=== PATIENT | male | born 1955 | race Caucasian/White ===

== ENCOUNTER → 2016-10-23 | Outpatient (CLI) | payer SELFPAY | LOC: MW.CHGS 09:33 | PROVIDERS: ATTEND Surgery | DX: I48.91 Unspecified atrial fibrillation (principal) | CPT/HCPCS: 93005 ==

== ENCOUNTER 2016-11-02 10:20 | Day surgery (SDC) | payer BC ==
[~2016-11-02 10:20] MED LIST: Lactated Ringers 1,000 ML IV SCH
[2016-11-02] MEDS ORDERED: Propofol 200 MG/20 ML SDV ONE (10:39)
[2016-11-02] MEDS ORDERED: Lidocaine 2% 5 ML SDV ONE (10:39)
--- NOTE | 2016-11-02 11:08 | PCM.PREANE ---
Preanesthetic Assessment - Anesthesia/Transfusion/Family Hx Anesthesia History: Prior Anesthesia Without Reaction Other Type of Anesthesia Reaction Comment: Denies any known problems in past, no known family hx: problems Family History of Anesthesia Reaction: No Transfusion History: No Prior Transfusion(s) - Review of Systems General: No Symptoms Pulmonary: No Symptoms Cardiovascular: No Symptoms Neurological: No Symptoms Other: Reports: None - Physical Assessment NPO Status Date: 11/01/16 NPO Status Time: 19:00 O2 Sat by Pulse Oximetry: 94 Respiratory Rate: 18 Vital Signs: Last Vital Signs Temp 36.2 C 11/02/16 10:47 Pulse 90 11/02/16 10:47 Resp 18 11/02/16 10:47 BP 113/58 L 11/02/16 10:47 Pulse Ox 94 L 11/02/16 10:47 Height: 1.73 m Weight: 87.997 kg ASA Class: 3 Mental Status: Alert & Oriented x3 Airway Class: Mallampati = 2 Dentition: Reports: Edentulous Thyro-Mental Finger Breadths: 3 Mouth Opening Finger Breadths: 3 ROM/Head Extension: Limited/Partial Lungs: Clear to auscultation, Normal respiratory effort, Decreased breath sounds Cardiovascular: Irregular Rhythm - Allergies Allergies/Adverse Reactions: Allergies Allergy/AdvReac Type Severity Reaction Status Date / Time No Known Allergies Allergy Verified 10/31/16 11:06 - Blood Blood Available: No - Anesthesia Plan Pre-Op Medication Ordered: None - Acknowledgements Anesthesia Type Planned: MAC Pt an Appropriate Candidate for the Planned Anesthesia: Yes Alternatives and Risks of Anesthesia Discussed w Pt/Guardian: Yes Pt/Guardian Understands and Agrees with Anesthesia Plan: Yes PreAnesthesia Questionnaire Other HEENT History: wears glasses, has upper and lower dentures but doesn't wear them Cardiovascular History: Reports: Afib, Hypertension Respiratory History: Reports: Other (see below) (was on oxygen [place] 2 years ago when quit smoking) Gastrointestinal History: Reports: Colon polyp Genitourinary History: Reports: Other (see below) (h/o renal insufficiency, h/o pancreatitis 2 years ago) Musculoskeletal History: Reports: Fracture, Gout Other Musculoskeletal History: hx of fx toe Neurological History: Reports: None Psychiatric History: Reports: None Endocrine/Metabolic History: Reports: None Hematologic History: Reports: Anticoagulation therapy Immunologic History: Reports: None Oncologic (Cancer) History: Reports: None Dermatologic History: Reports: None - Past Surgical History Head Surgeries/Procedures: Reports: None HEENT Surgical History: Reports: Adenoidectomy, Tonsillectomy Cardiovascular Surgical History: Reports: None Respiratory Surgical History: Reports: None GI Surgical History: Reports: Cholecystectomy, Colonoscopy (2 years ago- follow up) Other GI Surgeries/Procedures: states gall bladder "ruptured" and caused renal failure and pancreatitis, have resolved now Male Surgical History: Reports: None Endocrine Surgical History: Reports: None Neurological Surgical History: Reports: None Musculoskeletal Surgical History: Reports: Shoulder surgery Other Musculoskeletal Surgeries/Procedures:: biceps tendon repair of right shoulder Oncologic Surgical History: Reports: None - SUBSTANCE USE Smoking Status *Q: Former Smoker (quit smokig 2 years ago) Tobacco Use Within Last Twelve Months: No Second Hand Smoke Exposure: No Days Per Week of Alcohol Use: 7 Number of Drinks Per Day: 4 Total Drinks Per Week: 28 Recreational Drug Use History: No - HOME MEDS Home Medications: Home Meds Diltiazem HCl [Dilt-Xr] 240 mg PO DAILY 10/31/16 [History] Rivaroxaban [Xarelto] 20 mg PO DAILY 10/31/16 [History] - CURRENT (IN HOUSE) MEDS Current Meds: Current Medications Lactated Ringer's (Ringers, Lactated) 1,000 mls @ 125 mls/hr IV ASDIRECTED [facility] Last Admin: 11/02/16 10:45 Dose: 125 mls/hr Discontinued Medications Lidocaine (Xylocaine-Mpf 2%) Confirm Administered Dose 5 ml .ROUTE .STK-MED ONE Stop: 11/02/16 10:40 Propofol (Diprivan 20 Ml) Confirm Administered Dose 400 mg .ROUTE .STK-MED ONE Stop: 11/02/16 10:40
--- NOTE | 2016-11-02 12:18 | PCM.OPNOTE ---
- General Post-Op/Procedure Note Date of Surgery/Procedure: 11/02/16 Operative Procedure(s): Colonoscopy with multiple cold rectal polypectomies( 46722) Pre Op Diagnosis: Personal history of colon polyps. Post-Op Diagnosis: Multiple rectal polyps. Sigmoid diverticulosis. Anesthesia Technique: MAC (ASA III) Primary Surgeon: Syed Hood Condition: Good Free Text/Narrative:: Dictation [id number]
[2016-11-02] MEDS ORDERED: Lactated Ringers 1,000 ML IV SCH (12:30)
--- NOTE | 2016-11-02 12:57 | PCM.POSTAN ---
POST ANESTHESIA ASSESSMENT - MENTAL STATUS Mental Status: alert, oriented - RESPIRATORY Respiratory Status: respiratory rate WNL - CARDIOVASCULAR CV Status: pulse rate WNL, blood pressure stable - GASTROINTESTINAL GI Status: no symptoms - POST OP HYDRATION Hydration Status: adequate & stable - OBSERVATIONS Free Text/Narrative:: no anesthesia problems
[2016-11-02 14:24] VITALS: BP 110/72
--- NOTE | 2016-11-02 20:33 | OR ---
SURGEON: Syed Hood M.D. DATE OF PROCEDURE: 11/02/2016 PROCEDURE PERFORMED: Colonoscopy with multiple cold rectal polypectomy. ANESTHESIA: MAC. ASA CLASSIFICATION: III. PREOPERATIVE DIAGNOSIS: Personal history of colon polyps. POSTOPERATIVE DIAGNOSES: 1. Multiple rectal polyps. 2. Sigmoid diverticulosis. DESCRIPTION OF PROCEDURE: The patient was taken to the endoscopy room, positioned on the endoscopy table in a left lateral decubitus position. Time-out was called for appropriate identification of the patient and procedure. Monitored anesthesia care was provided. The colonoscope was inserted into the rectum and advanced with moderate difficulty to the cecum where the colonoscope was retroflexed to visualize the ascending colon from below. The colonoscope was then straightened and slowly withdrawn. The cecum, ascending colon, hepatic flexure, transverse colon, splenic flexure, and descending colon showed no tumors, polyps, diverticula, angiodysplasia, or evidence of inflammatory bowel disease. Sigmoid colon demonstrates significant diverticular change with moderate spasm. No polyps were encountered in the sigmoid colon. The colonoscope was withdrawn to the rectum where multiple small polyps were encountered. These were removed with the cold biopsy forceps. No significant bleeding was noted. The colonoscope was retroflexed in the rectum to visualize the anal orifice from above. No tumors were seen. Multiple small polyps were seen and removed. No acute hemorrhoidal changes were noted. The colonoscope was then straightened, the rectum aspirated, and the colonoscope removed. The patient tolerated the procedure well and was taken to recovery room in stable condition. MIRI / JULIA /[id number]
== END 2016-11-02 13:10 | disposition home or self-care (01) ==
LOC: MW.SDS 10:20
PROVIDERS: ATTEND Surgery
PROC: 0DBP8ZX Excision of Rectum, Via Natural or Artificial Opening Endoscopic, Diagnostic (ICD-10-PCS; principal; 2016-11-02)
DX: Z12.11 Encounter for screening for malignant neoplasm of colon (principal); D12.8 Benign neoplasm of rectum; K57.30 Diverticulosis of large intestine without perforation or abscess without bleeding; M10.9 Gout, unspecified; I48.91 Unspecified atrial fibrillation; Z79.01 Long term (current) use of anticoagulants; Z79.899 Other long term (current) drug therapy; F17.210 Nicotine dependence, cigarettes, uncomplicated
CPT/HCPCS: 45380; J7120; 00810; 88305; J2704

== ENCOUNTER 2018-12-03 09:34 | Inpatient (IN) | payer MEDICARE ==
[2018-12-03] MEDS ORDERED: Furosemide 40 MG/4 ML VIAL IVPUSH ONE (09:56)
--- NOTE | 2018-12-03 10:04 | PCM.HP ---
<Nickolas Mccartney - Last Filed: 12/03/18 09:59> H&P History of Present Illness - General Date of Service: 12/03/18 Admit Problem/Dx: Admission Diagnosis/Problem Admission Diagnosis/Problem CHF, Congestive heart failure Source of Information: Patient History Limitations: Reports: No Limitations - History of Present Illness Initial Comments - Free Text/Narative: 63M hx of A. Fib, HTN, former tobacco user that presented to outpatient PCP earlier today with a chief complaint of shortness of breath and peripheral edema and was transferred here for further management. At the time of this note , workup obtained at outpatient clinic hasnt been sent over to me yet which includes a CXR. Patient tells me that he has been experiencing these symptoms for the past 1-2 months. He endorses orthopnea, sob on exertion. No active chest pain, cough, palpitations. - Related Data Allergies/Adverse Reactions: Allergies Allergy/AdvReac Type Severity Reaction Status Date / Time No Known Allergies Allergy Verified 10/31/16 11:06 Home Medications: Home Meds Diltiazem HCl [Dilt-Xr] 240 mg PO DAILY 10/31/16 [History] Rivaroxaban [Xarelto] 20 mg PO DAILY 10/31/16 [History] Past Medical History Other HEENT History: wears glasses, has upper and lower dentures but doesn't wear them Cardiovascular History: Reports: Afib, Hypertension Respiratory History: Reports: Other (See Below) Gastrointestinal History: Reports: Colon Polyp Genitourinary History: Reports: Other (See Below) Musculoskeletal History: Reports: Fracture, Gout Other Musculoskeletal History: hx of fx toe Neurological History: Reports: None Psychiatric History: Reports: None Endocrine/Metabolic History: Reports: None Hematologic History: Reports: Anticoagulation Therapy Immunologic History: Reports: None Oncologic (Cancer) History: Reports: None Dermatologic History: Reports: None - Past Surgical History Musculoskeletal Surgical History: Reports: Shoulder Surgery H&P Review of Systems - Review of Systems: Review Of Systems: ROS reveals no pertinent complaints other than HPI. Exam - Exam Exam: See Below - Exam Quality Assessment: Supplemental Oxygen General: Alert, Oriented, Cooperative HEENT: Conjunctiva Clear, EOMI Neck: Supple, Trachea Midline Lungs: Clear to Auscultation, Decreased Breath Sounds (decreased breath sounds on R lung base, otherwise moving air well in other lung humphries) Cardiovascular: Regular Rate, Regular Rhythm, Normal S1, Normal S2 Back Exam: Normal Inspection, Full Range of Motion, NT Extremities: Normal Range of Motion, Non-Tender, Other (2+ pitting edema bilaterally) Peripheral Pulses: 1+: Dorsalis Pedis (L), Dorsalis Pedis (R) Skin: Warm, Dry, Intact Neurological: Cranial Nerves Intact, Reflexes Equal Bilateral Neuro Extensive - Mental Status: Alert, Oriented x3, Normal Mood/Affect, Normal Cognition Psychiatric: Alert, Normal Affect, Normal Mood Problem List Initiated/Reviewed/Updated: Yes Orders Last 24hrs: Active Orders 24 hr Category Date Time Status Patient Status [ADT] Routine ADT 12/03/18 09:54 Ordered Cardiac Monitoring [RC] CONTINUOUS Care 12/03/18 09:54 Ordered Daily Weight [Height and Weight] [RC] DAILY Care 12/03/18 09:57 Ordered EKG Documentation Completion [RC] STAT Care 12/03/18 09:54 Ordered Intake and Output Strict [RC] ASDIRECTED Care 12/03/18 09:57 Ordered Oxygen Therapy [RC] PRN Care 12/03/18 09:54 Ordered Up ad Kassie [RC] ASDIRECTED Care 12/03/18 09:54 Ordered VTE/DVT Education [RC] PER UNIT ROUTINE Care 12/03/18 09:54 Ordered Vital Signs [RC] Q4H Care 12/03/18 09:54 Ordered Heart Healthy Diet [DIET] Diet 12/03/18 Lunch Ordered Echo Comp wo Cont [US] Urgent Exams 12/03/18 09:56 Ordered CBC W/O DIFF,HEMOGRAM [HEME] Stat Lab 12/03/18 09:54 Ordered COMPREHENSIVE METABOLIC PN,CMP [CHEM] Stat Lab 12/03/18 09:54 Ordered TROPONIN I [CHEM] Stat Lab 12/03/18 09:54 Ordered Furosemide [Lasix] Med 12/03/18 09:56 Once 40 mg IVPUSH NOW ONE Medication Orders Furosemide (Lasix) 40 mg IVPUSH NOW ONE Stop: 12/03/18 09:57 Assessment/Plan Comment:: Assessment: #1. Hypoxia #2. Congestive heart failure exacerbation #3. Peripheral edema #4. History of A. Fib, chronic anticoagulation, HTN, former tobacco abuse Plan: #1. CBC, CMP, Troponin, EKG, PT/INR, Echo #2. Daily weight, fluid restriction <2L. Strict I's and O's. Titrate O2 as needed #3. IV lasix 40mg x1 #4. Obtain outside facility CXR #5. Restart home meds #6. Admit as inpatient. Vitals per floor. Cardiac tele. <Yordan Musa - Last Filed: 12/03/18 10:37> H&P History of Present Illness - General Admit Problem/Dx: Admission Diagnosis/Problem Admission Diagnosis/Problem CHF, Congestive heart failure I have seen and examined to patient independently of medical chief technician, Nickolas Mccartney MD. I have discussed the case for care of this patient with him. I have reviewed and approve of the plan of care as outlined by medical chief technician. Please see orders. Orders Last 24hrs: Active Orders 24 hr Category Date Time Status Patient Status [ADT] Routine ADT 12/03/18 09:54 Active Cardiac Monitoring [RC] CONTINUOUS Care 12/03/18 09:54 Active Daily Weight [Height and Weight] [RC] DAILY Care 12/03/18 09:57 Active EKG Documentation Completion [RC] STAT Care 12/03/18 09:54 Active Intake and Output Strict [RC] ASDIRECTED Care 12/03/18 09:57 Active Oxygen Therapy [RC] PRN Care 12/03/18 09:54 Active Telemetry Monitoring [Cardiac Monitoring] [RC] . Care 12/03/18 09:54 Active DIRECTED Up ad Kassie [RC] ASDIRECTED Care 12/03/18 09:54 Active VTE/DVT Education [RC] PER UNIT ROUTINE Care 12/03/18 09:54 Active Vital Signs [RC] Q4H Care 12/03/18 09:54 Active Heart Healthy Diet [DIET] Diet 12/03/18 Lunch Active Echo Comp wo Cont [US] Urgent Exams 12/03/18 09:56 Ordered CBC W/O DIFF,HEMOGRAM [HEME] Stat Lab 12/03/18 10:09 Received COMPREHENSIVE METABOLIC PN,CMP [CHEM] Stat Lab 12/03/18 10:09 Received INR,PT,PROTHROMBIN TIME [COAG] Stat Lab 12/03/18 10:04 Ordered TROPONIN I [CHEM] Stat Lab 12/03/18 10:09 Received
[2018-12-03 10:53] LABS: CHLORIDE,CL 91 mmol/L (98-107); SODIUM,NA 126 mmol/L (136-148)
[2018-12-03] MEDS: Diltiazem 120 MG Cap.CD PO SCH (12:20)
[2018-12-03] MEDS: Lisinopril 5 MG Tab PO SCH (12:20)
[2018-12-03] MEDS: Insulin Aspart 100 Units/ML 3 ML Pen SUBCUT SCH ×2 (13:16→18:16)
[2018-12-03] MEDS: Furosemide 40 MG/4 ML VIAL IVPUSH SCH (18:17)
[2018-12-04] MEDS: Furosemide 40 MG/4 ML VIAL IVPUSH SCH ×2 (06:17→18:13)
[2018-12-04] MEDS: Insulin Aspart 100 Units/ML 3 ML Pen SUBCUT SCH ×3 (06:38→17:48)
[2018-12-04 06:53] LABS: CHLORIDE,CL 96 mmol/L (98-107); SODIUM,NA 131 mmol/L (136-148)
[2018-12-04] MEDS: Lisinopril 5 MG Tab PO SCH (08:42)
[2018-12-04] MEDS: Diltiazem 120 MG Cap.CD PO SCH (08:43)
--- NOTE | 2018-12-04 09:31 | PCM.PN ---
<Nickolas Mccartney - Last Filed: 12/04/18 09:27> - General Info Date of Service: 12/04/18 Subjective Update: Feels better, breathing comfortably. No nausea or vomiting, chest pain. - Review of Systems General: Reports: Other (see hpi) - Patient Data Vitals - Most Recent: Last Vital Signs Temp 36.4 C 12/04/18 07:40 Pulse 70 12/04/18 08:43 Resp 16 12/04/18 07:40 BP 130/90 12/04/18 08:43 Pulse Ox 95 12/04/18 07:40 Weight - Most Recent: 90.446 kg I&O - Last 24 Hours: Intake & Output 12/03/18 12/04/18 12/04/18 22:59 06:59 14:59 Intake Total 300 600 Output Total 3930 2110 Balance -3630 -1510 Lab Results Last 24 Hours: Laboratory Results - last 24 hr 12/03/18 12/03/18 12/03/18 Range/Units 10:09 10:09 10:09 WBC 7.79 (4.0-11.0) K/uL RBC 5.02 (4.50-5.90) M/uL Hgb 15.4 (13.0-17.0) g/dL Hct 44.2 (38.0-50.0) % MCV 88.0 (80.0-98.0) fL MCH 30.7 (27.0-32.0) pg MCHC 34.8 (31.0-37.0) g/dL RDW Std Deviation 46.9 (28.0-62.0) fl RDW Coeff of Ijeoma 15 (11.0-15.0) % Plt Count 141 L (150-400) K/uL MPV 11.00 (7.40-12.00) fL Neut % (Auto) (48.0-80.0) % Lymph % (Auto) (16.0-40.0) % [place] % (Auto) (0.0-15.0) % Eos % (Auto) (0.0-7.0) % Baso % (Auto) (0.0-1.5) % Neut # (Auto) (1.4-5.7) K/uL Lymph # (Auto) (0.6-2.4) K/uL [place] # (Auto) (0.0-0.8) K/uL Eos # (Auto) (0.0-0.7) K/uL Baso # (Auto) (0.0-0.1) K/uL Nucleated RBC % 0.0 /100WBC Nucleated RBCs # 0 K/uL INR Sodium 126 L (136-148) mmol/L Potassium 4.6 (3.5-5.1) mmol/L Chloride 91 L (98-107) mmol/L Carbon Dioxide 24.8 (21.0-32.0) mmol/L BUN 6 L (7.0-18.0) mg/dL Creatinine 0.8 (0.8-1.3) mg/dL Est Cr Clr Drug Dosing 131.32 mL/min Estimated GFR (MDRD) > 60.0 ml/min Glucose 130 H (74-106) mg/dL POC Glucose (60-110) mg/dL Calcium 9.1 (8.5-10.1) mg/dL Total Bilirubin 1.1 H (0.2-1.0) mg/dL AST 28 (15-37) IU/L ALT 20 (14-63) IU/L Alkaline Phosphatase 163 H (46-116) U/L Troponin I < 0.050 (0.000-0.056) ng/mL B-Natriuretic Peptide 685 H (<100) PG/ML Total Protein 7.5 (6.4-8.2) g/dL Albumin 3.8 (3.4-5.0) g/dL Globulin 3.7 (2.6-4.0) g/dL Albumin/Globulin Ratio 1.0 (0.9-1.6) 12/03/18 12/03/18 12/03/18 Range/Units 12:58 13:26 17:36 WBC (4.0-11.0) K/uL RBC (4.50-5.90) M/uL Hgb (13.0-17.0) g/dL Hct (38.0-50.0) % MCV (80.0-98.0) fL MCH (27.0-32.0) pg MCHC (31.0-37.0) g/dL RDW Std Deviation (28.0-62.0) fl RDW Coeff of Ijeoma (11.0-15.0) % Plt Count (150-400) K/uL MPV (7.40-12.00) fL Neut % (Auto) (48.0-80.0) % Lymph % (Auto) (16.0-40.0) % [place] % (Auto) (0.0-15.0) % Eos % (Auto) (0.0-7.0) % Baso % (Auto) (0.0-1.5) % Neut # (Auto) (1.4-5.7) K/uL Lymph # (Auto) (0.6-2.4) K/uL [place] # (Auto) (0.0-0.8) K/uL Eos # (Auto) (0.0-0.7) K/uL Baso # (Auto) (0.0-0.1) K/uL Nucleated RBC % /100WBC Nucleated RBCs # K/uL INR 2.12 Sodium (136-148) mmol/L Potassium (3.5-5.1) mmol/L Chloride (98-107) mmol/L Carbon Dioxide (21.0-32.0) mmol/L BUN (7.0-18.0) mg/dL Creatinine (0.8-1.3) mg/dL Est Cr Clr Drug Dosing mL/min Estimated GFR (MDRD) ml/min Glucose (74-106) mg/dL POC Glucose 128 H 132 H (60-110) mg/dL Calcium (8.5-10.1) mg/dL Total Bilirubin (0.2-1.0) mg/dL AST (15-37) IU/L ALT (14-63) IU/L Alkaline Phosphatase (46-116) U/L Troponin I (0.000-0.056) ng/mL B-Natriuretic Peptide (<100) PG/ML Total Protein (6.4-8.2) g/dL Albumin (3.4-5.0) g/dL Globulin (2.6-4.0) g/dL Albumin/Globulin Ratio (0.9-1.6) 12/03/18 12/04/18 12/04/18 Range/Units 21:32 06:07 06:07 WBC (4.0-11.0) K/uL RBC (4.50-5.90) M/uL Hgb (13.0-17.0) g/dL Hct (38.0-50.0) % MCV (80.0-98.0) fL MCH (27.0-32.0) pg MCHC (31.0-37.0) g/dL RDW Std Deviation (28.0-62.0) fl RDW Coeff of Ijeoma (11.0-15.0) % Plt Count (150-400) K/uL MPV (7.40-12.00) fL Neut % (Auto) (48.0-80.0) % Lymph % (Auto) (16.0-40.0) % [place] % (Auto) (0.0-15.0) % Eos % (Auto) (0.0-7.0) % Baso % (Auto) (0.0-1.5) % Neut # (Auto) (1.4-5.7) K/uL Lymph # (Auto) (0.6-2.4) K/uL [place] # (Auto) (0.0-0.8) K/uL Eos # (Auto) (0.0-0.7) K/uL Baso # (Auto) (0.0-0.1) K/uL Nucleated RBC % /100WBC Nucleated RBCs # K/uL INR 1.61 Sodium 131 L (136-148) mmol/L Potassium 3.6 (3.5-5.1) mmol/L Chloride 96 L (98-107) mmol/L Carbon Dioxide 27.3 (21.0-32.0) mmol/L BUN 8 (7.0-18.0) mg/dL Creatinine 0.8 (0.8-1.3) mg/dL Est Cr Clr Drug Dosing 120.91 mL/min Estimated GFR (MDRD) > 60.0 ml/min Glucose 138 H (74-106) mg/dL POC Glucose 121 H (60-110) mg/dL Calcium 8.9 (8.5-10.1) mg/dL Total Bilirubin 1.4 H (0.2-1.0) mg/dL AST 26 (15-37) IU/L ALT 20 (14-63) IU/L Alkaline Phosphatase 142 H (46-116) U/L Troponin I (0.000-0.056) ng/mL B-Natriuretic Peptide (<100) PG/ML Total Protein 6.9 (6.4-8.2) g/dL Albumin 3.3 L (3.4-5.0) g/dL Globulin 3.6 (2.6-4.0) g/dL Albumin/Globulin Ratio 0.9 (0.9-1.6) 12/04/18 12/04/18 Range/Units 06:07 06:28 WBC 6.55 (4.0-11.0) K/uL RBC 4.74 (4.50-5.90) M/uL Hgb 14.4 (13.0-17.0) g/dL Hct 42.2 (38.0-50.0) % MCV 89.0 (80.0-98.0) fL MCH 30.4 (27.0-32.0) pg MCHC 34.1 (31.0-37.0) g/dL RDW Std Deviation 48.0 (28.0-62.0) fl RDW Coeff of Ijeoma 15 (11.0-15.0) % Plt Count 141 L (150-400) K/uL MPV 10.50 (7.40-12.00) fL Neut % (Auto) 76.4 (48.0-80.0) % Lymph % (Auto) 10.5 L (16.0-40.0) % [place] % (Auto) 10.5 (0.0-15.0) % Eos % (Auto) 1.7 (0.0-7.0) % Baso % (Auto) 0.9 (0.0-1.5) % Neut # (Auto) 5.0 (1.4-5.7) K/uL Lymph # (Auto) 0.7 (0.6-2.4) K/uL [place] # (Auto) 0.7 (0.0-0.8) K/uL Eos # (Auto) 0.1 (0.0-0.7) K/uL Baso # (Auto) 0.1 (0.0-0.1) K/uL Nucleated RBC % 0.0 /100WBC Nucleated RBCs # 0 K/uL INR Sodium (136-148) mmol/L Potassium (3.5-5.1) mmol/L Chloride (98-107) mmol/L Carbon Dioxide (21.0-32.0) mmol/L BUN (7.0-18.0) mg/dL Creatinine (0.8-1.3) mg/dL Est Cr Clr Drug Dosing mL/min Estimated GFR (MDRD) ml/min Glucose (74-106) mg/dL POC Glucose 139 H (60-110) mg/dL Calcium (8.5-10.1) mg/dL Total Bilirubin (0.2-1.0) mg/dL AST (15-37) IU/L ALT (14-63) IU/L Alkaline Phosphatase (46-116) U/L Troponin I (0.000-0.056) ng/mL B-Natriuretic Peptide (<100) PG/ML Total Protein (6.4-8.2) g/dL Albumin (3.4-5.0) g/dL Globulin (2.6-4.0) g/dL Albumin/Globulin Ratio (0.9-1.6) Med Orders - Current: Current Medications Diltiazem HCl (Cardizem Cd) 240 mg PO DAILY [facility] Last Admin: 12/04/18 08:43 Dose: 240 mg Furosemide (Lasix) 40 mg IVPUSH Q12H [facility] Last Admin: 12/04/18 06:17 Dose: 40 mg Insulin Aspart (Novolog) 0 unit SUBCUT TIDAC [facility]; Protocol Last Admin: 12/04/18 06:38 Dose: Not Given Lisinopril (Prinivil) 5 mg PO DAILY [facility] Last Admin: 12/04/18 08:42 Dose: 5 mg Warfarin Sodium (Coumadin Ask) 0 each PO DAILY@1400 [facility] Warfarin Sodium (Coumadin) 2 mg PO 12/04/18@1400 [facility] Stop: 12/04/18 14:01 Discontinued Medications Furosemide (Lasix) 40 mg IVPUSH NOW ONE Stop: 12/03/18 09:57 Last Admin: 12/03/18 12:16 Dose: 40 mg Warfarin Sodium (Coumadin) 1 mg PO TUFR [facility] Warfarin Sodium (Coumadin) 1.5 mg PO SUMOWETHSA [facility] Warfarin Sodium (Coumadin) 1 mg PO 12/03/18@1500 [facility] Stop: 12/03/18 15:01 Last Admin: 12/03/18 16:10 Dose: 1 mg - Exam Quality Assessment: Supplemental Oxygen General: Alert, Oriented HEENT: Pupils Equal, Pupils Reactive, EOMI, Mucous Membr. Moist/Gu-[place] Neck: Supple Lungs: Clear to Auscultation, Decreased Breath Sounds (decreased sounds in L lung) Cardiovascular: Regular Rate, Regular Rhythm GI/Abdominal Exam: Normal Bowel Sounds, Soft, Non-Tender, No Organomegaly, No Distention, No Abnormal Bruit, No Mass, Pelvis Stable Back Exam: Normal Inspection Extremities: Normal Inspection, Normal Range of Motion, Non-Tender, Other (1+ edema bilaterally) Peripheral Pulses: 1+: Dorsalis Pedis (L), Dorsalis Pedis (R) Skin: Warm, Dry, Intact, Other (mild venous stasis bilaterally) Psy/Mental Status: Alert, Normal Affect, Normal Mood - Problem List Review Problem List Initiated/Reviewed/Updated: Yes - My Orders Last 24 Hours: My Active Orders 12/03/18 09:54 Patient Status [ADT] Routine EKG Documentation Completion [RC] STAT Oxygen Therapy [RC] PRN Telemetry Monitoring [Cardiac Monitoring] [RC] Q8H Up ad Kassie [RC] ASDIRECTED VTE/DVT Education [RC] PER UNIT ROUTINE Vital Signs [RC] Q4H 12/03/18 09:56 Echo Comp wo Cont [US] Urgent 12/03/18 09:57 Daily Weight [Height and Weight] [RC] DAILY Intake and Output Strict [RC] Q12H 12/03/18 11:00 Diltiazem [Cardizem CD] 240 mg PO DAILY Lisinopril [Prinivil] 5 mg PO DAILY 12/03/18 11:30 Insulin Aspart [NovoLOG] See Protocol SUBCUT TIDAC 12/03/18 18:30 Furosemide [Lasix] 40 mg IVPUSH Q12H 12/03/18 Lunch Heart Healthy Diet [DIET] - Plan Plan:: Assessment: #1. Hypoxia #2. Congestive heart failure exacerbation #3. Peripheral edema #4. History of A. Fib, chronic anticoagulation, HTN, former tobacco abuse Plan: #1. Continue IV Lasix q12h #2. Continue daily weights, I's and O's and fluid restriction #3. Titrate o2 off as tolerated #4. F/u on echo report #5. Anticipate dc 1-2 days <Yordan Musa - Last Filed: 12/04/18 11:46> - General Info Admission Dx/Problem (Free Text): I have seen and examined to patient independently of medical transcription radiology, Nickolas Mccartney MD. I have discussed the case for care of this patient with him. I have reviewed and approve of the plan of care as outlined by medical transcription radiology.. Please see orders. 2d echo reviewed by truck driving concern for pulmonary hypertension. - Patient Data Vitals - Most Recent: Last Vital Signs Temp 36.4 C 12/04/18 07:40 Pulse 70 12/04/18 08:43 Resp 16 12/04/18 07:40 BP 130/90 12/04/18 08:43 Pulse Ox 95 12/04/18 07:40 I&O - Last 24 Hours: Intake & Output 12/03/18 12/04/18 12/04/18 22:59 06:59 14:59 Intake Total 300 600 Output Total 3930 2110 Balance -3630 -1510 Lab Results Last 24 Hours: Laboratory Results - last 24 hr 12/03/18 12/03/18 12/03/18 Range/Units 10:09 12:58 13:26 WBC (4.0-11.0) K/uL RBC (4.50-5.90) M/uL Hgb (13.0-17.0) g/dL Hct (38.0-50.0) % MCV (80.0-98.0) fL MCH (27.0-32.0) pg MCHC (31.0-37.0) g/dL RDW Std Deviation (28.0-62.0) fl RDW Coeff of Ije[place] (11.0-15.0) % Plt Count (150-400) K/uL MPV (7.40-12.00) fL Neut % (Auto) (48.0-80.0) % Lymph % (Auto) (16.0-40.0) % [place] % (Auto) (0.0-15.0) % Eos % (Auto) (0.0-7.0) % Baso % (Auto) (0.0-1.5) % Neut # (Auto) (1.4-5.7) K/uL Lymph # (Auto) (0.6-2.4) K/uL [place] # (Auto) (0.0-0.8) K/uL Eos # (Auto) (0.0-0.7) K/uL Baso # (Auto) (0.0-0.1) K/uL Nucleated RBC % /100WBC Nucleated RBCs # K/uL INR 2.12 Sodium (136-148) mmol/L Potassium (3.5-5.1) mmol/L Chloride (98-107) mmol/L Carbon Dioxide (21.0-32.0) mmol/L BUN (7.0-18.0) mg/dL Creatinine (0.8-1.3) mg/dL Est Cr Clr Drug Dosing mL/min Estimated GFR (MDRD) ml/min Glucose (74-106) mg/dL POC Glucose 128 H (60-110) mg/dL Calcium (8.5-10.1) mg/dL Total Bilirubin (0.2-1.0) mg/dL AST (15-37) IU/L ALT (14-63) IU/L Alkaline Phosphatase (46-116) U/L B-Natriuretic Peptide 685 H (<100) PG/ML Total Protein (6.4-8.2) g/dL Albumin (3.4-5.0) g/dL Globulin (2.6-4.0) g/dL Albumin/Globulin Ratio (0.9-1.6) 12/03/18 12/03/18 12/04/18 Range/Units 17:36 21:32 06:07 WBC (4.0-11.0) K/uL RBC (4.50-5.90) M/uL Hgb (13.0-17.0) g/dL Hct (38.0-50.0) % MCV (80.0-98.0) fL MCH (27.0-32.0) pg MCHC (31.0-37.0) g/dL RDW Std Deviation (28.0-62.0) fl RDW Coeff of [place]je[place] (11.0-15.0) % Plt Count (150-400) K/uL MPV (7.40-12.00) fL Neut % (Auto) (48.0-80.0) % Lymph % (Auto) (16.0-40.0) % [place] % (Auto) (0.0-15.0) % Eos % (Auto) (0.0-7.0) % Baso % (Auto) (0.0-1.5) % Neut # (Auto) (1.4-5.7) K/uL Lymph # (Auto) (0.6-2.4) K/uL [place] # (Auto) (0.0-0.8) K/uL Eos # (Auto) (0.0-0.7) K/uL Baso # (Auto) (0.0-0.1) K/uL Nucleated RBC % /100WBC Nucleated RBCs # K/uL INR Sodium 131 L (136-148) mmol/L Potassium 3.6 (3.5-5.1) mmol/L Chloride 96 L (98-107) mmol/L Carbon Dioxide 27.3 (21.0-32.0) mmol/L BUN 8 (7.0-18.0) mg/dL Creatinine 0.8 (0.8-1.3) mg/dL Est Cr Clr Drug Dosing 120.91 mL/min Estimated GFR (MDRD) > 60.0 ml/min Glucose 138 H (74-106) mg/dL POC Glucose 132 H 121 H (60-110) mg/dL Calcium 8.9 (8.5-10.1) mg/dL Total Bilirubin 1.4 H (0.2-1.0) mg/dL AST 26 (15-37) IU/L ALT 20 (14-63) IU/L Alkaline Phosphatase 142 H (46-116) U/L B-Natriuretic Peptide (<100) PG/ML Total Protein 6.9 (6.4-8.2) g/dL Albumin 3.3 L (3.4-5.0) g/dL Globulin 3.6 (2.6-4.0) g/dL Albumin/Globulin Ratio 0.9 (0.9-1.6) 12/04/18 12/04/18 12/04/18 Range/Units 06:07 06:07 06:28 WBC 6.55 (4.0-11.0) K/uL RBC 4.74 (4.50-5.90) M/uL Hgb 14.4 (13.0-17.0) g/dL Hct 42.2 (38.0-50.0) % MCV 89.0 (80.0-98.0) fL MCH 30.4 (27.0-32.0) pg MCHC 34.1 (31.0-37.0) g/dL RDW Std Deviation 48.0 (28.0-62.0) fl RDW Coeff of [place]je[place] 15 (11.0-15.0) % Plt Count 141 L (150-400) K/uL MPV 10.50 (7.40-12.00) fL Neut % (Auto) 76.4 (48.0-80.0) % Lymph % (Auto) 10.5 L (16.0-40.0) % [place] % (Auto) 10.5 (0.0-15.0) % Eos % (Auto) 1.7 (0.0-7.0) % Baso % (Auto) 0.9 (0.0-1.5) % Neut # (Auto) 5.0 (1.4-5.7) K/uL Lymph # (Auto) 0.7 (0.6-2.4) K/uL [place] # (Auto) 0.7 (0.0-0.8) K/uL Eos # (Auto) 0.1 (0.0-0.7) K/uL Baso # (Auto) 0.1 (0.0-0.1) K/uL Nucleated RBC % 0.0 /100WBC Nucleated RBCs # 0 K/uL INR 1.61 Sodium (136-148) mmol/L Potassium (3.5-5.1) mmol/L Chloride (98-107) mmol/L Carbon Dioxide (21.0-32.0) mmol/L BUN (7.0-18.0) mg/dL Creatinine (0.8-1.3) mg/dL Est Cr Clr Drug Dosing mL/min Estimated GFR (MDRD) ml/min Glucose (74-106) mg/dL POC Glucose 139 H (60-110) mg/dL Calcium (8.5-10.1) mg/dL Total Bilirubin (0.2-1.0) mg/dL AST (15-37) IU/L ALT (14-63) IU/L Alkaline Phosphatase (46-116) U/L B-Natriuretic Peptide (<100) PG/ML Total Protein (6.4-8.2) g/dL Albumin (3.4-5.0) g/dL Globulin (2.6-4.0) g/dL Albumin/Globulin Ratio (0.9-1.6) // Range/Units 11:05 WBC (4.0-11.0) K/uL RBC (4.50-5.90) M/uL Hgb (13.0-17.0) g/dL Hct (38.0-50.0) % MCV (80.0-98.0) fL MCH (27.0-32.0) pg MCHC (31.0-37.0) g/dL RDW Std Deviation (28.0-62.0) fl RDW Coeff of [place]je[place] (11.0-15.0) % Plt Count (150-400) K/uL MPV (7.40-12.00) fL Neut % (Auto) (48.0-80.0) % Lymph % (Auto) (16.0-40.0) % [place] % (Auto) (0.0-15.0) % Eos % (Auto) (0.0-7.0) % Baso % (Auto) (0.0-1.5) % Neut # (Auto) (1.4-5.7) K/uL Lymph # (Auto) (0.6-2.4) K/uL [place] # (Auto) (0.0-0.8) K/uL Eos # (Auto) (0.0-0.7) K/uL Baso # (Auto) (0.0-0.1) K/uL Nucleated RBC % /100WBC Nucleated RBCs # K/uL INR Sodium (136-148) mmol/L Potassium (3.5-5.1) mmol/L Chloride (98-107) mmol/L Carbon Dioxide (21.0-32.0) mmol/L BUN (7.0-18.0) mg/dL Creatinine (0.8-1.3) mg/dL Est Cr Clr Drug Dosing mL/min Estimated GFR (MDRD) ml/min Glucose (74-106) mg/dL POC Glucose 122 H (60-110) mg/dL Calcium (8.5-10.1) mg/dL Total Bilirubin (0.2-1.0) mg/dL AST (15-37) IU/L ALT (14-63) IU/L Alkaline Phosphatase (46-116) U/L B-Natriuretic Peptide (<100) PG/ML Total Protein (6.4-8.2) g/dL Albumin (3.4-5.0) g/dL Globulin (2.6-4.0) g/dL Albumin/Globulin Ratio (0.9-1.6) Med Orders - Current: Current Medications Diltiazem HCl (Cardizem Cd) 240 mg PO DAILY [facility] Last Admin: 12/04/18 08:43 Dose: 240 mg Furosemide (Lasix) 40 mg IVPUSH Q12H [facility] Last Admin: 12/04/18 06:17 Dose: 40 mg Insulin Aspart (Novolog) 0 unit SUBCUT TIDAC [facility]; Protocol Last Admin: 12/04/18 06:38 Dose: Not Given Lisinopril (Prinivil) 5 mg PO DAILY [facility] Last Admin: 12/04/18 08:42 Dose: 5 mg Potassium Chloride (Klor-Con M20) 20 meq PO DAILY [facility] Last Admin: 12/04/18 10:32 Dose: 20 meq Warfarin Sodium (Coumadin Ask) 0 each PO DAILY@1400 [facility] Warfarin Sodium (Coumadin) 2 mg PO 12/04/18@1400 [facility] Stop: 12/04/18 14:01 Discontinued Medications Furosemide (Lasix) 40 mg IVPUSH NOW ONE Stop: 12/03/18 09:57 Last Admin: 12/03/18 12:16 Dose: 40 mg Warfarin Sodium (Coumadin) 1 mg PO TUFR [facility] Warfarin Sodium (Coumadin) 1.5 mg PO SUMOWETHSA [facility] Warfarin Sodium (Coumadin) 1 mg PO 12/03/18@1500 [facility] Stop: 12/03/18 15:01 Last Admin: 12/03/18 16:10 Dose: 1 mg - My Orders Last 24 Hours: My Active Orders 12/04/18 14:00 Warfarin Dosing [Coumadin Ask] 0 each PO DAILY@1400 Warfarin [Coumadin] 2 mg PO 12/04/18@1400
[2018-12-04] MEDS: Potassium Chloride 20 MEQ Tab.ER PO SCH (10:32)
[2018-12-04] MEDS ORDERED: Warfarin 2 MG Tab PO SCH (14:00)
[2018-12-05 05:38] LABS: CHLORIDE,CL 96 mmol/L (98-107); SODIUM,NA 132 mmol/L (136-148)
[2018-12-05] MEDS: Furosemide 40 MG/4 ML VIAL IVPUSH SCH ×2 (06:11→17:40)
[2018-12-05] MEDS: Insulin Aspart 100 Units/ML 3 ML Pen SUBCUT SCH ×3 (07:32→17:41)
[2018-12-05] MEDS: Potassium Chloride 20 MEQ Tab.ER PO SCH (08:28)
[2018-12-05] MEDS: Diltiazem 120 MG Cap.CD PO SCH (08:28)
[2018-12-05] MEDS: Lisinopril 5 MG Tab PO SCH (08:28)
--- NOTE | 2018-12-05 12:03 | PCM.PN ---
- General Info Date of Service: 12/05/18 Subjective Update: Continues to improve from a fluid overloaded/respiratory standpoint. Still on 1.5L O2 via NC. He has no complaints. - Review of Systems General: Reports: Other (see hpi) - Patient Data Vitals - Most Recent: Last Vital Signs Temp 36.6 C 12/05/18 11:49 Pulse 88 12/05/18 11:49 Resp 18 12/05/18 11:49 BP 136/78 12/05/18 11:49 Pulse Ox 94 L 12/05/18 11:49 Weight - Most Recent: 87.407 kg I&O - Last 24 Hours: Intake & Output 12/04/18 12/05/18 12/05/18 22:59 06:59 14:59 Intake Total 1880 1000 Output Total 3900 3220 Balance -2019 Lab Results Last 24 Hours: Laboratory Results - last 24 hr 12/04/18 12/05/18 12/05/18 Range/Units 17:38 04:48 06:24 Sodium 132 L (136-148) mmol/L Potassium 3.7 (3.5-5.1) mmol/L Chloride 96 L (98-107) mmol/L Carbon Dioxide 30.8 (21.0-32.0) mmol/L BUN 12 (7.0-18.0) mg/dL Creatinine 0.9 (0.8-1.3) mg/dL Est Cr Clr Drug Dosing 103.86 mL/min Estimated GFR (MDRD) > 60.0 ml/min Glucose 131 H (74-106) mg/dL POC Glucose 113 H 117 H (60-110) mg/dL Calcium 9.2 (8.5-10.1) mg/dL 12/05/18 Range/Units 11:41 Sodium (136-148) mmol/L Potassium (3.5-5.1) mmol/L Chloride (98-107) mmol/L Carbon Dioxide (21.0-32.0) mmol/L BUN (7.0-18.0) mg/dL Creatinine (0.8-1.3) mg/dL Est Cr Clr Drug Dosing mL/min Estimated GFR (MDRD) ml/min Glucose (74-106) mg/dL POC Glucose 127 H (60-110) mg/dL Calcium (8.5-10.1) mg/dL Med Orders - Current: Current Medications Diltiazem HCl (Cardizem Cd) 240 mg PO DAILY [facility] Last Admin: 12/05/18 08:28 Dose: 240 mg Furosemide (Lasix) 40 mg IVPUSH Q12H [facility] Last Admin: 12/05/18 06:11 Dose: 40 mg Insulin Aspart (Novolog) 0 unit SUBCUT TIDAC [facility]; Protocol Last Admin: 12/05/18 07:32 Dose: Not Given Lisinopril (Prinivil) 5 mg PO DAILY [facility] Last Admin: 12/05/18 08:28 Dose: 5 mg Potassium Chloride (Klor-Con M20) 20 meq PO DAILY [facility] Last Admin: 12/05/18 08:28 Dose: 20 meq Warfarin Sodium (Coumadin Ask) 0 each PO DAILY@1400 [facility] Last Admin: 12/04/18 16:34 Dose: Not Given Warfarin Sodium (Coumadin) 2 mg PO 12/05/18@1400 [facility] Stop: 12/05/18 14:01 Discontinued Medications Furosemide (Lasix) 40 mg IVPUSH NOW ONE Stop: 12/03/18 09:57 Last Admin: 12/03/18 12:16 Dose: 40 mg Warfarin Sodium (Coumadin) 1 mg PO [facility] Warfarin Sodium (Coumadin) 1.5 mg PO [facility] Warfarin Sodium (Coumadin) 1 mg PO 12/03/18@1500 [facility] Stop: 12/03/18 15:01 Last Admin: 12/03/18 16:10 Dose: 1 mg Warfarin Sodium (Coumadin) 2 mg PO 12/04/18@1400 [facility] Stop: 12/04/18 14:01 Last Admin: 12/04/18 15:35 Dose: 2 mg - Exam Quality Assessment: Supplemental Oxygen General: Alert, Oriented HEENT: Pupils Equal, Pupils Reactive, EOMI, Mucous Membr. Moist/[place] Neck: Supple Lungs: Other (decreased breath sounds on R base, otherwise moving air well without wheezing/crackles) Cardiovascular: Regular Rate, Regular Rhythm Extremities: Normal Inspection, Normal Range of Motion, Non-Tender, Normal Capillary Refill, Other (trace edema bilaterally) Peripheral Pulses: 2+: Posterior Tibial (R), Dorsalis Pedis (L), Dorsalis Pedis (R) - Problem List Review Problem List Initiated/Reviewed/Updated: Yes - My Orders Last 24 Hours: My Active Orders 12/05/18 08:35 Chest 2V [CR] Stat 12/06/18 05:11 BASIC METABOLIC PANEL,BMP [CHEM] AM 12/07/18 05:11 BASIC METABOLIC PANEL,BMP [CHEM] AM - Plan Plan:: Assessment: #1. Hypoxia #2. Congestive heart failure exacerbation #3. Peripheral edema #4. History of A. Fib, chronic anticoagulation, HTN, former tobacco abuse Plan: #1. Continue IV Lasix q12h #2. Continue daily weights, I's and O's and fluid restriction #3. Titrate o2 off as tolerated #4. Anticipate dc 1-2 days
[2018-12-05] MEDS ORDERED: Warfarin 2 MG Tab PO SCH ×2 (14:00→14:35)
[2018-12-06 06:27] LABS: CHLORIDE,CL 97 mmol/L (98-107); SODIUM,NA 134 mmol/L (136-148)
[2018-12-06] MEDS: Furosemide 40 MG/4 ML VIAL IVPUSH SCH (06:43)
[2018-12-06] MEDS: Insulin Aspart 100 Units/ML 3 ML Pen SUBCUT SCH ×2 (08:15→11:45)
[2018-12-06] MEDS: Potassium Chloride 20 MEQ Tab.ER PO SCH (08:18)
[2018-12-06] MEDS: Lisinopril 5 MG Tab PO SCH (08:19)
[2018-12-06] MEDS: Diltiazem 120 MG Cap.CD PO SCH (08:19)
[2018-12-06 12:32] VITALS: BP 146/65
--- NOTE | 2018-12-06 14:44 | PCM.DCSUM1 ---
Discharge Summary - Discharge Data Discharge Date: 12/06/18 Discharge Disposition: Home, Self-Care 01 Condition: Good - Patient Summary/Data Hospital Course: 63 yo male with pmh of atrial fibrillation and hypertension who was admitted for new onset congestive heart failure. He presented with shortness of breath, orthopnea and increasing leg edema. He was noted to be satting 78% on room air. CXR showed mild bibasilar atelectasis and small right-sided pleural effusion. He was treated with IV lasix with improvement in his dyspnea. Today he is requesting discharge home despite recommendations for further inpatient diuresis. He was discharged home with oral lasix. Echocardiogram was obtained but report is still pending. He has follow up with Dr. Araiza on 12/12/18. He was set up with home oxygen at one liter at rest and 4 Liters with exertion. - Patient Instructions Diet: Heart Healthy Diet Fluid Restriction: 2000 mL Activity: As Tolerated - Discharge Plan Prescriptions/Med Rec: Furosemide [Lasix] 40 mg PO DAILY #30 tablet Home Medications: Home Meds Diltiazem HCl [Dilt-Xr] 240 mg PO DAILY 10/31/16 [History] Lisinopril 5 mg PO DAILY 12/03/18 [History] Naproxen Sodium 220 mg PO . NEEDED PRN 12/03/18 [History] Sildenafil [Revatio] 60 mg PO DAILY PRN 12/03/18 [History] Warfarin [Coumadin] 1 mg PO TUFR 12/03/18 [History] Warfarin [Coumadin] 1.5 mg PO SUMOWETHSA 12/03/18 [History] metFORMIN [Glucophage XR] 1,000 mg PO .WITH EVENING MEAL 12/03/18 [History] Furosemide [Lasix] 40 mg PO DAILY #30 tablet 12/06/18 [Rx] Oxygen Flow Rate (L/min): 1 Patient Handouts: Furosemide tablets, Heart-Healthy Eating Plan, [id number], Home Oxygen Use, Adult, Heart Failure, [id number], Form - Daily Weight Record Referrals: [facility] [Outside] Herminio Araiza MD [Primary Care Provider] - 12/12/18 10:30 am (Arrive 15 minutes eary with ID and insurance card) - Discharge Summary/Plan Comment DC Time >30 min.: No - Patient Data Vitals - Most Recent: Last Vital Signs Temp 36.8 C 12/06/18 12:00 Pulse 71 12/06/18 12:00 Resp 18 12/06/18 12:00 BP 146/65 H 12/06/18 12:00 Pulse Ox 94 L 12/06/18 12:00 Weight - Most Recent: 86.999 kg I&O - Last 24 hours: Intake & Output 12/05/18 12/06/18 12/06/18 22:59 06:59 14:59 Intake Total 700 500 Output Total 1370 790 Balance -670 -290 Lab Results - Last 24 hrs: Laboratory Results - last 24 hr 12/05/18 12/06/18 12/06/18 Range/Units 16:29 05:55 05:55 INR 1.13 Sodium 134 L (136-148) mmol/L Potassium 3.9 (3.5-5.1) mmol/L Chloride 97 L (98-107) mmol/L Carbon Dioxide 29.4 (21.0-32.0) mmol/L BUN 18 (7.0-18.0) mg/dL Creatinine 0.9 (0.8-1.3) mg/dL Est Cr Clr Drug Dosing 81.28 mL/min Estimated GFR (MDRD) > 60.0 ml/min Glucose 143 H (74-106) mg/dL POC Glucose 161 H (60-110) mg/dL Calcium 9.8 (8.5-10.1) mg/dL 12/06/18 12/06/18 Range/Units 06:11 11:33 INR Sodium (136-148) mmol/L Potassium (3.5-5.1) mmol/L Chloride (98-107) mmol/L Carbon Dioxide (21.0-32.0) mmol/L BUN (7.0-18.0) mg/dL Creatinine (0.8-1.3) mg/dL Est Cr Clr Drug Dosing mL/min Estimated GFR (MDRD) ml/min Glucose (74-106) mg/dL POC Glucose 129 H 142 H (60-110) mg/dL Calcium (8.5-10.1) mg/dL Med Orders - Current: Current Medications Diltiazem HCl (Cardizem Cd) 240 mg PO DAILY JADEN Last Admin: 12/06/18 08:19 Dose: 240 mg Furosemide (Lasix) 40 mg IVPUSH Q12H [facility] Last Admin: 12/06/18 06:43 Dose: 40 mg Insulin Aspart (Novolog) 0 unit SUBCUT TIDAC [facility]; Protocol Last Admin: 12/06/18 11:45 Dose: Not Given Lisinopril (Prinivil) 5 mg PO DAILY [facility] Last Admin: 12/06/18 08:19 Dose: 5 mg Potassium Chloride (Klor-Con M20) 20 meq PO DAILY [facility] Last Admin: 12/06/18 08:18 Dose: 20 meq Warfarin Sodium (Coumadin Ask) 0 each PO DAILY@1400 [facility] Last Admin: 12/06/18 13:30 Dose: Not Given Warfarin Sodium (Coumadin) 3 mg PO DAILY@1400 [facility] Last Admin: 12/06/18 13:50 Dose: 3 mg Discontinued Medications Furosemide (Lasix) 40 mg IVPUSH NOW ONE Stop: 12/03/18 09:57 Last Admin: 12/03/18 12:16 Dose: 40 mg Warfarin Sodium (Coumadin) 1 mg PO TUFR [facility] Warfarin Sodium (Coumadin) 1.5 mg PO SUMOWETHSA [facility] Warfarin Sodium (Coumadin) 1 mg PO 12/03/18@1500 [facility] Stop: 12/03/18 15:01 Last Admin: 12/03/18 16:10 Dose: 1 mg Warfarin Sodium (Coumadin) 2 mg PO 12/04/18@1400 [facility] Stop: 12/04/18 14:01 Last Admin: 12/04/18 15:35 Dose: 2 mg Warfarin Sodium (Coumadin) 2 mg PO 12/05/18@1400 [facility] Stop: 12/05/18 14:01 Last Admin: 12/05/18 14:42 Dose: Not Given Warfarin Sodium (Coumadin) 2 mg PO 12/05/18@1435 [facility] Stop: 12/05/18 14:36 Last Admin: 12/05/18 14:42 Dose: 2 mg
--- NOTE | 2018-12-09 07:30 | CR ---
EXAM DATE: 12/03/18 PATIENT'S AGE: 63 Patient: TINA ANDERSEN Facility: [facility] Site : [id number] Study: XRay-Chest [id number]/24/[id number] 9:07:54 AM Ordering Physician: CLARK SHAH MD Final Report: INDICATION: SOB FINDINGS: PA and lateral chest x-rays show a normal cardiac silhouette. Atherosclerotic aorta. The lungs show mild bibasilar atelectasis. No other focal pulmonary opacities. Small right-sided pleural effusion. No pneumothorax. IMPRESSION: Mild bibasilar atelectasis. Small right-sided pleural effusion. Dictated by Waylon Escoto MD @ 12/05/2018 9:38:02 AM Dictated by: Waylon Escoto MD @ 12/05/2018 09:38:11 Signed by: Waylon Escoto MD @12/05/2018 9:38:11 AM (Electronic Signature) Report Signed by Proxy. [email or web address]
== END 2018-12-06 15:35 | disposition home or self-care (01) | DRG 293 ==
LOC: MW.MS 09:34
PROVIDERS: ADMIT Internal Medicine; ATTEND Internal Medicine
DX: I11.0 Hypertensive heart disease with heart failure (principal); I50.9 Heart failure, unspecified; I48.91 Unspecified atrial fibrillation; R09.02 Hypoxemia; H54.7 Unspecified visual loss; Z87.891 Personal history of nicotine dependence; Z79.01 Long term (current) use of anticoagulants; Z79.899 Other long term (current) drug therapy
CPT/HCPCS: 36415; 71046; 80048; 80053; 82962; 83880; 84484; 85025; 85027; 85610; 93306; A9270-GY; J1815-GY; J1940

== ENCOUNTER 2019-04-14 09:25 | Inpatient (IN) | payer MEDICARE, OTHER ==
[2019-04-14] MEDS ORDERED: Sodium Chloride 0.9% 2.5 ML Syringe FLUSH PRN ×2 (09:42)
[2019-04-14] MEDS ORDERED: Sodium Chloride 0.9% 10 ML Syringe FLUSH PRN (09:42)
--- NOTE | 2019-04-14 10:15 | EDM.PDOC ---
ED HPI GENERAL MEDICAL PROBLEM - General Chief Complaint: Respiratory Problem Stated Complaint: CLINIC REFFERAL Time Seen by Provider: 04/14/19 09:26 Source of Information: Reports: Patient History Limitations: Reports: No Limitations - History of Present Illness INITIAL COMMENTS - FREE TEXT/NARRATIVE: HISTORY AND PHYSICAL: History of present illness: Patient is a 63-year-old male who presents to ER after being referred from PCP' s office for shortness of breath, 20 pound weight gain and hypoxia. Patient does have a past medical history of congestive heart failure, atrial fibrillation on anticoagulation, DM type II and hypertension. He was noted to have oxygen sat in the ~70's at his PCP's office this morning. Patient reports feeling short of breath for the past 1 week and has difficulty breathing when lying down. He has also noticed that his stomach has been getting more distended over the past 1 week but has not had any abdominal pain. He reports taking all of his medications regularly and denies any recent illness. Review of systems: As per history of present illness and below otherwise all systems reviewed and negative. Past medical history: As per history of present illness and as reviewed below otherwise noncontributory. Surgical history: As per history of present illness and as reviewed below otherwise noncontributory. Social history: No reported history of drug or alcohol abuse. Family history: As per history of present illness and as reviewed below otherwise noncontributory. Physical exam: HEENT: Atraumatic, normocephalic, pupils reactive, negative for conjunctival pallor or scleral icterus, mucous membranes moist, throat clear, neck supple, nontender, trachea midline. Neck: JVD. Lungs: crackles appreciated in bibasilar lung bases. Heart: irregular rate, irregular rhythm. Abdomen: Distended, soft, nontender, normal bowel sounds. Genitourinary: Deferred. Rectal: Deferred. Extremities: 2+ pitting edema bilaterally. Neuro: Awake, alert, oriented. Cranial nerves II through XII unremarkable. No focal neurological deficits appreciated. Diagnostics: CBC, CMP, TROP, PT/INR, BNP, CXR, EKG Therapeutics: IV lasix 40 mg x 1 Impression: CHF exacerbation, Hyponatremia, Hyperbilirubinemia Plan: Patient accepted for admission by hospitalist Dr. Garcia for observation. Admitted to general medical floor. Definitive disposition and diagnosis as appropriate pending reevaluation and review of above. bilat lower legs Pain Score (Numeric/FACES): 5 - Related Data Allergies Allergy/AdvReac Type Severity Reaction Status Date / Time No Known Allergies Allergy Verified 04/14/19 12:12 Home Meds: Home Meds Diltiazem HCl [Dilt-Xr] 240 mg PO DAILY 10/31/16 [History] Lisinopril 10 mg PO DAILY 12/03/18 [History] Naproxen Sodium 220 mg PO . NEEDED PRN 12/03/18 [History] Sildenafil [Revatio] 60 mg PO DAILY PRN 12/03/18 [History] Warfarin [Coumadin] 2 mg PO DAILY 12/03/18 [History] metFORMIN [Glucophage XR] 1,000 mg PO .WITH EVENING MEAL 12/03/18 [History] Furosemide [Lasix] 80 mg PO DAILY 04/14/19 [History] Past Medical History - Past Health History Medical/Surgical History: Denies Medical/Surgical History Other HEENT History: wears glasses, has upper and lower dentures but doesn't wear them. Patient reports he gets bleeding behind his right eye Cardiovascular History: Reports: Afib, Hypertension Respiratory History: Reports: Other (See Below) Gastrointestinal History: Reports: Colon Polyp Genitourinary History: Reports: Other (See Below) Musculoskeletal History: Reports: Fracture, Gout Other Musculoskeletal History: hx of fx toe Neurological History: Reports: None Psychiatric History: Reports: None Endocrine/Metabolic History: Reports: Diabetes, Type II Hematologic History: Reports: Anticoagulation Therapy Immunologic History: Reports: None Oncologic (Cancer) History: Reports: None Dermatologic History: Reports: None Other Dermatologic History: scabs on shoulders, - Past Surgical History Head Surgeries/Procedures: Reports: None Cardiovascular Surgical History: Reports: None GI Surgical History: Reports: Cholecystectomy Male Surgical History: Reports: None Musculoskeletal Surgical History: Reports: Shoulder Surgery Social & Family History - Tobacco Use Smoking Status *Q: Former Smoker Used Tobacco, but Quit: Yes Month/Year Tobacco Last Used: 2014 - Caffeine Use Caffeine Use: Reports: Coffee - Recreational Drug Use Recreational Drug Use: No ED ROS GENERAL - Review of Systems Review Of Systems: ROS reveals no pertinent complaints other than HPI. ED EXAM, GENERAL - Physical Exam Exam: See Below Course - Vital Signs Last Recorded V/S: Last Vital Signs Temp 97.2 F 04/15/19 12:00 Pulse 61 04/15/19 12:00 Resp 18 04/15/19 12:00 BP 107/52 L 04/15/19 12:00 Pulse Ox 97 04/15/19 12:00 - Orders/Labs/Meds Orders: Medication Orders Acetaminophen (Tylenol) 650 mg PO Q4H PRN PRN Reason: Pain (mild 1-3) Last Admin: 04/15/19 12:22 Dose: 650 mg Admin: 04/15/19 04:21 Dose: 650 mg Albuterol/Ipratropium (Duoneb 3.0-0.5 Mg/3 Ml) 3 ml NEB Q4HRRT PRN PRN Reason: Shortness Of Breath/wheezing Diltiazem HCl (Cardizem Cd) 240 mg PO DAILY [facility] Last Admin: 04/15/19 09:28 Dose: 240 mg Folic Acid (Folic Acid) 1 mg PO BEDTIME [facility]ADEN Last Admin: 04/14/19 20:42 Dose: 1 mg Furosemide (Lasix) 40 mg IVPUSH BIDDIURETIC JADEN Last Admin: 04/15/19 08:17 Dose: 40 mg Insulin Aspart (Novolog) 0 unit SUBCUT TIDAC [facility]; Protocol Last Admin: 04/15/19 12:21 Dose: Not Given Admin: 04/15/19 07:38 Dose: Not Given Admin: 04/14/19 17:05 Dose: Not Given Lisinopril (Prinivil) 10 mg PO DAILY [facility] Last Admin: 04/15/19 08:16 Dose: 10 mg Lorazepam (Ativan) 0 mg IVPUSH Q4H PRN; Protocol PRN Reason: CIWAA Ondansetron HCl (Zofran) 4 mg IVPUSH Q4H PRN PRN Reason: Nausea Potassium Chloride (Klor-Con M20) 40 meq PO TIDMEALS [facility] Stop: 04/15/19 17:31 Last Admin: 04/15/19 12:21 Dose: 40 meq Admin: 04/15/19 08:16 Dose: 40 meq Sodium Chloride (Saline Flush) 2.5 ml FLUSH ASDIRECTED PRN PRN Reason: Keep Vein Open Thiamine HCl (Vitamin B-1) 100 mg PO BEDTIME [facility] Last Admin: 04/14/19 20:42 Dose: 100 mg Warfarin Sodium (Coumadin) 2 mg PO DAILY@1400 [facility] Last Admin: 04/14/19 14:53 Dose: 2 mg Labs: Laboratory Tests 04/14/19 04/14/19 04/14/19 Range/Units 09:45 09:45 09:45 WBC 6.98 (4.0-11.0) K/uL RBC 4.70 (4.50-5.90) M/uL Hgb 13.9 (13.0-17.0) g/dL Hct 39.7 (38.0-50.0) % MCV 84.5 (80.0-98.0) fL MCH 29.6 (27.0-32.0) pg MCHC 35.0 (31.0-37.0) g/dL RDW Std Deviation 40.0 (28.0-62.0) fl RDW Coeff of Ijeoma 13 (11.0-15.0) % Plt Count 152 (150-400) K/uL MPV 10.00 (7.40-12.00) fL Neut % (Auto) 86.1 H (48.0-80.0) % Lymph % (Auto) 8.9 L (16.0-40.0) % Gulf % (Auto) 4.0 (0.0-15.0) % Eos % (Auto) 0.7 (0.0-7.0) % Baso % (Auto) 0.3 (0.0-1.5) % Neut # (Auto) 6.0 H (1.4-5.7) K/uL Lymph # (Auto) 0.6 (0.6-2.4) K/uL Gulf # (Auto) 0.3 (0.0-0.8) K/uL Eos # (Auto) 0.1 (0.0-0.7) K/uL Baso # (Auto) 0.0 (0.0-0.1) K/uL Nucleated RBC % 0.0 /100WBC Nucleated RBCs # 0 K/uL INR Sodium 113 L* (136-148) mmol/L Potassium 3.5 (3.5-5.1) mmol/L Chloride 76 L (98-107) mmol/L Carbon Dioxide 28.4 (21.0-32.0) mmol/L BUN 6 L (7.0-18.0) mg/dL Creatinine 0.8 (0.8-1.3) mg/dL Est Cr Clr Drug Dosing TNP Estimated GFR (MDRD) > 60.0 ml/min Glucose 135 H (74-106) mg/dL Calcium 8.5 (8.5-10.1) mg/dL Magnesium (1.8-2.4) mg/dL Total Bilirubin 1.4 H (0.2-1.0) mg/dL AST 33 (15-37) IU/L ALT 19 (14-63) IU/L Alkaline Phosphatase 143 H (46-116) U/L Troponin I < 0.050 (0.000-0.056) ng/mL B-Natriuretic Peptide 1044 H (<100) PG/ML Total Protein 7.2 (6.4-8.2) g/dL Albumin 3.5 (3.4-5.0) g/dL Globulin 3.7 (2.6-4.0) g/dL Albumin/Globulin Ratio 0.9 (0.9-1.6) 04/14/19 04/14/19 Range/Units 09:45 09:45 WBC (4.0-11.0) K/uL RBC (4.50-5.90) M/uL Hgb (13.0-17.0) g/dL Hct (38.0-50.0) % MCV (80.0-98.0) fL MCH (27.0-32.0) pg MCHC (31.0-37.0) g/dL RDW Std Deviation (28.0-62.0) fl RDW Coeff of Ijeoma (11.0-15.0) % Plt Count (150-400) K/uL MPV (7.40-12.00) fL Neut % (Auto) (48.0-80.0) % Lymph % (Auto) (16.0-40.0) % Gulf % (Auto) (0.0-15.0) % Eos % (Auto) (0.0-7.0) % Baso % (Auto) (0.0-1.5) % Neut # (Auto) (1.4-5.7) K/uL Lymph # (Auto) (0.6-2.4) K/uL Gulf # (Auto) (0.0-0.8) K/uL Eos # (Auto) (0.0-0.7) K/uL Baso # (Auto) (0.0-0.1) K/uL Nucleated RBC % /100WBC Nucleated RBCs # K/uL INR 1.96 Sodium (136-148) mmol/L Potassium (3.5-5.1) mmol/L Chloride (98-107) mmol/L Carbon Dioxide (21.0-32.0) mmol/L BUN (7.0-18.0) mg/dL Creatinine (0.8-1.3) mg/dL Est Cr Clr Drug Dosing Estimated GFR (MDRD) ml/min Glucose (74-106) mg/dL Calcium (8.5-10.1) mg/dL Magnesium 1.3 L (1.8-2.4) mg/dL Total Bilirubin (0.2-1.0) mg/dL AST (15-37) IU/L ALT (14-63) IU/L Alkaline Phosphatase (46-116) U/L Troponin I (0.000-0.056) ng/mL B-Natriuretic Peptide (<100) PG/ML Total Protein (6.4-8.2) g/dL Albumin (3.4-5.0) g/dL Globulin (2.6-4.0) g/dL Albumin/Globulin Ratio (0.9-1.6) Meds: Medications Generic Name Dose Route Start Last Admin Trade Name Freq PRN Reason Stop Dose Admin Acetaminophen 650 mg 04/14/19 12:04 04/15/19 12:22 Tylenol PO 650 mg Q4H PRN Administration Pain (mild 1-3) Albuterol/Ipratropium 3 ml 04/14/19 12:04 Duoneb 3.0-0.5 Mg/3 Ml NEB Q4HRRT PRN Shortness Of Breath/wheezing Diltiazem HCl 240 mg 04/15/19 09:00 04/15/19 09:28 Cardizem Cd PO 240 mg DAILY JADEN Administration Folic Acid 1 mg 04/14/19 21:00 04/14/19 20:42 Folic Acid PO 1 mg BEDTIME JADEN Administration Furosemide 40 mg 04/15/19 08:00 04/15/19 08:17 Lasix IVPUSH 40 mg BIDDIURETIC JADEN Administration Insulin Aspart 0 unit 04/14/19 17:00 04/15/19 12:21 Novolog SUBCUT Not Given TIDAC JADEN Protocol Lisinopril 10 mg 04/15/19 09:00 04/15/19 08:16 Prinivil PO 10 mg DAILY JADEN Administration Lorazepam 0 mg 04/14/19 12:20 Ativan IVPUSH Q4H PRN CIWAA Protocol Ondansetron HCl 4 mg 04/14/19 12:04 Zofran IVPUSH Q4H PRN Nausea Potassium Chloride 40 meq 04/15/19 08:00 04/15/19 12:21 Klor-Con M20 PO 04/15/19 17:31 40 meq TIDMEALS JADEN Administration Sodium Chloride 2.5 ml 04/14/19 09:42 Saline Flush FLUSH ASDIRECTED PRN Keep Vein Open Thiamine HCl 100 mg 04/14/19 21:00 04/14/19 20:42 Vitamin B-1 PO 100 mg BEDTIME JADEN Administration Warfarin Sodium 2 mg 04/14/19 14:00 04/14/19 14:53 Coumadin PO 2 mg DAILY@1400 JADEN Administration Discontinued Medications Generic Name Dose Route Start Last Admin Trade Name Freq PRN Reason Stop Dose Admin Furosemide 40 mg 04/14/19 10:48 04/14/19 10:57 Lasix IVPUSH 04/14/19 10:49 40 mg NOW ONE Administration Furosemide 40 mg 04/14/19 17:00 04/14/19 17:09 Lasix IVPUSH 04/14/19 17:01 40 mg NOW ONE Administration Sodium Chloride 1,000 mls @ 75 mls/hr 04/14/19 11:00 04/14/19 11:01 Normal Saline IV 75 mls/hr ASDIRECTED JADEN Administration Magnesium Sulfate 4 gm/ Premix 100 mls @ 33.333 mls/hr 04/14/19 12:23 13:18 IV 04/14/19 15:22 33.333 mls/hr ONETIME ONE Administration Magnesium Sulfate 2 gm/ Premix 50 mls @ 50 mls/hr 04/15/19 07:54 04/15/19 08: 17 IV 04/15/19 08:53 50 mls/hr ONETIME ONE Administration Influenza Virus Vaccine 1 each 04/14/19 12:36 Pharmacy To Dose - Influenza Vaccine IM 04/14/19 12:37 ONETIME ONE Influenza Virus Vaccine 60 mcg 04/14/19 13:00 04/14/19 15:09 Fluzone Quad [id number] Syringe IM 04/14/19 13:01 60 mcg .ONCE ONE Administration Diltiazem 240 Mg 1 each 04/15/19 09:00 PO DAILY JADEN Potassium Chloride 40 meq 04/14/19 12:30 04/14/19 17:07 Klor-Con M20 PO 04/14/19 17:01 40 meq BID@1230,1700 JADEN Administration Sodium Chloride 10 ml 04/14/19 09:42 Saline Flush FLUSH ASDIRECTED PRN Keep Vein Open Sodium Chloride 2.5 ml 04/14/19 09:42 Saline Flush FLUSH ASDIRECTED PRN Keep Vein Open Warfarin Sodium 1 each 04/14/19 12:11 04/14/19 12:53 Coumadin Ask PO 04/14/19 12:12 Not Given ONETIME ONE Warfarin Sodium 2 mg 04/14/19 15:12 04/14/19 15:45 Coumadin PO 04/14/19 15:13 2 mg ONETIME ONE Administration Departure - Departure Time of Disposition: 11:00 Disposition: Admitted As Inpatient 66 Clinical Impression: CHF exacerbation - Discharge Information *PRESCRIPTION DRUG MONITORING PROGRAM REVIEWED*: Not Applicable *COPY OF PRESCRIPTION DRUG MONITORING REPORT IN PATIENT KAIDEN: Not Applicable
--- NOTE | 2019-04-14 10:27 | CR ---
INDICATION: Dyspnea. TECHNIQUE: AP portable chest. COMPARISON: December 05, 2018. FINDINGS: Right lower lobe infiltrate or atelectasis with a right pleural effusion. This involves the right middle lobe as well. Left lung is clear. Cardiac enlargement. IMPRESSION: Infiltrates or atelectasis right middle and right lower lobe with a small right pleural effusion. Dictated by Yordan Terrazas MD @ Apr 14 2019 10:24AM Signed by Dr. Yordan Terrazas @ Apr 14 2019 10:24AM
[2019-04-14 10:35] LABS: BLOOD UREA NITROGEN,BUN 6 mg/dL (7.0-18.0); CARBON DIOXIDE,CO2 28.4 mmol/L (21.0-32.0); CHLORIDE,CL 76 mmol/L (98-107); GLUCOSE RANDOM 135 mg/dL (74-106); POTASSIUM,K 3.5 mmol/L (3.5-5.1)
[2019-04-14 10:39] LABS: SODIUM,NA 113 mmol/L (136-148)
[2019-04-14] MEDS ORDERED: Furosemide 40 MG/4 ML VIAL IVPUSH ONE ×2 (10:48→17:00)
[2019-04-14] MEDS ORDERED: Sodium Chloride 0.9% 1,000 ML IV SCH (11:00)
--- NOTE | 2019-04-14 12:03 | PCM.HP.2 ---
H&P History of Present Illness - General Date of Service: 04/14/19 Admit Problem/Dx: Admission Diagnosis/Problem Admission Diagnosis/Problem CHF, Congestive heart failure Source of Information: Patient, Family (luis alberto Nice at bedside) History Limitations: Reports: No Limitations - History of Present Illness Initial Comments - Free Text/Narative: This 63 year old male, appearing older than stated age, with pmh of a fib, HTN and CHF presented today from Dr Araiza's clinic with concerns of shortness of breath and worsening edema. He reports that for the last month he has noticed increase in swelling, but over the last week it has progressively worsened. He reports ambulating causes extreme shortness of breath and he has pain to his legs from all the swelling. He reports orthopnea as well as paroxysmal nocturnal dyspnea, reporting it is hard for his to sleep due to shortness of breath. he denies chest pain. Denies fevers, chills or cough. He reports taking Lasix 20 mg daily. Not very complaint with low sodium diet. He is unsure of dry weight. He reports no home oxygen. He reports alcohol use, at least 10 beers a day, no tobacco use and no recreational drug use. He denies alcohol withdrawal or history of seizures. In the ED CBC WNL. Hyponatremia noted at 113, K+3.5, Cl 76, bili ortega 1.4, BNP 1044. CXR revealed infiltrates or atelectasis in right middle and right lower lobe with small right pleural effusion. BP 145/70s, noted to be hypoxic on RA upon arrival in [facility] 70s. Tachypnea, 26 RR. He was treated with Lasix 40 mg IV and oxygen therapy. He will be admitted for acute hypoxic respiratory failure and acute CHF exacerbation. PCP, Dr Araiza. bilat lower legs Pain Score (Numeric/FACES): 5 - Related Data Allergies/Adverse Reactions: Allergies Allergy/AdvReac Type Severity Reaction Status Date / Time No Known Allergies Allergy Verified 04/14/19 12:12 Home Medications: Home Meds Diltiazem HCl [Dilt-Xr] 240 mg PO DAILY 10/31/16 [History] Lisinopril 10 mg PO DAILY 12/03/18 [History] Naproxen Sodium 220 mg PO . NEEDED PRN 12/03/18 [History] Sildenafil [Revatio] 60 mg PO DAILY PRN 12/03/18 [History] Warfarin [Coumadin] 2 mg PO DAILY 12/03/18 [History] metFORMIN [Glucophage XR] 1,000 mg PO .WITH EVENING MEAL 12/03/18 [History] Furosemide [Lasix] 80 mg PO DAILY 04/14/19 [History] Past Medical History - Past Health History Medical/Surgical History: Denies Medical/Surgical History Other HEENT History: wears glasses, has upper and lower dentures but doesn't wear them. Patient reports he gets bleeding behind his right eye Cardiovascular History: Reports: Afib, Heart Failure, Hypertension. Denies: Stents Respiratory History: Reports: Other (See Below) (last admission he was sent home on oxygen, but denies using now.) Gastrointestinal History: Reports: Colon Polyp. Denies: GI Bleed Genitourinary History: Denies: Chronic Renal Insuffiency Musculoskeletal History: Reports: Fracture, Gout Other Musculoskeletal History: hx of fx toe Neurological History: Reports: None. Denies: CVA, TIA Psychiatric History: Reports: None Endocrine/Metabolic History: Reports: Diabetes, Type II, Obesity/BMI 30+ Hematologic History: Reports: Anticoagulation Therapy Immunologic History: Reports: None Oncologic (Cancer) History: Reports: None Dermatologic History: Reports: None Other Dermatologic History: scabs on shoulders, - Past Surgical History Head Surgeries/Procedures: Reports: None Cardiovascular Surgical History: Reports: None GI Surgical History: Reports: Cholecystectomy Male Surgical History: Reports: None Musculoskeletal Surgical History: Reports: Shoulder Surgery Social & Family History - Tobacco Use Smoking Status *Q: Former Smoker Used Tobacco, but Quit: Yes Month/Year Tobacco Last Used: 2014 - Caffeine Use Caffeine Use: Reports: Coffee - Alcohol Use Alcohol Use History: Yes Days Per Week of Alcohol Use: 7 Number of Drinks Per Day: 10 Total Drinks Per Week: 70 Alcohol Use Frequency: Daily - Recreational Drug Use Recreational Drug Use: No - Living Situation & Occupation Living situation: Reports: Occupation: Retired H&P Review of Systems - Review of Systems: Review Of Systems: See Below General: Reports: Weakness, Fatigue. Denies: Fever, Chills, Malaise HEENT: Denies: Headaches, Sinus Congestion, Sore Throat, Visual Changes Pulmonary: Reports: No Symptoms. Denies: Shortness of Breath, Sputum Cardiovascular: Reports: Dyspnea on Exertion, Orthopnea, Edema. Denies: Chest Pain, Palpitations Gastrointestinal: Reports: No Symptoms. Denies: Abdominal Pain, Black Stool, Bloody Stool, Decreased Appetite, Nausea, Vomiting Genitourinary: Reports: No Symptoms. Denies: Dysuria, Frequency, Burning Musculoskeletal: Reports: No Symptoms Skin: Reports: Other (edema and tight skin to lower extremities) Neurological: Reports: No Symptoms Hematologic/Lymphatic: Reports: No Symptoms Immunologic: Reports: No Symptoms Exam - Exam Exam: See Below - Vital Signs Vital Signs: Last Vital Signs Temp 96.8 F 04/14/19 09:31 Pulse 64 04/14/19 09:31 Resp 26 H 04/14/19 09:31 BP 145/77 H 04/14/19 09:31 Pulse Ox 79 L 04/14/19 09:31 - Exam General: Alert, Oriented, Cooperative HEENT: Conjunctiva Clear, Mucosa Moist & Webb, Pupils Equal, Pupils Reactive Neck: Supple, JVD Lungs: Decreased Breath Sounds, Crackles Cardiovascular: Regular Rate, Irregular Rhythm GI/Abdominal Exam: Normal Bowel Sounds, Soft, Non-Tender, Other (anasarca noted) Extremities: Normal Range of Motion, Pedal Edema (+3 pitting edema, legs appear loyd in color, warm to touch, shiny skin.) Peripheral Pulses: 1+: Posterior Tibial (L), Posterior Tibial (R), Dorsalis Pedis (L), Dorsalis Pedis (R) Skin: Warm, Dry, Intact Neuro Extensive - Mental Status: Alert, Oriented x3 Neuro Extensive - Motor, Sensory, Reflexes: CN II-XII Intact Psychiatric: Alert, Normal Affect, Normal Mood - Patient Data Lab Results Last 24 hrs: Laboratory Results - last 24 hr 04/14/19 04/14/19 04/14/19 Range/Units 09:45 09:45 09:45 WBC 6.98 (4.0-11.0) K/uL RBC 4.70 (4.50-5.90) M/uL Hgb 13.9 (13.0-17.0) g/dL Hct 39.7 (38.0-50.0) % MCV 84.5 (80.0-98.0) fL MCH 29.6 (27.0-32.0) pg MCHC 35.0 (31.0-37.0) g/dL RDW Std Deviation 40.0 (28.0-62.0) fl RDW Coeff of Ije[place] 13 (11.0-15.0) % Plt Count 152 (150-400) K/uL MPV 10.00 (7.40-12.00) fL Neut % (Auto) 86.1 H (48.0-80.0) % Lymph % (Auto) 8.9 L (16.0-40.0) % [place] % (Auto) 4.0 (0.0-15.0) % Eos % (Auto) 0.7 (0.0-7.0) % Baso % (Auto) 0.3 (0.0-1.5) % Neut # (Auto) 6.0 H (1.4-5.7) K/uL Lymph # (Auto) 0.6 (0.6-2.4) K/uL [place] # (Auto) 0.3 (0.0-0.8) K/uL Eos # (Auto) 0.1 (0.0-0.7) K/uL Baso # (Auto) 0.0 (0.0-0.1) K/uL Nucleated RBC % 0.0 /100WBC Nucleated RBCs # 0 K/uL INR Sodium 113 L* (136-148) mmol/L Potassium 3.5 (3.5-5.1) mmol/L Chloride 76 L (98-107) mmol/L Carbon Dioxide 28.4 (21.0-32.0) mmol/L BUN 6 L (7.0-18.0) mg/dL Creatinine 0.8 (0.8-1.3) mg/dL Est Cr Clr Drug Dosing TNP Estimated GFR (MDRD) > 60.0 ml/min Glucose 135 H (74-106) mg/dL Calcium 8.5 (8.5-10.1) mg/dL Total Bilirubin 1.4 H (0.2-1.0) mg/dL AST 33 (15-37) IU/L ALT 19 (14-63) IU/L Alkaline Phosphatase 143 H (46-116) U/L Troponin I < 0.050 (0.000-0.056) ng/mL B-Natriuretic Peptide 1044 H (<100) PG/ML Total Protein 7.2 (6.4-8.2) g/dL Albumin 3.5 (3.4-5.0) g/dL Globulin 3.7 (2.6-4.0) g/dL Albumin/Globulin Ratio 0.9 (0.9-1.6) 04/14/19 Range/Units 09:45 WBC (4.0-11.0) K/uL RBC (4.50-5.90) M/uL Hgb (13.0-17.0) g/dL Hct (38.0-50.0) % MCV (80.0-98.0) fL MCH (27.0-32.0) pg MCHC (31.0-37.0) g/dL RDW Std Deviation (28.0-62.0) fl RDW Coeff of Ije[place] (11.0-15.0) % Plt Count (150-400) K/uL MPV (7.40-12.00) fL Neut % (Auto) (48.0-80.0) % Lymph % (Auto) (16.0-40.0) % [place] % (Auto) (0.0-15.0) % Eos % (Auto) (0.0-7.0) % Baso % (Auto) (0.0-1.5) % Neut # (Auto) (1.4-5.7) K/uL Lymph # (Auto) (0.6-2.4) K/uL [place] # (Auto) (0.0-0.8) K/uL Eos # (Auto) (0.0-0.7) K/uL Baso # (Auto) (0.0-0.1) K/uL Nucleated RBC % /100WBC Nucleated RBCs # K/uL INR 1.96 Sodium (136-148) mmol/L Potassium (3.5-5.1) mmol/L Chloride (98-107) mmol/L Carbon Dioxide (21.0-32.0) mmol/L BUN (7.0-18.0) mg/dL Creatinine (0.8-1.3) mg/dL Est Cr Clr Drug Dosing Estimated GFR (MDRD) ml/min Glucose (74-106) mg/dL Calcium (8.5-10.1) mg/dL Total Bilirubin (0.2-1.0) mg/dL AST (15-37) IU/L ALT (14-63) IU/L Alkaline Phosphatase (46-116) U/L Troponin I (0.000-0.056) ng/mL B-Natriuretic Peptide (<100) PG/ML Total Protein (6.4-8.2) g/dL Albumin (3.4-5.0) g/dL Globulin (2.6-4.0) g/dL Albumin/Globulin Ratio (0.9-1.6) Result Diagrams: 04/14/19 09:45 04/14/19 09:45 - Problem List (1) Acute respiratory failure with hypoxia SNOMED Code(s): 47985453, 679514011 ICD Code: J96.01 - ACUTE RESPIRATORY FAILURE WITH HYPOXIA Status: Acute Current Visit: Yes (2) CHF exacerbation SNOMED Code(s): 073145613, 97775252181753 ICD Code: I50.9 - HEART FAILURE, UNSPECIFIED Status: Acute Current Visit : Yes (3) Hyponatremia SNOMED Code(s): 61400796 ICD Code: E87.1 - HYPO-OSMOLALITY AND HYPONATREMIA Status: Acute Current Visit: No (4) Hypomagnesemia SNOMED Code(s): 829346008 ICD Code: E83.42 - HYPOMAGNESEMIA Status: Acute Current Visit: Yes (5) Pulmonary hypertension SNOMED Code(s): 05652998 ICD Code: I27.20 - PULMONARY HYPERTENSION, UNSPECIFIED Status: Chronic Current Visit: Yes (6) Alcohol abuse SNOMED Code(s): 93806983 ICD Code: F10.10 - ALCOHOL ABUSE, UNCOMPLICATED Status: Chronic Current Visit: Yes (7) Atrial fibrillation SNOMED Code(s): 91430403 ICD Code: I48.91 - UNSPECIFIED ATRIAL FIBRILLATION Status: Chronic Current Visit: Yes (8) Chronic anticoagulation SNOMED Code(s): 461546297 ICD Code: Z79.01 - MCFP (CURRENT) USE OF ANTICOAGULANTS Status: Chronic Current Visit: Yes (9) HTN (hypertension) SNOMED Code(s): 13416138 ICD Code: I10 - ESSENTIAL (PRIMARY) HYPERTENSION Status: Chronic Current Visit: Yes Problem List Initiated/Reviewed/Updated: Yes Orders Last 24hrs: Active Orders 24 hr Category Date Time Status Patient Status [ADT] Stat ADT 04/14/19 11:31 Active EKG 12 Lead [EKG Documentation Completion] [RC] STAT Care 04/14/19 09:40 Active Intake and Output Strict [RC] ASDIRECTED Care 04/14/19 11:32 Active Oxygen Therapy [RC] ASDIRECTED Care 04/14/19 09:42 Active Pulse Oximetry [RC] ASDIRECTED Care 04/14/19 09:42 Active MAGNESIUM [CHEM] Routine Lab 04/14/19 09:45 Received Sodium Chloride 0.9% [Normal Saline] 1,000 ml Med 04/14/19 11:00 Active IV ASDIRECTED Sodium Chloride 0.9% [Saline Flush] Med 04/14/19 09:42 Active 10 ml FLUSH ASDIRECTED PRN Sodium Chloride 0.9% [Saline Flush] Med 04/14/19 09:42 Active 2.5 ml FLUSH ASDIRECTED PRN Sodium Chloride 0.9% [Saline Flush] Med 04/14/19 09:42 Active 2.5 ml FLUSH ASDIRECTED PRN Saline Lock Insert [OM.PC] Stat Oth 04/14/19 09:42 Ordered Medication Orders Sodium Chloride (Normal Saline) 1,000 mls @ 75 mls/hr IV ASDIRECTED JADEN Last Admin: 04/14/19 11:01 Dose: 75 mls/hr Sodium Chloride (Saline Flush) 2.5 ml FLUSH ASDIRECTED PRN PRN Reason: Keep Vein Open Sodium Chloride (Saline Flush) 10 ml FLUSH ASDIRECTED PRN PRN Reason: Keep Vein Open Sodium Chloride (Saline Flush) 2.5 ml FLUSH ASDIRECTED PRN PRN Reason: Keep Vein Open Assessment/Plan Comment:: This 63 year old male admitted with acute hypoxic respiratory failure and acute on chronic CHF exacerbation 1. Acute hypoxic respiratory failure: Improved with oxygen therapy in the ED as well as Lasix. Continue for now, wean as possible. Keep sats 90%. 2. Acute on Chronic CHF exacerbation: Continue IV Lasix for diuresis. Will continue this BID for now. Strict I/O, Low Na diet, Daily weights. 1.5 L FR. Repeat ECHO. Obtain venous doppler of bilateral legs to rule out DVT. 3. Hyponatremia: Likely multifactorial, CHF and alcohol abuse. Asymptomatic. monitor closely with diuresis. Continue fluid restriction. 4. Afib: Chronic, Continue Diltiazem for now. Monitor on telemetry. Continue Coumadin. INR 1.96. 5. HTN: Stable currently, monitor with diuresis. Continue Lisinopril. 6. Alcohol abuse: CIWAA protocol with Ativan PRN. Supplement with Thiamine and folic acid. 7. DM Type 2: Hold Metformin during hospitalization. BS checks with meals and Novolog SSI VTE prophylaxis: Coumadin Dispo: 3 days - Mortality Measure Prognosis:: Good
[2019-04-14] MEDS ORDERED: Albuterol/Ipratropium 3.0-0.5 MG/3 ML Neb Soln NEB PRN (12:04)
[2019-04-14] MEDS ORDERED: Ondansetron 4 MG/2 ML SDV IVPUSH PRN (12:04)
[2019-04-14] MEDS ORDERED: LORazepam 2 MG/ML SDV IVPUSH PRN (12:20)
[2019-04-14] MEDS ORDERED: Magnesium Sulfate/Water 4 GM in Premix Bag 1 BAG IV ONE (12:23)
[2019-04-14] MEDS ORDERED: FLU Vacc QS2019-20(6MOS+)/PF 60 MCG/0.5 ML SYRINGE IM ONE (13:00)
[2019-04-14] MEDS: Potassium Chloride 20 MEQ Tab.ER PO SCH ×2 (13:18→17:07)
--- NOTE | 2019-04-14 13:46 | US ---
Bilateral lower extremity deep venous ultrasound: Duplex and color flow imaging was obtained of the right and left common femoral, superficial femoral, popliteal, posterior tibial veins on both sides. Findings: Images are less than optimal with technologist notes stating patient' s breathing is not stable with deep breathing and difficulty breathing. Incomplete flow is noted within both popliteal veins. No color flow is seen within the posterior tibial veins. Findings are suspicious but not conclusive for bilateral lower extremity deep venous thrombosis. No evidence of venous thrombosis above the popliteal veins. Impression: Possible but not definite deep venous thrombosis within both popliteal veins with possible extension into the posterior tibial veins. Diagnostic code #3 MTDD
[2019-04-14] MEDS: Warfarin 2 MG Tab PO SCH (14:53)
[2019-04-14] MEDS ORDERED: Warfarin 2 MG Tab PO ONE (15:12)
[2019-04-14 15:21] LABS: BLOOD UREA NITROGEN,BUN 8 mg/dL (7.0-18.0); CARBON DIOXIDE,CO2 30.3 mmol/L (21.0-32.0); CHLORIDE,CL 79 mmol/L (98-107); GLUCOSE RANDOM 124 mg/dL (74-106); POTASSIUM,K 3.5 mmol/L (3.5-5.1)
[2019-04-14 15:23] LABS: SODIUM,NA 116 mmol/L (136-148)
[2019-04-14] MEDS: Insulin Aspart 100 Units/ML 3 ML Pen SUBCUT SCH (17:05)
[2019-04-14] MEDS: Folic Acid 1 MG Tab PO SCH (20:42)
[2019-04-14] MEDS: Thiamine 100 MG Tab PO SCH (20:42)
[2019-04-14 23:43] LABS: BLOOD UREA NITROGEN,BUN 8 mg/dL (7.0-18.0); CARBON DIOXIDE,CO2 30.7 mmol/L (21.0-32.0); CHLORIDE,CL 86 mmol/L (98-107); GLUCOSE RANDOM 113 mg/dL (74-106); POTASSIUM,K 3.7 mmol/L (3.5-5.1); SODIUM,NA 122 mmol/L (136-148)
[2019-04-15] MEDS: Acetaminophen 325 MG Tab PO PRN ×3 (04:21→19:45)
[2019-04-15] MEDS: Insulin Aspart 100 Units/ML 3 ML Pen SUBCUT SCH ×3 (07:38→16:21)
[2019-04-15] MEDS ORDERED: Magnesium Sulfate/Water 2 GM in Premix Bag 1 BAG IV ONE (07:54)
--- NOTE | 2019-04-15 07:55 | PCM.PN ---
- General Info Date of Service: 04/15/19 Admission Dx/Problem (Free Text): Admission Diagnosis/Problem Admission Diagnosis/Problem CHF, Congestive heart failure Subjective Update: Reports feeling better today, breathing has improved. No chest pain, feels edema to legs is better as well. Functional Status: Reports: Pain Controlled, Tolerating Diet, Ambulating, Urinating - Review of Systems General: Reports: No Symptoms. Denies: Weakness, Fatigue HEENT: Reports: No Symptoms. Denies: Headaches, Sore Throat, Visual Changes Pulmonary: Reports: Shortness of Breath (improving), Cough. Denies: Hemoptysis (no further hemoptysis since scant amount on admission) Cardiovascular: Reports: Dyspnea on Exertion, Orthopnea, Edema. Denies: Chest Pain Gastrointestinal: Reports: No Symptoms. Denies: Abdominal Pain, Nausea, Vomiting Musculoskeletal: Reports: No Symptoms. Denies: Neck Pain Neurological: Reports: No Symptoms Psychiatric: Reports: No Symptoms - Patient Data Vitals - Most Recent: Last Vital Signs Temp 97.3 F 04/15/19 07:37 Pulse 65 04/15/19 07:37 Resp 18 04/15/19 07:37 BP 125/62 04/15/19 07:37 Pulse Ox 95 04/15/19 07:37 Weight - Most Recent: 91.626 kg I&O - Last 24 Hours: Intake & Output 04/14/19 04/15/19 04/15/19 22:59 06:59 14:59 Intake Total 150 650 Output Total 525 1525 Balance -375 -875 Lab Results Last 24 Hours: Laboratory Results - last 24 hr 04/14/19 04/14/19 04/14/19 Range/Units 09:45 09:45 09:45 WBC 6.98 (4.0-11.0) K/uL RBC 4.70 (4.50-5.90) M/uL Hgb 13.9 (13.0-17.0) g/dL Hct 39.7 (38.0-50.0) % MCV 84.5 (80.0-98.0) fL MCH 29.6 (27.0-32.0) pg MCHC 35.0 (31.0-37.0) g/dL RDW Std Deviation 40.0 (28.0-62.0) fl RDW Coeff of Ijeoma 13 (11.0-15.0) % Plt Count 152 (150-400) K/uL MPV 10.00 (7.40-12.00) fL Neut % (Auto) 86.1 H (48.0-80.0) % Lymph % (Auto) 8.9 L (16.0-40.0) % [place] % (Auto) 4.0 (0.0-15.0) % Eos % (Auto) 0.7 (0.0-7.0) % Baso % (Auto) 0.3 (0.0-1.5) % Neut # (Auto) 6.0 H (1.4-5.7) K/uL Lymph # (Auto) 0.6 (0.6-2.4) K/uL [place] # (Auto) 0.3 (0.0-0.8) K/uL Eos # (Auto) 0.1 (0.0-0.7) K/uL Baso # (Auto) 0.0 (0.0-0.1) K/uL Nucleated RBC % 0.0 /100WBC Nucleated RBCs # 0 K/uL INR Sodium 113 L* (136-148) mmol/L Potassium 3.5 (3.5-5.1) mmol/L Chloride 76 L (98-107) mmol/L Carbon Dioxide 28.4 (21.0-32.0) mmol/L BUN 6 L (7.0-18.0) mg/dL Creatinine 0.8 (0.8-1.3) mg/dL Est Cr Clr Drug Dosing TNP Estimated GFR (MDRD) > 60.0 ml/min Glucose 135 H (74-106) mg/dL POC Glucose (60-110) mg/dL Calcium 8.5 (8.5-10.1) mg/dL Magnesium (1.8-2.4) mg/dL Total Bilirubin 1.4 H (0.2-1.0) mg/dL AST 33 (15-37) IU/L ALT 19 (14-63) IU/L Alkaline Phosphatase 143 H (46-116) U/L Troponin I < 0.050 (0.000-0.056) ng/mL B-Natriuretic Peptide 1044 H (<100) PG/ML Total Protein 7.2 (6.4-8.2) g/dL Albumin 3.5 (3.4-5.0) g/dL Globulin 3.7 (2.6-4.0) g/dL Albumin/Globulin Ratio 0.9 (0.9-1.6) 04/14/19 04/14/19 04/14/19 Range/Units 09:45 09:45 15:01 WBC (4.0-11.0) K/uL RBC (4.50-5.90) M/uL Hgb (13.0-17.0) g/dL Hct (38.0-50.0) % MCV (80.0-98.0) fL MCH (27.0-32.0) pg MCHC (31.0-37.0) g/dL RDW Std Deviation (28.0-62.0) fl RDW Coeff of [place] (11.0-15.0) % Plt Count (150-400) K/uL MPV (7.40-12.00) fL Neut % (Auto) (48.0-80.0) % Lymph % (Auto) (16.0-40.0) % [place] % (Auto) (0.0-15.0) % Eos % (Auto) (0.0-7.0) % Baso % (Auto) (0.0-1.5) % Neut # (Auto) (1.4-5.7) K/uL Lymph # (Auto) (0.6-2.4) K/uL [place] # (Auto) (0.0-0.8) K/uL Eos # (Auto) (0.0-0.7) K/uL Baso # (Auto) (0.0-0.1) K/uL Nucleated RBC % /100WBC Nucleated RBCs # K/uL INR 1.96 Sodium 116 L* (136-148) mmol/L Potassium 3.5 (3.5-5.1) mmol/L Chloride 79 L (98-107) mmol/L Carbon Dioxide 30.3 (21.0-32.0) mmol/L BUN 8 (7.0-18.0) mg/dL Creatinine 0.7 L (0.8-1.3) mg/dL Est Cr Clr Drug Dosing 104.50 Estimated GFR (MDRD) > 60.0 ml/min Glucose 124 H (74-106) mg/dL POC Glucose (60-110) mg/dL Calcium 8.6 (8.5-10.1) mg/dL Magnesium 1.3 L (1.8-2.4) mg/dL Total Bilirubin (0.2-1.0) mg/dL AST (15-37) IU/L ALT (14-63) IU/L Alkaline Phosphatase (46-116) U/L Troponin I (0.000-0.056) ng/mL B-Natriuretic Peptide (<100) PG/ML Total Protein (6.4-8.2) g/dL Albumin (3.4-5.0) g/dL Globulin (2.6-4.0) g/dL Albumin/Globulin Ratio (0.9-1.6) 04/14/19 04/14/19 04/14/19 Range/Units 16:56 21:10 23:20 WBC (4.0-11.0) K/uL RBC (4.50-5.90) M/uL Hgb (13.0-17.0) g/dL Hct (38.0-50.0) % MCV (80.0-98.0) fL MCH (27.0-32.0) pg MCHC (31.0-37.0) g/dL RDW Std Deviation (28.0-62.0) fl RDW Coeff of Ije[place] (11.0-15.0) % Plt Count (150-400) K/uL MPV (7.40-12.00) fL Neut % (Auto) (48.0-80.0) % Lymph % (Auto) (16.0-40.0) % [place] % (Auto) (0.0-15.0) % Eos % (Auto) (0.0-7.0) % Baso % (Auto) (0.0-1.5) % Neut # (Auto) (1.4-5.7) K/uL Lymph # (Auto) (0.6-2.4) K/uL [place] # (Auto) (0.0-0.8) K/uL Eos # (Auto) (0.0-0.7) K/uL Baso # (Auto) (0.0-0.1) K/uL Nucleated RBC % /100WBC Nucleated RBCs # K/uL INR Sodium 122 L (136-148) mmol/L Potassium 3.7 (3.5-5.1) mmol/L Chloride 86 L (98-107) mmol/L Carbon Dioxide 30.7 (21.0-32.0) mmol/L BUN 8 (7.0-18.0) mg/dL Creatinine 0.7 L (0.8-1.3) mg/dL Est Cr Clr Drug Dosing 104.50 Estimated GFR (MDRD) > 60.0 ml/min Glucose 113 H (74-106) mg/dL POC Glucose 98 95 (60-110) mg/dL Calcium 8.3 L (8.5-10.1) mg/dL Magnesium (1.8-2.4) mg/dL Total Bilirubin (0.2-1.0) mg/dL AST (15-37) IU/L ALT (14-63) IU/L Alkaline Phosphatase (46-116) U/L Troponin I (0.000-0.056) ng/mL B-Natriuretic Peptide (<100) PG/ML Total Protein (6.4-8.2) g/dL Albumin (3.4-5.0) g/dL Globulin (2.6-4.0) g/dL Albumin/Globulin Ratio (0.9-1.6) 04/15/19 04/15/19 04/15/19 Range/Units 05:36 05:36 05:36 WBC 6.89 (4.0-11.0) K/uL RBC 4.49 L (4.50-5.90) M/uL Hgb 13.3 (13.0-17.0) g/dL Hct 38.8 (38.0-50.0) % MCV 86.4 (80.0-98.0) fL MCH 29.6 (27.0-32.0) pg MCHC 34.3 (31.0-37.0) g/dL RDW Std Deviation 42.2 (28.0-62.0) fl RDW Coeff of [place] 13 (11.0-15.0) % Plt Count 137 L (150-400) K/uL MPV 10.80 (7.40-12.00) fL Neut % (Auto) 81.7 H (48.0-80.0) % Lymph % (Auto) 7.5 L (16.0-40.0) % [place] % (Auto) 9.0 (0.0-15.0) % Eos % (Auto) 1.5 (0.0-7.0) % Baso % (Auto) 0.3 (0.0-1.5) % Neut # (Auto) 5.6 (1.4-5.7) K/uL Lymph # (Auto) 0.5 L (0.6-2.4) K/uL [place] # (Auto) 0.6 (0.0-0.8) K/uL Eos # (Auto) 0.1 (0.0-0.7) K/uL Baso # (Auto) 0.0 (0.0-0.1) K/uL Nucleated RBC % 0.0 /100WBC Nucleated RBCs # 0 K/uL INR 1.82 Sodium (136-148) mmol/L Potassium (3.5-5.1) mmol/L Chloride (98-107) mmol/L Carbon Dioxide (21.0-32.0) mmol/L BUN (7.0-18.0) mg/dL Creatinine (0.8-1.3) mg/dL Est Cr Clr Drug Dosing Estimated GFR (MDRD) ml/min Glucose (74-106) mg/dL POC Glucose (60-110) mg/dL Calcium (8.5-10.1) mg/dL Magnesium 1.7 L (1.8-2.4) mg/dL Total Bilirubin (0.2-1.0) mg/dL AST (15-37) IU/L ALT (14-63) IU/L Alkaline Phosphatase (46-116) U/L Troponin I (0.000-0.056) ng/mL B-Natriuretic Peptide (<100) PG/ML Total Protein (6.4-8.2) g/dL Albumin (3.4-5.0) g/dL Globulin (2.6-4.0) g/dL Albumin/Globulin Ratio (0.9-1.6) 04/15/19 Range/Units 06:16 WBC (4.0-11.0) K/uL RBC (4.50-5.90) M/uL Hgb (13.0-17.0) g/dL Hct (38.0-50.0) % MCV (80.0-98.0) fL MCH (27.0-32.0) pg MCHC (31.0-37.0) g/dL RDW Std Deviation (28.0-62.0) fl RDW Coeff of [place] (11.0-15.0) % Plt Count (150-400) K/uL MPV (7.40-12.00) fL Neut % (Auto) (48.0-80.0) % Lymph % (Auto) (16.0-40.0) % [place] % (Auto) (0.0-15.0) % Eos % (Auto) (0.0-7.0) % Baso % (Auto) (0.0-1.5) % Neut # (Auto) (1.4-5.7) K/uL Lymph # (Auto) (0.6-2.4) K/uL [place] # (Auto) (0.0-0.8) K/uL Eos # (Auto) (0.0-0.7) K/uL Baso # (Auto) (0.0-0.1) K/uL Nucleated RBC % /100WBC Nucleated RBCs # K/uL INR Sodium (136-148) mmol/L Potassium (3.5-5.1) mmol/L Chloride (98-107) mmol/L Carbon Dioxide (21.0-32.0) mmol/L BUN (7.0-18.0) mg/dL Creatinine (0.8-1.3) mg/dL Est Cr Clr Drug Dosing Estimated GFR (MDRD) ml/min Glucose (74-106) mg/dL POC Glucose 110 (60-110) mg/dL Calcium (8.5-10.1) mg/dL Magnesium (1.8-2.4) mg/dL Total Bilirubin (0.2-1.0) mg/dL AST (15-37) IU/L ALT (14-63) IU/L Alkaline Phosphatase (46-116) U/L Troponin I (0.000-0.056) ng/mL B-Natriuretic Peptide (<100) PG/ML Total Protein (6.4-8.2) g/dL Albumin (3.4-5.0) g/dL Globulin (2.6-4.0) g/dL Albumin/Globulin Ratio (0.9-1.6) Med Orders - Current: Current Medications Acetaminophen (Tylenol) 650 mg PO Q4H PRN PRN Reason: Pain (mild 1-3) Last Admin: 04/15/19 04:21 Dose: 650 mg Albuterol/Ipratropium (Duoneb 3.0-0.5 Mg/3 Ml) 3 ml NEB Q4HRRT PRN PRN Reason: Shortness Of Breath/wheezing Folic Acid (Folic Acid) 1 mg PO BEDTIME [facility] Last Admin: 04/14/19 20:42 Dose: 1 mg Furosemide (Lasix) 40 mg IVPUSH BIDDIURETIC [facility] Magnesium Sulfate 2 gm/ Premix 50 mls @ 50 mls/hr IV ONETIME ONE Stop: 04/15/19 08:53 Insulin Aspart (Novolog) 0 unit SUBCUT TIDAC [facility]; Protocol Last Admin: 04/15/19 07:38 Dose: Not Given Lisinopril (Prinivil) 10 mg PO DAILY [facility] Lorazepam (Ativan) 0 mg IVPUSH Q4H PRN; Protocol PRN Reason: CIWAA Ondansetron HCl (Zofran) 4 mg IVPUSH Q4H PRN PRN Reason: Nausea Diltiazem 240 Mg 1 each PO DAILY [facility] Potassium Chloride (Klor-Con M20) 40 meq PO TIDMEALS JADEN Stop: 04/15/19 17:31 Sodium Chloride (Saline Flush) 2.5 ml FLUSH ASDIRECTED PRN PRN Reason: Keep Vein Open Thiamine HCl (Vitamin B-1) 100 mg PO BEDTIME [facility] Last Admin: 04/14/19 20:42 Dose: 100 mg Warfarin Sodium (Coumadin) 2 mg PO DAILY@1400 [facility] Last Admin: 04/14/19 14:53 Dose: 2 mg Discontinued Medications Furosemide (Lasix) 40 mg IVPUSH NOW ONE Stop: 04/14/19 10:49 Last Admin: 04/14/19 10:57 Dose: 40 mg Furosemide (Lasix) 40 mg IVPUSH NOW ONE Stop: 04/14/19 17:01 Last Admin: 04/14/19 17:09 Dose: 40 mg Sodium Chloride (Normal Saline) 1,000 mls @ 75 mls/hr IV ASDIRECTED [facility] Last Admin: 04/14/19 11:01 Dose: 75 mls/hr Magnesium Sulfate 4 gm/ Premix 100 mls @ 33.333 mls/hr IV ONETIME ONE Stop: 04/14/19 15:22 Last Admin: 04/14/19 13:18 Dose: 33.333 mls/hr Influenza Virus Vaccine (Pharmacy To Dose - Influenza Vaccine) 1 each IM ONETIME ONE Stop: 04/14/19 12:37 Influenza Virus Vaccine (Fluzone Quad 2505-7514 Syringe) 60 mcg IM .ONCE ONE Stop: 04/14/19 13:01 Last Admin: 04/14/19 15:09 Dose: 60 mcg Potassium Chloride (Klor-Con M20) 40 meq PO BID@1230,1700 [facility] Stop: 04/14/19 17:01 Last Admin: 04/14/19 17:07 Dose: 40 meq Sodium Chloride (Saline Flush) 10 ml FLUSH ASDIRECTED PRN PRN Reason: Keep Vein Open Sodium Chloride (Saline Flush) 2.5 ml FLUSH ASDIRECTED PRN PRN Reason: Keep Vein Open Warfarin Sodium (Coumadin Ask) 1 each PO ONETIME ONE Stop: 04/14/19 12:12 Last Admin: 04/14/19 12:53 Dose: Not Given Warfarin Sodium (Coumadin) 2 mg PO ONETIME ONE Stop: 04/14/19 15:13 Last Admin: 04/14/19 15:45 Dose: 2 mg - Exam General: Alert, Oriented, Cooperative, No Acute Distress Neck: Supple, JVD Lungs: Crackles (bibasilar, but improved.). No: Normal Respiratory Effort ( dyspnea with speech noted.) Cardiovascular: Regular Rate, Irregular Rhythm GI/Abdominal Exam: Normal Bowel Sounds, Soft, Non-Tender Extremities: Normal Inspection, Normal Range of Motion, Non-Tender, Pedal Edema (+3 pitting edema) Skin: Other (loyd discoloration to lower extremities) Neurological: No New Focal Deficit Psy/Mental Status: Alert, Normal Affect, Normal Mood - Problem List & Annotations (1) Acute respiratory failure with hypoxia SNOMED Code(s): 16901172, 444506831 Code(s): J96.01 - ACUTE RESPIRATORY FAILURE WITH HYPOXIA Status: Acute Current Visit: Yes (2) CHF exacerbation SNOMED Code(s): 258427783, 95351598315388 Code(s): I50.9 - HEART FAILURE, UNSPECIFIED Status: Acute Current Visit: Yes (3) Hyponatremia SNOMED Code(s): 58716005 Code(s): E87.1 - HYPO-OSMOLALITY AND HYPONATREMIA Status: Acute Current Visit: No (4) Hypomagnesemia SNOMED Code(s): 234901795 Code(s): E83.42 - HYPOMAGNESEMIA Status: Acute Current Visit: Yes (5) Pulmonary hypertension SNOMED Code(s): 66506902 Code(s): I27.20 - PULMONARY HYPERTENSION, UNSPECIFIED Status: Chronic Current Visit: Yes (6) Alcohol abuse SNOMED Code(s): 18021573 Code(s): F10.10 - ALCOHOL ABUSE, UNCOMPLICATED Status: Chronic Current Visit: Yes (7) Atrial fibrillation SNOMED Code(s): 03889066 Code(s): I48.91 - UNSPECIFIED ATRIAL FIBRILLATION Status: Chronic Current Visit: Yes (8) Chronic anticoagulation SNOMED Code(s): 851101383 Code(s): 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 Status: Chronic Current Visit: Yes (9) HTN (hypertension) SNOMED Code(s): 71197376 Code(s): I10 - ESSENTIAL (PRIMARY) HYPERTENSION Status: Chronic Current Visit: Yes - Problem List Review Problem List Initiated/Reviewed/Updated: Yes - My Orders Last 24 Hours: My Active Orders 04/14/19 11:31 Patient Status [ADT] Stat 04/14/19 11:32 Intake and Output Strict [RC] Q12H 04/14/19 12:04 Height and Weight [RC] DAILY Up With Assistance [RC] ASDIRECTED VTE/DVT Education [RC] PER UNIT ROUTINE Vital Signs [RC] Q4H Acetaminophen [Tylenol] 650 mg PO Q4H PRN Albuterol/Ipratropium [DuoNeb 3.0-0.5 MG/3 ML] 3 ml NEB Q4HRRT PRN Ondansetron [Zofran] 4 mg IVPUSH Q4H PRN Resuscitation Status Routine 04/14/19 12:06 RT Aerosol Therapy [RC] ASDIRECTED 04/14/19 12:12 Telemetry Monitoring [Cardiac Monitoring] [RC] . DIRECTED 04/14/19 12:17 Echo Comp wo Cont [US] Urgent 04/14/19 12:20 Blood Glucose Check, Bedside [RC] TIDAC LORazepam [Ativan] See Protocol IVPUSH Q4H PRN 04/14/19 12:21 CIWAA Assessment [RC] Q4H 04/14/19 14:00 Warfarin [Coumadin] 2 mg PO DAILY@1400 04/14/19 17:00 Insulin Aspart [NovoLOG] See Protocol SUBCUT TIDAC 04/14/19 21:00 Folic Acid 1 mg PO BEDTIME Thiamine [Vitamin B-1] 100 mg PO BEDTIME 04/14/19 Lunch 2 Gram Sodium Diet [DIET] 04/15/19 07:32 BMP [BASIC METABOLIC PANEL,BMP] [CHEM] Q8H 04/15/19 07:54 Magnesium Sulfate/Water [Magnesium Sulfate in Water Premix] 2 gm Premix Bag 1 bag IV ONETIME 04/15/19 08:00 Furosemide [Lasix] 40 mg IVPUSH BIDDIURETIC Potassium Chloride [Klor-Con M20] 40 meq PO TIDMEALS 04/15/19 09:00 Lisinopril [Prinivil] 10 mg PO DAILY Patient's Own Medication [Ptom] 1 each PO DAILY 04/16/19 05:11 CBC WITH AUTO DIFF [HEME] AM INR,PT,PROTHROMBIN TIME [COAG] AM MAGNESIUM [CHEM] AM 04/17/19 05:11 CBC WITH AUTO DIFF [HEME] AM INR,PT,PROTHROMBIN TIME [COAG] AM MAGNESIUM [CHEM] AM - Plan Plan:: This 63 year old male admitted with acute hypoxic respiratory failure and acute on chronic CHF exacerbation 1. Acute hypoxic respiratory failure: Improving, continue oxygen therapy, wean as possible. Keep sats 90%. 2. Acute on Chronic CHF exacerbation: Diuresed over 10 lbs. Continue IV Lasix for diuresis. Strict I/O, Low Na diet, Daily weights. 1.5 L FR. Repeat ECHO. Venous doppler of bilateral legs shows possible but no definite DVT. Will keep on Warfarin, aim for INR closer to 3.0. 3. Hyponatremia: Improving with diuresis. Likely multifactorial, CHF and alcohol abuse. Asymptomatic. monitor closely with diuresis. Continue fluid restriction. 4. Afib: Chronic, Continue Diltiazem for now. Monitor on telemetry. Continue Coumadin, aim for higher INR, closer to 3.0. 5. HTN: Stable currently, monitor with diuresis. Continue Lisinopril. 6. Alcohol abuse: CIWAA protocol with Ativan PRN. Supplement with Thiamine and folic acid. 7. DM Type 2: Hold Metformin during hospitalization. BS checks with meals and Novolog SSI VTE prophylaxis: Coumadin Dispo: 3 days
[2019-04-15 08:00] LABS: BLOOD UREA NITROGEN,BUN 7 mg/dL (7.0-18.0); CARBON DIOXIDE,CO2 33.7 mmol/L (21.0-32.0); CHLORIDE,CL 86 mmol/L (98-107); GLUCOSE RANDOM 128 mg/dL (74-106); POTASSIUM,K 4.3 mmol/L (3.5-5.1); SODIUM,NA 124 mmol/L (136-148)
[2019-04-15] MEDS: Potassium Chloride 20 MEQ Tab.ER PO SCH ×2 (08:16→12:21)
[2019-04-15] MEDS: Lisinopril 5 MG Tab PO SCH (08:16)
[2019-04-15] MEDS: Furosemide 40 MG/4 ML VIAL IVPUSH SCH ×2 (08:17→14:46)
[2019-04-15] MEDS ORDERED: DILTIAZEM 240 MG PO SCH (09:00)
[2019-04-15] MEDS: Diltiazem 120 MG Cap.CD PO SCH (09:28)
[2019-04-15] MEDS: Warfarin 2 MG Tab PO SCH (14:38)
[2019-04-15] MEDS ORDERED: Warfarin 2 MG Tab PO ONE (14:45)
[2019-04-15 15:36] LABS: BLOOD UREA NITROGEN,BUN 11 mg/dL (7.0-18.0); CARBON DIOXIDE,CO2 31.4 mmol/L (21.0-32.0); CHLORIDE,CL 89 mmol/L (98-107); GLUCOSE RANDOM 113 mg/dL (74-106)
[2019-04-15 15:39] LABS: POTASSIUM,K 4.6 mmol/L (3.5-5.1); SODIUM,NA 126 mmol/L (136-148)
--- NOTE | 2019-04-15 15:51 | ECHO ---
The echocardiogram report can be seen in this patient's EMR (Electronic Medical Record) in the REPORTS section. The echocardiogram report has also been scanned into PACS and can be seen there as well. KAYLIN
[2019-04-15] MEDS: Thiamine 100 MG Tab PO SCH (20:39)
[2019-04-15] MEDS: Folic Acid 1 MG Tab PO SCH (20:39)
[2019-04-16 07:01] LABS: BLOOD UREA NITROGEN,BUN 12 mg/dL (7.0-18.0); CHLORIDE,CL 90 mmol/L (98-107); GLUCOSE RANDOM 119 mg/dL (74-106); POTASSIUM,K 4.6 mmol/L (3.5-5.1); SODIUM,NA 127 mmol/L (136-148)
[2019-04-16] MEDS: Insulin Aspart 100 Units/ML 3 ML Pen SUBCUT SCH ×3 (07:35→17:53)
[2019-04-16] MEDS ORDERED: Magnesium Sulfate/Water 2 GM in Premix Bag 1 BAG IV ONE (07:59)
--- NOTE | 2019-04-16 08:04 | PCM.PN ---
- General Info Date of Service: 04/16/19 Admission Dx/Problem (Free Text): Admission Diagnosis/Problem Admission Diagnosis/Problem CHF, Congestive heart failure Subjective Update: sitting up in the chair, reports feeling better today. Some edema still to legs , but feels breathing is better. Noted to have significant dyspnea with ambulation and hypoxia. No chest pain or concerns this morning. Functional Status: Reports: Pain Controlled - Review of Systems HEENT: Reports: No Symptoms Pulmonary: Reports: Shortness of Breath Cardiovascular: Reports: Dyspnea on Exertion, Edema. Denies: Chest Pain Gastrointestinal: Reports: No Symptoms Genitourinary: Reports: No Symptoms. Denies: Dysuria, Frequency, Burning Musculoskeletal: Reports: No Symptoms Skin: Reports: No Symptoms Neurological: Reports: No Symptoms Psychiatric: Reports: No Symptoms - Patient Data Vitals - Most Recent: Last Vital Signs Temp 97.3 F 04/16/19 07:21 Pulse 64 04/16/19 07:21 Resp 16 04/16/19 07:21 BP 123/59 L 04/16/19 07:21 Pulse Ox 98 04/16/19 07:21 Weight - Most Recent: 91.217 kg I&O - Last 24 Hours: Intake & Output 04/15/19 04/16/19 04/16/19 22:59 06:59 14:59 Intake Total 350 200 Output Total 750 280 Balance -400 -80 Lab Results Last 24 Hours: Laboratory Results - last 24 hr 04/15/19 04/15/19 04/15/19 Range/Units 11:58 15:00 16:09 WBC (4.0-11.0) K/uL RBC (4.50-5.90) M/uL Hgb (13.0-17.0) g/dL Hct (38.0-50.0) % MCV (80.0-98.0) fL MCH (27.0-32.0) pg MCHC (31.0-37.0) g/dL RDW Std Deviation (28.0-62.0) fl RDW Coeff of Ijeoma (11.0-15.0) % Plt Count (150-400) K/uL MPV (7.40-12.00) fL Neut % (Auto) (48.0-80.0) % Lymph % (Auto) (16.0-40.0) % [place] % (Auto) (0.0-15.0) % Eos % (Auto) (0.0-7.0) % Baso % (Auto) (0.0-1.5) % Neut # (Auto) (1.4-5.7) K/uL Lymph # (Auto) (0.6-2.4) K/uL [place] # (Auto) (0.0-0.8) K/uL Eos # (Auto) (0.0-0.7) K/uL Baso # (Auto) (0.0-0.1) K/uL Nucleated RBC % /100WBC Nucleated RBCs # K/uL INR Sodium 126 L (136-148) mmol/L Potassium 4.6 (3.5-5.1) mmol/L Chloride 89 L (98-107) mmol/L Carbon Dioxide 31.4 (21.0-32.0) mmol/L BUN 11 (7.0-18.0) mg/dL Creatinine 0.9 (0.8-1.3) mg/dL Est Cr Clr Drug Dosing 81.28 mL/min Estimated GFR (MDRD) > 60.0 ml/min Glucose 113 H (74-106) mg/dL POC Glucose 93 116 H (60-110) mg/dL Calcium 8.6 (8.5-10.1) mg/dL Magnesium (1.8-2.4) mg/dL Total Bilirubin (0.2-1.0) mg/dL AST (15-37) IU/L ALT (14-63) IU/L Alkaline Phosphatase (46-116) U/L Total Protein (6.4-8.2) g/dL Albumin (3.4-5.0) g/dL Globulin (2.6-4.0) g/dL Albumin/Globulin Ratio (0.9-1.6) 04/15/19 04/16/19 04/16/19 Range/Units 20:29 06:07 06:07 WBC 7.34 (4.0-11.0) K/uL RBC 4.28 L (4.50-5.90) M/uL Hgb 12.4 L (13.0-17.0) g/dL Hct 38.0 (38.0-50.0) % MCV 88.8 (80.0-98.0) fL MCH 29.0 (27.0-32.0) pg MCHC 32.6 (31.0-37.0) g/dL RDW Std Deviation 44.3 (28.0-62.0) fl RDW Coeff of Ijeoma 14 (11.0-15.0) % Plt Count 147 L (150-400) K/uL MPV 10.40 (7.40-12.00) fL Neut % (Auto) 81.9 H (48.0-80.0) % Lymph % (Auto) 8.0 L (16.0-40.0) % [place] % (Auto) 7.9 (0.0-15.0) % Eos % (Auto) 1.5 (0.0-7.0) % Baso % (Auto) 0.7 (0.0-1.5) % Neut # (Auto) 6.0 H (1.4-5.7) K/uL Lymph # (Auto) 0.6 (0.6-2.4) K/uL [place] # (Auto) 0.6 (0.0-0.8) K/uL Eos # (Auto) 0.1 (0.0-0.7) K/uL Baso # (Auto) 0.1 (0.0-0.1) K/uL Nucleated RBC % 0.0 /100WBC Nucleated RBCs # 0 K/uL INR Sodium 127 L (136-148) mmol/L Potassium 4.6 (3.5-5.1) mmol/L Chloride 90 L (98-107) mmol/L Carbon Dioxide 30.0 (21.0-32.0) mmol/L BUN 12 (7.0-18.0) mg/dL Creatinine 0.8 (0.8-1.3) mg/dL Est Cr Clr Drug Dosing 91.44 mL/min Estimated GFR (MDRD) > 60.0 ml/min Glucose 119 H (74-106) mg/dL POC Glucose 109 (60-110) mg/dL Calcium 8.8 (8.5-10.1) mg/dL Magnesium 1.7 L (1.8-2.4) mg/dL Total Bilirubin 0.9 (0.2-1.0) mg/dL AST 29 (15-37) IU/L ALT 18 (14-63) IU/L Alkaline Phosphatase 129 H (46-116) U/L Total Protein 6.4 (6.4-8.2) g/dL Albumin 3.0 L (3.4-5.0) g/dL Globulin 3.4 (2.6-4.0) g/dL Albumin/Globulin Ratio 0.9 (0.9-1.6) 04/16/19 Range/Units 06:07 WBC (4.0-11.0) K/uL RBC (4.50-5.90) M/uL Hgb (13.0-17.0) g/dL Hct (38.0-50.0) % MCV (80.0-98.0) fL MCH (27.0-32.0) pg MCHC (31.0-37.0) g/dL RDW Std Deviation (28.0-62.0) fl RDW Coeff of Ijeoma (11.0-15.0) % Plt Count (150-400) K/uL MPV (7.40-12.00) fL Neut % (Auto) (48.0-80.0) % Lymph % (Auto) (16.0-40.0) % [place] % (Auto) (0.0-15.0) % Eos % (Auto) (0.0-7.0) % Baso % (Auto) (0.0-1.5) % Neut # (Auto) (1.4-5.7) K/uL Lymph # (Auto) (0.6-2.4) K/uL [place] # (Auto) (0.0-0.8) K/uL Eos # (Auto) (0.0-0.7) K/uL Baso # (Auto) (0.0-0.1) K/uL Nucleated RBC % /100WBC Nucleated RBCs # K/uL INR 1.80 Sodium (136-148) mmol/L Potassium (3.5-5.1) mmol/L Chloride (98-107) mmol/L Carbon Dioxide (21.0-32.0) mmol/L BUN (7.0-18.0) mg/dL Creatinine (0.8-1.3) mg/dL Est Cr Clr Drug Dosing mL/min Estimated GFR (MDRD) ml/min Glucose (74-106) mg/dL POC Glucose (60-110) mg/dL Calcium (8.5-10.1) mg/dL Magnesium (1.8-2.4) mg/dL Total Bilirubin (0.2-1.0) mg/dL AST (15-37) IU/L ALT (14-63) IU/L Alkaline Phosphatase (46-116) U/L Total Protein (6.4-8.2) g/dL Albumin (3.4-5.0) g/dL Globulin (2.6-4.0) g/dL Albumin/Globulin Ratio (0.9-1.6) Med Orders - Current: Current Medications Acetaminophen (Tylenol) 650 mg PO Q4H PRN PRN Reason: Pain (mild 1-3) Last Admin: 04/15/19 19:45 Dose: 650 mg Albuterol/Ipratropium (Duoneb 3.0-0.5 Mg/3 Ml) 3 ml NEB Q4HRRT PRN PRN Reason: Shortness Of Breath/wheezing Diltiazem HCl (Cardizem Cd) 240 mg PO DAILY [facility] Last Admin: 04/15/19 09:28 Dose: 240 mg Folic Acid (Folic Acid) 1 mg PO BEDTIME [facility] Last Admin: 04/15/19 20:39 Dose: 1 mg Furosemide (Lasix) 40 mg IVPUSH BIDDIURETIC [facility] Last Admin: 04/15/19 14:46 Dose: 40 mg Magnesium Sulfate 2 gm/ Premix 50 mls @ 50 mls/hr IV ONETIME ONE Stop: 04/16/19 08:58 Insulin Aspart (Novolog) 0 unit SUBCUT TIDAC [facility]; Protocol Last Admin: 04/16/19 07:35 Dose: Not Given Lisinopril (Prinivil) 10 mg PO DAILY [facility] Last Admin: 04/15/19 08:16 Dose: 10 mg Lorazepam (Ativan) 0 mg IVPUSH Q4H PRN; Protocol PRN Reason: CIWAA Ondansetron HCl (Zofran) 4 mg IVPUSH Q4H PRN PRN Reason: Nausea Sodium Chloride (Saline Flush) 2.5 ml FLUSH ASDIRECTED PRN PRN Reason: Keep Vein Open Thiamine HCl (Vitamin B-1) 100 mg PO BEDTIME [facility] Last Admin: 04/15/19 20:39 Dose: 100 mg Discontinued Medications Furosemide (Lasix) 40 mg IVPUSH NOW ONE Stop: 04/14/19 10:49 Last Admin: 04/14/19 10:57 Dose: 40 mg Furosemide (Lasix) 40 mg IVPUSH NOW ONE Stop: 04/14/19 17:01 Last Admin: 04/14/19 17:09 Dose: 40 mg Sodium Chloride (Normal Saline) 1,000 mls @ 75 mls/hr IV ASDIRECTED [facility] Last Admin: 04/14/19 11:01 Dose: 75 mls/hr Magnesium Sulfate 4 gm/ Premix 100 mls @ 33.333 mls/hr IV ONETIME ONE Stop: 04/14/19 15:22 Last Admin: 04/14/19 13:18 Dose: 33.333 mls/hr Magnesium Sulfate 2 gm/ Premix 50 mls @ 50 mls/hr IV ONETIME ONE Stop: 04/15/19 08:53 Last Admin: 04/15/19 08:17 Dose: 50 mls/hr Influenza Virus Vaccine (Pharmacy To Dose - Influenza Vaccine) 1 each IM ONETIME ONE Stop: 04/14/19 12:37 Influenza Virus Vaccine (Fluzone Quad 3674-5850 Syringe) 60 mcg IM .ONCE ONE Stop: 04/14/19 13:01 Last Admin: 04/14/19 15:09 Dose: 60 mcg Diltiazem 240 Mg 1 each PO DAILY [facility] Potassium Chloride (Klor-Con M20) 40 meq PO BID@1230,1700 [facility] Stop: 04/14/19 17:01 Last Admin: 04/14/19 17:07 Dose: 40 meq Potassium Chloride (Klor-Con M20) 40 meq PO TIDMEALS [facility] Stop: 04/15/19 17:31 Last Admin: 04/15/19 12:21 Dose: 40 meq Sodium Chloride (Saline Flush) 10 ml FLUSH ASDIRECTED PRN PRN Reason: Keep Vein Open Sodium Chloride (Saline Flush) 2.5 ml FLUSH ASDIRECTED PRN PRN Reason: Keep Vein Open Warfarin Sodium (Coumadin Ask) 1 each PO ONETIME ONE Stop: 04/14/19 12:12 Last Admin: 04/14/19 12:53 Dose: Not Given Warfarin Sodium (Coumadin) 2 mg PO DAILY@1400 [facility] Last Admin: 04/15/19 14:38 Dose: Not Given Warfarin Sodium (Coumadin) 2 mg PO ONETIME ONE Stop: 04/14/19 15:13 Last Admin: 04/14/19 15:45 Dose: 2 mg Warfarin Sodium (Coumadin) 4 mg PO ONETIME ONE Stop: 04/15/19 14:46 Last Admin: 04/15/19 14:46 Dose: 4 mg - Exam General: Alert, Oriented, Cooperative, No Acute Distress Lungs: Normal Respiratory Effort, Crackles (improving). No: Wheezing Cardiovascular: Regular Rate, Regular Rhythm GI/Abdominal Exam: Normal Bowel Sounds, Soft, Non-Tender Back Exam: Normal Inspection, Full Range of Motion Extremities: Normal Inspection, Normal Range of Motion, Non-Tender, Pedal Edema (+2 pitting edema to BLE) Neurological: No New Focal Deficit Psy/Mental Status: Alert, Normal Affect, Normal Mood - Problem List & Annotations (1) Acute respiratory failure with hypoxia SNOMED Code(s): 86050727, 873421301 Code(s): J96.01 - ACUTE RESPIRATORY FAILURE WITH HYPOXIA Status: Acute Current Visit: Yes (2) CHF exacerbation SNOMED Code(s): 843753521, 69295199603409 Code(s): I50.9 - HEART FAILURE, UNSPECIFIED Status: Acute Current Visit: Yes (3) Hyponatremia SNOMED Code(s): 12340445 Code(s): E87.1 - HYPO-OSMOLALITY AND HYPONATREMIA Status: Acute Current Visit: No (4) Hypomagnesemia SNOMED Code(s): 399980307 Code(s): E83.42 - HYPOMAGNESEMIA Status: Acute Current Visit: Yes (5) Pulmonary hypertension SNOMED Code(s): 00690829 Code(s): I27.20 - PULMONARY HYPERTENSION, UNSPECIFIED Status: Chronic Current Visit: Yes (6) Alcohol abuse SNOMED Code(s): 14553488 Code(s): F10.10 - ALCOHOL ABUSE, UNCOMPLICATED Status: Chronic Current Visit: Yes (7) Atrial fibrillation SNOMED Code(s): 40455235 Code(s): I48.91 - UNSPECIFIED ATRIAL FIBRILLATION Status: Chronic Current Visit: Yes (8) Chronic anticoagulation SNOMED Code(s): 829181248 Code(s): Z79.01 - JAIL (CURRENT) USE OF ANTICOAGULANTS Status: Chronic Current Visit: Yes (9) HTN (hypertension) SNOMED Code(s): 21564647 Code(s): I10 - ESSENTIAL (PRIMARY) HYPERTENSION Status: Chronic Current Visit: Yes - Problem List Review Problem List Initiated/Reviewed/Updated: Yes - My Orders Last 24 Hours: My Active Orders 04/15/19 08:00 Furosemide [Lasix] 40 mg IVPUSH BIDDIURETIC 04/15/19 09:00 Diltiazem [Cardizem CD] 240 mg PO DAILY Lisinopril [Prinivil] 10 mg PO DAILY 04/16/19 07:59 Magnesium Sulfate/Water [Magnesium Sulfate in Water Premix] 2 gm Premix Bag 1 bag IV ONETIME 04/17/19 05:11 CBC WITH AUTO DIFF [HEME] AM COMPREHENSIVE METABOLIC PN,CMP [CHEM] AM INR,PT,PROTHROMBIN TIME [COAG] AM MAGNESIUM [CHEM] AM - Plan Plan:: This 63 year old male admitted with acute hypoxic respiratory failure and acute on chronic CHF exacerbation 1. Acute hypoxic respiratory failure: Improving, continue oxygen therapy, wean as possible. Keep sats 90%. Needs high amounts of oxygen with ambulation, desats to 70%. at rest remains 1-2 L mid 90s. 2. Acute on Chronic CHF exacerbation: Continue IV Lasix for diuresis, will increase to TID and monitor diuresis . Strict I/O, Low Na diet, Daily weights. 1.5 L FR. Repeat ECHO pending. 3. Hyponatremia: Na 127 today. Improving with diuresis. Likely multifactorial, CHF and alcohol abuse. Asymptomatic. monitor closely with diuresis. Continue fluid restriction. 4. Afib: Chronic, Continue Diltiazem for now. Monitor on telemetry. Continue Coumadin, aim for higher INR, closer to 3.0. 5. HTN: Stable currently, monitor with diuresis. Continue Lisinopril. 6. Alcohol abuse: CIWAA protocol with Ativan PRN., no signs of alcohol withdrawal noted. Supplement with Thiamine and folic acid. 7. DM Type 2: Hold Metformin during hospitalization. BS checks with meals and Novolog SSI VTE prophylaxis: Coumadin Dispo: 3 days
[2019-04-16] MEDS: Furosemide 40 MG/4 ML VIAL IVPUSH SCH ×3 (08:15→21:15)
[2019-04-16] MEDS: Diltiazem 120 MG Cap.CD PO SCH (08:23)
[2019-04-16] MEDS: Lisinopril 5 MG Tab PO SCH (08:23)
[2019-04-16] MEDS: Acetaminophen 325 MG Tab PO PRN (20:00)
[2019-04-16] MEDS: Folic Acid 1 MG Tab PO SCH (20:00)
[2019-04-16] MEDS: Thiamine 100 MG Tab PO SCH (20:00)
[2019-04-17] MEDS: Furosemide 40 MG/4 ML VIAL IVPUSH SCH ×3 (05:39→22:23)
[2019-04-17] MEDS: Insulin Aspart 100 Units/ML 3 ML Pen SUBCUT SCH ×3 (06:57→17:13)
[2019-04-17 07:02] LABS: BLOOD UREA NITROGEN,BUN 12 mg/dL (7.0-18.0); CARBON DIOXIDE,CO2 32.5 mmol/L (21.0-32.0); CHLORIDE,CL 92 mmol/L (98-107); GLUCOSE RANDOM 149 mg/dL (74-106); SODIUM,NA 131 mmol/L (136-148)
[2019-04-17] MEDS ORDERED: Magnesium Sulfate/Water 4 GM in Premix Bag 1 BAG IV ONE (08:24)
[2019-04-17] MEDS ORDERED: Potassium Chloride 20 MEQ Tab.ER PO ONE (08:24)
[2019-04-17] MEDS: Diltiazem 120 MG Cap.CD PO SCH (08:31)
[2019-04-17] MEDS: Lisinopril 5 MG Tab PO SCH (08:32)
[2019-04-17] MEDS: Enoxaparin 100 MG/1 ML Syringe SUBCUT SCH ×2 (08:48→20:11)
--- NOTE | 2019-04-17 09:48 | PCM.PN ---
- General Info Date of Service: 04/17/19 Admission Dx/Problem (Free Text): Admission Diagnosis/Problem Admission Diagnosis/Problem CHF, Congestive heart failure Subjective Update: Sitting up in the chair today, improving. Reports he is getting ready to go home soon. Reports shortness of breath is better, continues to have some exertional dyspnea. Swelling improving. No chest pain. Functional Status: Reports: Pain Controlled, Tolerating Diet, Ambulating, Urinating - Review of Systems General: Reports: No Symptoms. Denies: Weakness, Malaise HEENT: Reports: No Symptoms. Denies: Headaches, Sore Throat, Visual Changes Pulmonary: Reports: Shortness of Breath Cardiovascular: Reports: Dyspnea on Exertion, Edema. Denies: Chest Pain Gastrointestinal: Reports: No Symptoms. Denies: Abdominal Pain, Nausea, Vomiting Genitourinary: Reports: No Symptoms Musculoskeletal: Reports: No Symptoms Skin: Reports: No Symptoms Neurological: Reports: No Symptoms Psychiatric: Reports: No Symptoms - Patient Data Vitals - Most Recent: Last Vital Signs Temp 97.2 F 04/17/19 07:30 Pulse 68 04/17/19 08:31 Resp 18 04/17/19 07:30 BP 129/63 04/17/19 08:32 Pulse Ox 96 04/17/19 07:30 Weight - Most Recent: 89.902 kg I&O - Last 24 Hours: Intake & Output 04/16/19 04/17/19 04/17/19 22:59 06:59 14:59 Intake Total 150 500 Output Total 910 625 Balance -760 -125 Lab Results Last 24 Hours: Laboratory Results - last 24 hr 04/16/19 04/16/19 04/16/19 Range/Units 07:01 11:33 16:18 WBC (4.0-11.0) K/uL RBC (4.50-5.90) M/uL Hgb (13.0-17.0) g/dL Hct (38.0-50.0) % MCV (80.0-98.0) fL MCH (27.0-32.0) pg MCHC (31.0-37.0) g/dL RDW Std Deviation (28.0-62.0) fl RDW Coeff of Ijeoma (11.0-15.0) % Plt Count (150-400) K/uL MPV (7.40-12.00) fL Neut % (Auto) (48.0-80.0) % Lymph % (Auto) (16.0-40.0) % [place] % (Auto) (0.0-15.0) % Eos % (Auto) (0.0-7.0) % Baso % (Auto) (0.0-1.5) % Neut # (Auto) (1.4-5.7) K/uL Lymph # (Auto) (0.6-2.4) K/uL [place] # (Auto) (0.0-0.8) K/uL Eos # (Auto) (0.0-0.7) K/uL Baso # (Auto) (0.0-0.1) K/uL Nucleated RBC % /100WBC Nucleated RBCs # K/uL INR Sodium (136-148) mmol/L Potassium (3.5-5.1) mmol/L Chloride (98-107) mmol/L Carbon Dioxide (21.0-32.0) mmol/L BUN (7.0-18.0) mg/dL Creatinine (0.8-1.3) mg/dL Est Cr Clr Drug Dosing mL/min Estimated GFR (MDRD) ml/min Glucose (74-106) mg/dL POC Glucose 115 H 170 H 113 H (60-110) mg/dL Calcium (8.5-10.1) mg/dL Magnesium (1.8-2.4) mg/dL Total Bilirubin (0.2-1.0) mg/dL AST (15-37) IU/L ALT (14-63) IU/L Alkaline Phosphatase (46-116) U/L Total Protein (6.4-8.2) g/dL Albumin (3.4-5.0) g/dL Globulin (2.6-4.0) g/dL Albumin/Globulin Ratio (0.9-1.6) 04/17/19 04/17/19 04/17/19 Range/Units 05:44 06:23 06:23 WBC 8.65 (4.0-11.0) K/uL RBC 4.56 (4.50-5.90) M/uL Hgb 13.3 (13.0-17.0) g/dL Hct 40.8 (38.0-50.0) % MCV 89.5 (80.0-98.0) fL MCH 29.2 (27.0-32.0) pg MCHC 32.6 (31.0-37.0) g/dL RDW Std Deviation 45.0 (28.0-62.0) fl RDW Coeff of Ijeoma 14 (11.0-15.0) % Plt Count 137 L (150-400) K/uL MPV 10.20 (7.40-12.00) fL Neut % (Auto) 81.5 H (48.0-80.0) % Lymph % (Auto) 6.4 L (16.0-40.0) % [place] % (Auto) 9.9 (0.0-15.0) % Eos % (Auto) 1.4 (0.0-7.0) % Baso % (Auto) 0.8 (0.0-1.5) % Neut # (Auto) 7.1 H (1.4-5.7) K/uL Lymph # (Auto) 0.6 (0.6-2.4) K/uL [place] # (Auto) 0.9 H (0.0-0.8) K/uL Eos # (Auto) 0.1 (0.0-0.7) K/uL Baso # (Auto) 0.1 (0.0-0.1) K/uL Nucleated RBC % 0.0 /100WBC Nucleated RBCs # 0 K/uL INR Sodium 131 L (136-148) mmol/L Potassium 4.0 (3.5-5.1) mmol/L Chloride 92 L (98-107) mmol/L Carbon Dioxide 32.5 H (21.0-32.0) mmol/L BUN 12 (7.0-18.0) mg/dL Creatinine 0.8 (0.8-1.3) mg/dL Est Cr Clr Drug Dosing 91.44 mL/min Estimated GFR (MDRD) > 60.0 ml/min Glucose 149 H (74-106) mg/dL POC Glucose 110 (60-110) mg/dL Calcium 9.3 (8.5-10.1) mg/dL Magnesium 1.5 L (1.8-2.4) mg/dL Total Bilirubin 1.0 (0.2-1.0) mg/dL AST 26 (15-37) IU/L ALT 18 (14-63) IU/L Alkaline Phosphatase 148 H (46-116) U/L Total Protein 7.0 (6.4-8.2) g/dL Albumin 3.3 L (3.4-5.0) g/dL Globulin 3.7 (2.6-4.0) g/dL Albumin/Globulin Ratio 0.9 (0.9-1.6) 04/17/19 Range/Units 06:23 WBC (4.0-11.0) K/uL RBC (4.50-5.90) M/uL Hgb (13.0-17.0) g/dL Hct (38.0-50.0) % MCV (80.0-98.0) fL MCH (27.0-32.0) pg MCHC (31.0-37.0) g/dL RDW Std Deviation (28.0-62.0) fl RDW Coeff of [place]je[place] (11.0-15.0) % Plt Count (150-400) K/uL MPV (7.40-12.00) fL Neut % (Auto) (48.0-80.0) % Lymph % (Auto) (16.0-40.0) % [place] % (Auto) (0.0-15.0) % Eos % (Auto) (0.0-7.0) % Baso % (Auto) (0.0-1.5) % Neut # (Auto) (1.4-5.7) K/uL Lymph # (Auto) (0.6-2.4) K/uL [place] # (Auto) (0.0-0.8) K/uL Eos # (Auto) (0.0-0.7) K/uL Baso # (Auto) (0.0-0.1) K/uL Nucleated RBC % /100WBC Nucleated RBCs # K/uL INR 1.54 Sodium (136-148) mmol/L Potassium (3.5-5.1) mmol/L Chloride (98-107) mmol/L Carbon Dioxide (21.0-32.0) mmol/L BUN (7.0-18.0) mg/dL Creatinine (0.8-1.3) mg/dL Est Cr Clr Drug Dosing mL/min Estimated GFR (MDRD) ml/min Glucose (74-106) mg/dL POC Glucose (60-110) mg/dL Calcium (8.5-10.1) mg/dL Magnesium (1.8-2.4) mg/dL Total Bilirubin (0.2-1.0) mg/dL AST (15-37) IU/L ALT (14-63) IU/L Alkaline Phosphatase (46-116) U/L Total Protein (6.4-8.2) g/dL Albumin (3.4-5.0) g/dL Globulin (2.6-4.0) g/dL Albumin/Globulin Ratio (0.9-1.6) Med Orders - Current: Current Medications Acetaminophen (Tylenol) 650 mg PO Q4H PRN PRN Reason: Pain (mild 1-3) Last Admin: 04/16/19 20:00 Dose: 650 mg Albuterol/Ipratropium (Duoneb 3.0-0.5 Mg/3 Ml) 3 ml NEB Q4HRRT PRN PRN Reason: Shortness Of Breath/wheezing Diltiazem HCl (Cardizem Cd) 240 mg PO DAILY [facility] Last Admin: 04/17/19 08:31 Dose: 240 mg Enoxaparin Sodium (Lovenox) 90 mg SUBCUT Q12H [facility] Last Admin: 04/17/19 08:48 Dose: 90 mg Folic Acid (Folic Acid) 1 mg PO BEDTIME [facility] Last Admin: 04/16/19 20:00 Dose: 1 mg Furosemide (Lasix) 40 mg IVPUSH TID [facility] Last Admin: 04/17/19 05:39 Dose: 40 mg Magnesium Sulfate 4 gm/ Premix 100 mls @ 33.333 mls/hr IV ONETIME ONE Stop: 04/17/19 11:23 Last Admin: 04/17/19 08:48 Dose: 33.333 mls/hr Insulin Aspart (Novolog) 0 unit SUBCUT TIDAC [facility]; Protocol Last Admin: 04/17/19 06:57 Dose: Not Given Lisinopril (Prinivil) 10 mg PO DAILY [facility] Last Admin: 04/17/19 08:32 Dose: 10 mg Lorazepam (Ativan) 0 mg IVPUSH Q4H PRN; Protocol PRN Reason: CIWAA Ondansetron HCl (Zofran) 4 mg IVPUSH Q4H PRN PRN Reason: Nausea Sodium Chloride (Saline Flush) 2.5 ml FLUSH ASDIRECTED PRN PRN Reason: Keep Vein Open Thiamine HCl (Vitamin B-1) 100 mg PO BEDTIME [facility] Last Admin: 04/16/19 20:00 Dose: 100 mg Warfarin Sodium (Coumadin Sliding Scale) 0 each PO DAILY@1400 [facility] Discontinued Medications Furosemide (Lasix) 40 mg IVPUSH NOW ONE Stop: 04/14/19 10:49 Last Admin: 04/14/19 10:57 Dose: 40 mg Furosemide (Lasix) 40 mg IVPUSH NOW ONE Stop: 04/14/19 17:01 Last Admin: 04/14/19 17:09 Dose: 40 mg Furosemide (Lasix) 40 mg IVPUSH BIDDIURETIC [facility] Last Admin: 04/16/19 08:15 Dose: 40 mg Sodium Chloride (Normal Saline) 1,000 mls @ 75 mls/hr IV ASDIRECTED [facility] Last Admin: 04/14/19 11:01 Dose: 75 mls/hr Magnesium Sulfate 4 gm/ Premix 100 mls @ 33.333 mls/hr IV ONETIME ONE Stop: 04/14/19 15:22 Last Admin: 04/14/19 13:18 Dose: 33.333 mls/hr Magnesium Sulfate 2 gm/ Premix 50 mls @ 50 mls/hr IV ONETIME ONE Stop: 04/15/19 08:53 Last Admin: 04/15/19 08:17 Dose: 50 mls/hr Magnesium Sulfate 2 gm/ Premix 50 mls @ 50 mls/hr IV ONETIME ONE Stop: 04/16/19 08:58 Last Admin: 04/16/19 08:26 Dose: 50 mls/hr Influenza Virus Vaccine (Pharmacy To Dose - Influenza Vaccine) 1 each IM ONETIME ONE Stop: 04/14/19 12:37 Influenza Virus Vaccine (Fluzone Quad [id number] Syringe) 60 mcg IM .ONCE ONE Stop: 04/14/19 13:01 Last Admin: 04/14/19 15:09 Dose: 60 mcg Diltiazem 240 Mg 1 each PO DAILY [facility] Potassium Chloride (Klor-Con M20) 40 meq PO BID@1230,1700 [facility] Stop: 04/14/19 17:01 Last Admin: 04/14/19 17:07 Dose: 40 meq Potassium Chloride (Klor-Con M20) 40 meq PO TIDMEALS [facility] Stop: 04/15/19 17:31 Last Admin: 04/15/19 12:21 Dose: 40 meq Potassium Chloride (Klor-Con M20) 40 meq PO ONETIME ONE Stop: 04/17/19 08:25 Last Admin: 04/17/19 08:48 Dose: 40 meq Sodium Chloride (Saline Flush) 10 ml FLUSH ASDIRECTED PRN PRN Reason: Keep Vein Open Sodium Chloride (Saline Flush) 2.5 ml FLUSH ASDIRECTED PRN PRN Reason: Keep Vein Open Warfarin Sodium (Coumadin Ask) 1 each PO ONETIME ONE Stop: 04/14/19 12:12 Last Admin: 04/14/19 12:53 Dose: Not Given Warfarin Sodium (Coumadin) 2 mg PO DAILY@1400 JADEN Last Admin: 04/15/19 14:38 Dose: Not Given Warfarin Sodium (Coumadin) 2 mg PO ONETIME ONE Stop: 04/14/19 15:13 Last Admin: 04/14/19 15:45 Dose: 2 mg Warfarin Sodium (Coumadin) 4 mg PO ONETIME ONE Stop: 04/15/19 14:46 Last Admin: 04/15/19 14:46 Dose: 4 mg - Exam General: Alert, Oriented, Cooperative, No Acute Distress Neck: No JVD Lungs: Normal Respiratory Effort, Crackles (nearly gone, clears with cough) Cardiovascular: Regular Rate, Irregular Rhythm GI/Abdominal Exam: Normal Bowel Sounds, Soft, Non-Tender Extremities: Normal Inspection, Normal Range of Motion, Pedal Edema (+2 pitting edema) Neurological: No New Focal Deficit Psy/Mental Status: Alert, Normal Affect, Normal Mood - Problem List & Annotations (1) Acute respiratory failure with hypoxia SNOMED Code(s): 23586497, 535305895 Code(s): J96.01 - ACUTE RESPIRATORY FAILURE WITH HYPOXIA Status: Acute Current Visit: Yes (2) CHF exacerbation SNOMED Code(s): 550029812, 89503811117190 Code(s): I50.9 - HEART FAILURE, UNSPECIFIED Status: Acute Current Visit: Yes (3) Hyponatremia SNOMED Code(s): 73416694 Code(s): E87.1 - HYPO-OSMOLALITY AND HYPONATREMIA Status: Acute Current Visit: No (4) Hypomagnesemia SNOMED Code(s): 988301405 Code(s): E83.42 - HYPOMAGNESEMIA Status: Acute Current Visit: Yes (5) Pulmonary hypertension SNOMED Code(s): 11322011 Code(s): I27.20 - PULMONARY HYPERTENSION, UNSPECIFIED Status: Chronic Current Visit: Yes (6) Alcohol abuse SNOMED Code(s): 62259099 Code(s): F10.10 - ALCOHOL ABUSE, UNCOMPLICATED Status: Chronic Current Visit: Yes (7) Atrial fibrillation SNOMED Code(s): 06003185 Code(s): I48.91 - UNSPECIFIED ATRIAL FIBRILLATION Status: Chronic Current Visit: Yes (8) Chronic anticoagulation SNOMED Code(s): 594165085 Code(s): Z79.01 - LONG-TERM (CURRENT) USE OF ANTICOAGULANTS Status: Chronic Current Visit: Yes (9) HTN (hypertension) SNOMED Code(s): 29874699 Code(s): I10 - ESSENTIAL (PRIMARY) HYPERTENSION Status: Chronic Current Visit: Yes - Problem List Review Problem List Initiated/Reviewed/Updated: Yes - My Orders Last 24 Hours: My Active Orders 04/16/19 14:00 Furosemide [Lasix] 40 mg IVPUSH TID 04/17/19 08:24 Magnesium Sulfate/Water [Magnesium Sulfate in Water Premix] 4 gm Premix Bag 1 bag IV ONETIME 04/17/19 08:30 Enoxaparin [Lovenox] 90 mg SUBCUT Q12H 04/17/19 14:00 Warfarin Sliding Scale [Coumadin Sliding Scale] 0 each PO DAILY@1400 - Plan Plan:: This 63 year old male admitted with acute hypoxic respiratory failure and acute on chronic CHF exacerbation 1. Acute on Chronic CHF exacerbation: Continue IV Lasix for diuresis, continue TID and monitor diuresis . Strict I/O, Low Na diet, Daily weights. 1.5 L FR. Repeat ECHO pending. weight decreasing. Oxygen needs decreasing as well. reports he is always short of breath with ambulation and is noted to be hypoxic with ambulation. Will likely need home oxygen with activity at least. 2. Hyponatremia: Na 131 today. Improving with diuresis. Likely multifactorial, CHF and alcohol abuse. Asymptomatic. monitor closely with diuresis. Continue fluid restriction. 3. Afib: Chronic and stable, Continue Diltiazem for now. Monitor on telemetry. Continue Coumadin, aim for higher INR, closer to 3.0. INR today 1.5, will start Lovenox due to possible DVT but not definite doppler. repeat INR in am. 4. HTN: Stable currently, monitor with diuresis. Continue Lisinopril. 5. Alcohol abuse: CIWAA protocol with Ativan PRN., no signs of alcohol withdrawal noted. Supplement with Thiamine and folic acid. 6. DM Type 2: Hold Metformin during hospitalization. BS checks with meals and Novolog SSI VTE prophylaxis: Coumadin and lovenox. Dispo: 1-[address] Araiza regarding possible DVT and need for close monitoring of INR and INR likely to be ordered Saturday or Saturday pending discharge date. Patient is likely non complaint with medications at home.
[2019-04-17] MEDS ORDERED: Warfarin 2 MG Tab PO SCH (14:00)
[2019-04-17] MEDS: Warfarin Sliding Scale PO SCH (14:35)
[2019-04-17] MEDS: Thiamine 100 MG Tab PO SCH (22:23)
[2019-04-17] MEDS: Folic Acid 1 MG Tab PO SCH (22:23)
[2019-04-18] MEDS: Furosemide 40 MG/4 ML VIAL IVPUSH SCH ×2 (05:57→14:01)
[2019-04-18 06:55] LABS: BLOOD UREA NITROGEN,BUN 13 mg/dL (7.0-18.0); CHLORIDE,CL 93 mmol/L (98-107); GLUCOSE RANDOM 120 mg/dL (74-106); POTASSIUM,K 4.1 mmol/L (3.5-5.1); SODIUM,NA 133 mmol/L (136-148)
[2019-04-18] MEDS: Insulin Aspart 100 Units/ML 3 ML Pen SUBCUT SCH ×2 (07:04→11:48)
[2019-04-18] MEDS: Diltiazem 120 MG Cap.CD PO SCH (08:23)
[2019-04-18] MEDS: Lisinopril 5 MG Tab PO SCH (08:24)
[2019-04-18] MEDS: Enoxaparin 100 MG/1 ML Syringe SUBCUT SCH (08:26)
--- NOTE | 2019-04-18 11:09 | PCM.DCSUM1 ---
Discharge Summary - Discharge Data Discharge Date: 04/18/19 Discharge Disposition: Home, Self-Care 01 Condition: Stable - Referral to Home Health Primary Care Physician: Herminio Araiza MD - Patient Summary/Data Hospital Course: 63 year old male with pmh of a fib, HTN who was admitted for acute on chronic diastolic heart failure. He presented from Dr Araiza's clinic with concerns of shortness of breath and worsening edema. Initial work up included CBC WNL. Hyponatremia noted at 113, K+3.5, Cl 76, bilirubin 1.4, BNP 1044. CXR revealed infiltrates or atelectasis in right middle and right lower lobe with small right pleural effusion. BP 145/70s, noted to be hypoxic on RA upon arrival in [facility] in the 70s. Tachypnea, 26 RR. He was diuresed with Lasix with improvement of his dyspnea and edema. He was placed on CIWA protocol due to his history of alcohol abuse but did not require any Ativan. Doppler of the legs reported possible but not definite DVTs. His INR was noted to be subtheraputic so he was started on Lovenox. Patient today is requesting discharge home. He was discharge home to have follow up with Dr. Araiza. He is to have an INR checked next Saturday. Home oxygen was set up as he was satting 85 % on room air. - Patient Instructions Diet: Regular Diet as Tolerated Other/Special Instructions: INR check Saturday with Results to Dr. Fernández - Discharge Plan *PRESCRIPTION DRUG MONITORING PROGRAM REVIEWED*: Not Applicable *COPY OF PRESCRIPTION DRUG MONITORING REPORT IN PATIENT KAIDEN: Not Applicable Prescriptions/Med Rec: Enoxaparin [Lovenox] 90 mg SUBCUT Q12H 4 Days #8 syringe Home Medications: Home Meds Diltiazem HCl [Dilt-Xr] 240 mg PO DAILY 10/31/16 [History] Lisinopril 10 mg PO DAILY 12/03/18 [History] Naproxen Sodium 220 mg PO . NEEDED PRN 12/03/18 [History] Sildenafil [Revatio] 60 mg PO DAILY PRN 12/03/18 [History] Warfarin [Coumadin] 2 mg PO DAILY 12/03/18 [History] metFORMIN [Glucophage XR] 1,000 mg PO .WITH EVENING MEAL 12/03/18 [History] Furosemide [Lasix] 80 mg PO DAILY 04/14/19 [History] Enoxaparin [Lovenox] 90 mg SUBCUT Q12H 4 Days #8 syringe 04/18/19 [Rx] Oxygen Therapy Mode: Nasal Cannula Oxygen Flow Rate (L/min): 2 Patient Handouts: Home Oxygen Use, Adult, Heart Failure, [id number], Atrial Fibrillation, [id number] Referrals: [facility] [Outside] [facility] [Outside] Kang Kraus MD [Physician] - 05/21/19 10:00 am Herminio Araiza MD [Primary Care Provider] - 04/27/19 2:00 pm - Discharge Summary/Plan Comment DC Time >30 min.: No - Patient Data Vitals - Most Recent: Last Vital Signs Temp 36.4 C 04/18/19 07:00 Pulse 63 04/18/19 08:23 Resp 16 04/18/19 07:00 BP 132/64 04/18/19 08:24 Pulse Ox 94 L 04/18/19 07:00 Weight - Most Recent: 87.271 kg I&O - Last 24 hours: Intake & Output 04/17/19 04/18/19 04/18/19 22:59 06:59 14:59 Intake Total 400 1000 Output Total 1735 1425 Balance -1335 -425 Lab Results - Last 24 hrs: Laboratory Results - last 24 hr 04/17/19 04/17/19 04/17/19 Range/Units 11:45 16:51 20:58 INR Sodium (136-148) mmol/L Potassium (3.5-5.1) mmol/L Chloride (98-107) mmol/L Carbon Dioxide (21.0-32.0) mmol/L BUN (7.0-18.0) mg/dL Creatinine (0.8-1.3) mg/dL Est Cr Clr Drug Dosing mL/min Estimated GFR (MDRD) ml/min Glucose (74-106) mg/dL POC Glucose 110 146 H 116 H (60-110) mg/dL Calcium (8.5-10.1) mg/dL Magnesium (1.8-2.4) mg/dL 04/18/19 04/18/19 04/18/19 Range/Units 05:58 06:20 06:20 INR 1.37 Sodium 133 L (136-148) mmol/L Potassium 4.1 (3.5-5.1) mmol/L Chloride 93 L (98-107) mmol/L Carbon Dioxide 31.0 (21.0-32.0) mmol/L BUN 13 (7.0-18.0) mg/dL Creatinine 0.9 (0.8-1.3) mg/dL Est Cr Clr Drug Dosing 81.28 mL/min Estimated GFR (MDRD) > 60.0 ml/min Glucose 120 H (74-106) mg/dL POC Glucose 116 H (60-110) mg/dL Calcium 9.2 (8.5-10.1) mg/dL Magnesium 1.7 L (1.8-2.4) mg/dL Med Orders - Current: Current Medications Acetaminophen (Tylenol) 650 mg PO Q4H PRN PRN Reason: Pain (mild 1-3) Last Admin: 04/16/19 20:00 Dose: 650 mg Albuterol/Ipratropium (Duoneb 3.0-0.5 Mg/3 Ml) 3 ml NEB Q4HRRT PRN PRN Reason: Shortness Of Breath/wheezing Diltiazem HCl (Cardizem Cd) 240 mg PO DAILY [facility] Last Admin: 04/18/19 08:23 Dose: 240 mg Enoxaparin Sodium (Lovenox) 90 mg SUBCUT Q12H [facility] Last Admin: 04/18/19 08:26 Dose: 90 mg Folic Acid (Folic Acid) 1 mg PO BEDTIME [facility] Last Admin: 04/17/19 22:23 Dose: 1 mg Furosemide (Lasix) 40 mg IVPUSH TID [facility] Last Admin: 04/18/19 05:57 Dose: 40 mg Insulin Aspart (Novolog) 0 unit SUBCUT TIDAC [facility]; Protocol Last Admin: 04/18/19 07:04 Dose: Not Given Lisinopril (Prinivil) 10 mg PO DAILY [facility] Last Admin: 04/18/19 08:24 Dose: 10 mg Lorazepam (Ativan) 0 mg IVPUSH Q4H PRN; Protocol PRN Reason: CIWAA Ondansetron HCl (Zofran) 4 mg IVPUSH Q4H PRN PRN Reason: Nausea Sodium Chloride (Saline Flush) 2.5 ml FLUSH ASDIRECTED PRN PRN Reason: Keep Vein Open Thiamine HCl (Vitamin B-1) 100 mg PO BEDTIME [facility] Last Admin: 04/17/19 22:23 Dose: 100 mg Warfarin Sodium (Coumadin Sliding Scale) 0 each PO DAILY@1400 JADEN Last Admin: 04/17/19 14:35 Dose: Not Given Discontinued Medications Furosemide (Lasix) 40 mg IVPUSH NOW ONE Stop: 04/14/19 10:49 Last Admin: 04/14/19 10:57 Dose: 40 mg Furosemide (Lasix) 40 mg IVPUSH NOW ONE Stop: 04/14/19 17:01 Last Admin: 04/14/19 17:09 Dose: 40 mg Furosemide (Lasix) 40 mg IVPUSH BIDDIURETIC [facility] Last Admin: 04/16/19 08:15 Dose: 40 mg Sodium Chloride (Normal Saline) 1,000 mls @ 75 mls/hr IV ASDIRECTED [facility] Last Admin: 04/14/19 11:01 Dose: 75 mls/hr Magnesium Sulfate 4 gm/ Premix 100 mls @ 33.333 mls/hr IV ONETIME ONE Stop: 04/14/19 15:22 Last Admin: 04/14/19 13:18 Dose: 33.333 mls/hr Magnesium Sulfate 2 gm/ Premix 50 mls @ 50 mls/hr IV ONETIME ONE Stop: 04/15/19 08:53 Last Admin: 04/15/19 08:17 Dose: 50 mls/hr Magnesium Sulfate 2 gm/ Premix 50 mls @ 50 mls/hr IV ONETIME ONE Stop: 04/16/19 08:58 Last Admin: 04/16/19 08:26 Dose: 50 mls/hr Magnesium Sulfate 4 gm/ Premix 100 mls @ 33.333 mls/hr IV ONETIME ONE Stop: 04/17/19 11:23 Last Admin: 04/17/19 08:48 Dose: 33.333 mls/hr Influenza Virus Vaccine (Pharmacy To Dose - Influenza Vaccine) 1 each IM ONETIME ONE Stop: 04/14/19 12:37 Influenza Virus Vaccine (Fluzone Quad 9947-8208 Syringe) 60 mcg IM .ONCE ONE Stop: 04/14/19 13:01 Last Admin: 04/14/19 15:09 Dose: 60 mcg Diltiazem 240 Mg 1 each PO DAILY [facility] Potassium Chloride (Klor-Con M20) 40 meq PO BID@1230,1700 [facility] Stop: 04/14/19 17:01 Last Admin: 04/14/19 17:07 Dose: 40 meq Potassium Chloride (Klor-Con M20) 40 meq PO TIDMEALS [facility] Stop: 04/15/19 17:31 Last Admin: 04/15/19 12:21 Dose: 40 meq Potassium Chloride (Klor-Con M20) 40 meq PO ONETIME ONE Stop: 04/17/19 08:25 Last Admin: 04/17/19 08:48 Dose: 40 meq Sodium Chloride (Saline Flush) 10 ml FLUSH ASDIRECTED PRN PRN Reason: Keep Vein Open Sodium Chloride (Saline Flush) 2.5 ml FLUSH ASDIRECTED PRN PRN Reason: Keep Vein Open Warfarin Sodium (Coumadin Ask) 1 each PO ONETIME ONE Stop: 04/14/19 12:12 Last Admin: 04/14/19 12:53 Dose: Not Given Warfarin Sodium (Coumadin) 2 mg PO DAILY@1400 [facility] Last Admin: 04/15/19 14:38 Dose: Not Given Warfarin Sodium (Coumadin) 2 mg PO ONETIME ONE Stop: 04/14/19 15:13 Last Admin: 04/14/19 15:45 Dose: 2 mg Warfarin Sodium (Coumadin) 4 mg PO ONETIME ONE Stop: 04/15/19 14:46 Last Admin: 04/15/19 14:46 Dose: 4 mg Warfarin Sodium (Coumadin) 4 mg PO 04/17/19@1400 JADEN Stop: 04/17/19 14:01 Last Admin: 04/17/19 14:25 Dose: 4 mg
[2019-04-18] MEDS ORDERED: Warfarin 2 MG Tab PO SCH (13:00)
[2019-04-18 13:01] VITALS: BP 122/59; PULSE 92
[2019-04-18] MEDS: Warfarin Sliding Scale PO SCH (14:16)
== END 2019-04-18 15:18 | disposition home or self-care (01) | DRG 291 ==
LOC: MW.ED 09:25 → OBSVTOIN 10:59 → MW.MS 10:59
PROVIDERS: ADMIT Internal Medicine; ATTEND Internal Medicine
PROC: HZ2ZZZZ Detoxification Services for Substance Abuse Treatment (ICD-10-PCS; principal; 2019-04-14)
PROC: 3E02340 Introduction of Influenza Vaccine into Muscle, Percutaneous Approach (ICD-10-PCS; 2019-04-14)
DX: I11.0 Hypertensive heart disease with heart failure (principal); J96.01 Acute respiratory failure with hypoxia; E87.1 Hypo-osmolality and hyponatremia; I48.20 Chronic atrial fibrillation, unspecified; I50.33 Acute on chronic diastolic (congestive) heart failure; E11.9 Type 2 diabetes mellitus without complications; E66.9 Obesity, unspecified; E83.42 Hypomagnesemia; I27.20 Pulmonary hypertension, unspecified; Z79.899 Other long term (current) drug therapy; F10.10 Alcohol abuse, uncomplicated; Z23 Encounter for immunization; Z79.01 Long term (current) use of anticoagulants; Z79.84 Long term (current) use of oral hypoglycemic drugs; Z87.891 Personal history of nicotine dependence; Z86.010 Personal history of colon polyps
CPT/HCPCS: 36415; 71045; 80053; 83735; 83880; 84484; 85025; 85610; 93005; 96374; 99285; J1940; 51798; 80048; 82962; 90686; 93306; 93970; 93970-26; 96361; A9270-GY; G0008; J1650; J1815-GY; J3475; J7040

== ENCOUNTER 2019-05-21 12:00 | Inpatient (IN) | payer MEDICARE, OTHER ==
[2019-05-21 13:00] LABS: BLOOD UREA NITROGEN,BUN 12 mg/dL (7.0-18.0); CARBON DIOXIDE,CO2 32.3 mmol/L (21.0-32.0); GLUCOSE RANDOM 128 mg/dL (74-106)
[2019-05-21 13:06] LABS: CHLORIDE,CL 74 mmol/L (98-107); POTASSIUM,K 4.7 mmol/L (3.5-5.1)
[2019-05-21 13:11] LABS: SODIUM,NA 112 mmol/L (136-148)
[2019-05-21] MEDS ORDERED: Ondansetron 4 MG/2 ML SDV IVPUSH PRN (14:16)
[2019-05-21] MEDS ORDERED: Ondansetron 4 MG Tab.DIS PO PRN (14:16)
[2019-05-21] MEDS: Furosemide 40 MG/4 ML VIAL IVPUSH SCH (14:44)
--- NOTE | 2019-05-21 14:53 | PCM.HP.2 ---
H&P History of Present Illness - General Date of Service: 05/21/19 Admit Problem/Dx: Admission Diagnosis/Problem Admission Diagnosis/Problem Hyponatremia - History of Present Illness Initial Comments - Free Text/Narative: 63 y/o male with history of Afib on warfarin, HFpEF, chronic hyponatremia and alcohol abuse who was directly admitted from Dr. Torres's clinic for hyponatremia and CHF exacerbation. History obtained from patient and family who were in the room. Patient was recently hospitalized in April for similar complaint. Patient was found to have Na 112, BNP 700. He states he drinks about 12 pack of beer/daily. Last drink was yesterday. No history of alcohol withdrawal seizures. States he has been taking his medications as indicated, however, he did not take his lasix this morning. In addition, he admits to not following a strict sodium diet. Denies any chest pain, dyspnea, abdominal pain, dysuria, diarrhea, worsening edema. No difficulties ambulating. His family states that last Saturday he had an episode where his eyes rolled back and was forgetful. No similar events since then. No smoking or illicit drug use. Uses supplemental oxygen at home and baseline is 2 L/min, however, has gone up recently to 4 L/min. - Related Data Allergies/Adverse Reactions: Allergies Allergy/AdvReac Type Severity Reaction Status Date / Time No Known Allergies Allergy Verified 05/21/19 14:50 Home Medications: Home Meds Diltiazem HCl [Dilt-Xr] 240 mg PO DAILY 10/31/16 [History] Lisinopril 10 mg PO DAILY 12/03/18 [History] Sildenafil [Revatio] 60 mg PO DAILY PRN 12/03/18 [History] Warfarin [Coumadin] 2 mg PO DAILY 12/03/18 [History] metFORMIN [Glucophage XR] 1,000 mg PO ACBREAKFAST 12/03/18 [History] Furosemide [Lasix] 80 mg PO DAILY 04/14/19 [History] Pregabalin 75 mg PO TID PRN 05/21/19 [History] Past Medical History - Past Health History Medical/Surgical History: Denies Medical/Surgical History Other HEENT History: wears glasses, has upper and lower dentures but doesn't wear them. Patient reports he gets bleeding behind his right eye Cardiovascular History: Reports: Afib, Hypertension Respiratory History: Reports: Other (See Below) Gastrointestinal History: Reports: Colon Polyp Genitourinary History: Reports: Other (See Below) Musculoskeletal History: Reports: Fracture, Gout Other Musculoskeletal History: hx of fx toe Neurological History: Reports: None Psychiatric History: Reports: None Endocrine/Metabolic History: Reports: Diabetes, Type II Hematologic History: Reports: Anticoagulation Therapy Immunologic History: Reports: None Oncologic (Cancer) History: Reports: None Dermatologic History: Reports: None Other Dermatologic History: scabs on shoulders, - Infectious Disease History Infectious Disease History: Reports: Chicken Pox, Measles, Mumps - Past Surgical History Head Surgeries/Procedures: Reports: None Cardiovascular Surgical History: Reports: None GI Surgical History: Reports: Cholecystectomy Male Surgical History: Reports: None Musculoskeletal Surgical History: Reports: Shoulder Surgery Social & Family History - Family History Family Medical History: Noncontributory - Caffeine Use Caffeine Use: Reports: Coffee - Living Situation & Occupation Living situation: Reports: Occupation: Retired H&P Review of Systems - Review of Systems: Review Of Systems: ROS reveals no pertinent complaints other than HPI. Exam - Exam Exam: See Below - Exam Quality Assessment: Supplemental Oxygen General: Alert, Oriented, Cooperative HEENT: Conjunctiva Clear (dry oral mucosa, no dentition), Other Lungs: Other (bibasilar crackles bilaterally. No wheezing.) Cardiovascular: Regular Rate, Irregular Rhythm GI/Abdominal Exam: Normal Bowel Sounds, Soft, Non-Tender, No Distention Extremities: Other (1+ pitting edema up to knees bilaterally) Skin: Dry, Cool Neuro Extensive - Mental Status: Alert, Oriented x3 - Patient Data Lab Results Last 24 hrs: Laboratory Results - last 24 hr 05/21/19 05/21/19 05/21/19 Range/Units 12:28 12:28 12:28 WBC 10.17 (4.0-11.0) K/uL RBC 4.35 L (4.50-5.90) M/uL Hgb 12.5 L (13.0-17.0) g/dL Hct 36.2 L (38.0-50.0) % MCV 83.2 (80.0-98.0) fL MCH 28.7 (27.0-32.0) pg MCHC 34.5 (31.0-37.0) g/dL RDW Std Deviation 47.7 (28.0-62.0) fl RDW Coeff of Ijeoma 16 H (11.0-15.0) % Plt Count 92 L (150-400) K/uL MPV 10.80 (7.40-12.00) fL Neut % (Auto) 87.0 H (48.0-80.0) % Lymph % (Auto) 6.1 L (16.0-40.0) % Preble % (Auto) 5.8 (0.0-15.0) % Eos % (Auto) 0.9 (0.0-7.0) % Baso % (Auto) 0.2 (0.0-1.5) % Neut # (Auto) 8.9 H (1.4-5.7) K/uL Lymph # (Auto) 0.6 (0.6-2.4) K/uL Preble # (Auto) 0.6 (0.0-0.8) K/uL Eos # (Auto) 0.1 (0.0-0.7) K/uL Baso # (Auto) 0.0 (0.0-0.1) K/uL Nucleated RBC % 0.0 /100WBC Nucleated RBCs # 0 K/uL INR Sodium 112 L* (136-148) mmol/L Potassium 4.7 (3.5-5.1) mmol/L Chloride 74 L (98-107) mmol/L Carbon Dioxide 32.3 H (21.0-32.0) mmol/L BUN 12 (7.0-18.0) mg/dL Creatinine 0.9 (0.8-1.3) mg/dL Est Cr Clr Drug Dosing TNP Estimated GFR (MDRD) > 60.0 ml/min Glucose 128 H (74-106) mg/dL Calcium 8.9 (8.5-10.1) mg/dL Total Bilirubin 1.1 H (0.2-1.0) mg/dL AST 25 (15-37) IU/L ALT 16 (14-63) IU/L Alkaline Phosphatase 137 H (46-116) U/L B-Natriuretic Peptide 706 H (<100) PG/ML Total Protein 7.7 (6.4-8.2) g/dL Albumin 3.9 (3.4-5.0) g/dL Globulin 3.8 (2.6-4.0) g/dL Albumin/Globulin Ratio 1.0 (0.9-1.6) 05/21/19 Range/Units 12:28 WBC (4.0-11.0) K/uL RBC (4.50-5.90) M/uL Hgb (13.0-17.0) g/dL Hct (38.0-50.0) % MCV (80.0-98.0) fL MCH (27.0-32.0) pg MCHC (31.0-37.0) g/dL RDW Std Deviation (28.0-62.0) fl RDW Coeff of Ijeoma (11.0-15.0) % Plt Count (150-400) K/uL MPV (7.40-12.00) fL Neut % (Auto) (48.0-80.0) % Lymph % (Auto) (16.0-40.0) % Preble % (Auto) (0.0-15.0) % Eos % (Auto) (0.0-7.0) % Baso % (Auto) (0.0-1.5) % Neut # (Auto) (1.4-5.7) K/uL Lymph # (Auto) (0.6-2.4) K/uL Preble # (Auto) (0.0-0.8) K/uL Eos # (Auto) (0.0-0.7) K/uL Baso # (Auto) (0.0-0.1) K/uL Nucleated RBC % /100WBC Nucleated RBCs # K/uL INR 1.54 Sodium (136-148) mmol/L Potassium (3.5-5.1) mmol/L Chloride (98-107) mmol/L Carbon Dioxide (21.0-32.0) mmol/L BUN (7.0-18.0) mg/dL Creatinine (0.8-1.3) mg/dL Est Cr Clr Drug Dosing Estimated GFR (MDRD) ml/min Glucose (74-106) mg/dL Calcium (8.5-10.1) mg/dL Total Bilirubin (0.2-1.0) mg/dL AST (15-37) IU/L ALT (14-63) IU/L Alkaline Phosphatase (46-116) U/L B-Natriuretic Peptide (<100) PG/ML Total Protein (6.4-8.2) g/dL Albumin (3.4-5.0) g/dL Globulin (2.6-4.0) g/dL Albumin/Globulin Ratio (0.9-1.6) Result Diagrams: 05/21/19 12:28 05/21/19 12:28 Problem List Initiated/Reviewed/Updated: Yes Orders Last 24hrs: Active Orders 24 hr Category Date Time Status Patient Status [ADT] Routine ADT 05/21/19 14:16 Active Antiembolic Devices [RC] PER UNIT ROUTINE Care 05/21/19 14:20 Active Cardiac Monitoring [RC] CONTINUOUS Care 05/21/19 14:17 Active Intake and Output [RC] QSHIFT Care 05/21/19 14:17 Active Oxygen Therapy [RC] PRN Care 05/21/19 14:16 Active Up With Assistance [RC] ASDIRECTED Care 05/21/19 14:16 Active VTE/DVT Education [RC] PER UNIT ROUTINE Care 05/21/19 14:16 Active Vital Signs [RC] Q4H Care 05/21/19 14:16 Active [employer] [employer] Diet [DIET] Diet 05/21/19 Dinner Active Fluid Restriction [DIET] Diet 05/21/19 Dinner Active Abdomen Comp [US] Routine Exams 05/21/19 Taken Chest 2V [CR] Routine Exams 05/21/19 12:45 Taken B-TYPE NATRIURETIC PEPTIDE,BNP [CHEM] AM Lab 05/22/19 05:11 Ordered B-TYPE NATRIURETIC PEPTIDE,BNP [CHEM] AM Lab 05/23/19 05:11 Ordered BASIC METABOLIC PANEL,BMP [CHEM] Q4H Lab 05/21/19 16:00 Ordered BASIC METABOLIC PANEL,BMP [CHEM] Q4H Lab 05/21/19 20:00 Ordered BASIC METABOLIC PANEL,BMP [CHEM] Q4H Lab 05/22/19 00:00 Ordered BASIC METABOLIC PANEL,BMP [CHEM] Q4H Lab 05/22/19 04:00 Ordered CBC WITH AUTO DIFF [HEME] AM Lab 05/22/19 05:11 Ordered CBC WITH AUTO DIFF [HEME] AM Lab 05/23/19 05:11 Ordered CBC WITH AUTO DIFF [HEME] AM Lab 05/24/19 05:11 Ordered COMPREHENSIVE METABOLIC PN,CMP [CHEM] AM Lab 05/22/19 05:11 Ordered COMPREHENSIVE METABOLIC PN,CMP [CHEM] AM Lab 05/23/19 05:11 Ordered COMPREHENSIVE METABOLIC PN,CMP [CHEM] AM Lab 05/24/19 05:11 Ordered CREATININE,URINE RAND [URCHEM] Routine Lab 05/21/19 14:45 Ordered GLYCOSYLATED HEMOGLOBIN,HGBA1C [CHEM] Routine Lab 05/21/19 14:29 Ordered LIPID PANEL [CHEM] AM Lab 05/22/19 05:11 Ordered MAGNESIUM [CHEM] Routine Lab 05/21/19 12:28 Received POTASSIUM,URINE RANDOM [URCHEM] Routine Lab 05/21/19 14:45 Ordered SODIUM,URINE RANDOM [URCHEM] Routine Lab 05/21/19 14:45 Ordered TSH [CHEM] Routine Lab 05/21/19 12:28 Received UA RFX VIRGIE AND CULT IF INDIC [URIN] Routine Lab 05/21/19 14:32 Ordered UREA NITROGEN, URINE Routine Lab 05/21/19 14:45 Ordered Diltiazem Med 05/22/19 09:00 Ordered 240 mg PO DAILY Furosemide [Lasix] Med 05/21/19 14:30 Active 40 mg IVPUSH Q12H Lisinopril [Prinivil] Med 05/22/19 09:00 Ordered 10 mg PO DAILY Ondansetron [Zofran ODT] Med 05/21/19 14:16 Active 4 mg PO Q4H PRN Ondansetron [Zofran] Med 05/21/19 14:16 Active 4 mg IVPUSH Q4H PRN Warfarin [Coumadin] Med 05/22/19 09:00 Ordered 2 mg PO DAILY Sequential Compression Device [OM.PC] Per Unit Routine Oth 05/21/19 14:17 Ordered Resuscitation Status Routine Resus Stat 05/21/19 14:16 Ordered Medication Orders Furosemide (Lasix) 40 mg IVPUSH Q12H JADEN Last Admin: 05/21/19 14:44 Dose: 40 mg Lisinopril (Prinivil) 10 mg PO DAILY JADEN Non-Formulary Medication (Diltiazem) 240 mg PO DAILY JADEN Ondansetron HCl (Zofran Odt) 4 mg PO Q4H PRN PRN Reason: nausea, able to take PO Ondansetron HCl (Zofran) 4 mg IVPUSH Q4H PRN PRN Reason: Nausea Warfarin Sodium (Coumadin) 2 mg PO DAILY [facility] Assessment/Plan Comment:: A: 1. Chronic hyponatremia 2. Acute CHF exacerbation with EF 55% 3. Normocytic anemia 4. Thrombocytopenia 5. Hypomagnesemia 6. Right pleural effusion 7. Alcohol abuse 8. Medical non-compliance P: 1. Hyponatremia-seems to be chronic in nature. Likely secondary to his alcohol consumption on top of CHF. Will fluid restrict 1.5 L/day. BMP Q4H. Urine studies pending. 2. Acute CHF exacerbation- will start lasix 40 mg IV Q12H per Dr. Torres's recommendations. Telemetry, fluid restriction. strict I/O's. daily weights. 3. Normocytic anemia- likely 2/2 to alcohol induced bone marrow suppression. Will check hemoccult. 4. Hypomagnesemia- replace with MgS 2g IV once. recheck tomorrow. 5. Alcohol abuse- will start CIWA monitoring and Ativan PRN. Dispo: 2-3 days.
[2019-05-21] MEDS ORDERED: LORazepam 2 MG/ML SDV IVPUSH PRN ×2 (14:56→17:56)
[2019-05-21] MEDS ORDERED: Folic Acid 1 MG Tab PO ONE (14:57)
[2019-05-21] MEDS ORDERED: Thiamine 100 MG Tab PO ONE (14:57)
[2019-05-21] MEDS ORDERED: Magnesium Sulfate/Water 2 GM in Premix Bag 1 BAG IV ONE (15:26)
[2019-05-21 16:27] LABS: BLOOD UREA NITROGEN,BUN 11 mg/dL (7.0-18.0); CARBON DIOXIDE,CO2 34.5 mmol/L (21.0-32.0); CHLORIDE,CL 76 mmol/L (98-107); GLUCOSE RANDOM 121 mg/dL (74-106); POTASSIUM,K 4.4 mmol/L (3.5-5.1)
[2019-05-21 16:31] LABS: HEMOGLOBIN A1C 6.3 % (4.5-6.2)
[2019-05-21 16:35] LABS: SODIUM,NA 114 mmol/L (136-148)
--- NOTE | 2019-05-21 18:30 | CR ---
Chest: Two views of the chest are obtained. Comparison: Prior chest x-ray 04/14/19. Small right-sided pleural effusion is seen. Increased parenchymal density is also noted within the right base either due to atelectasis or pneumonia. Heart is slightly enlarged. Pulmonary vessels are felt to be mildly congested. Bony structures appear within normal limits. Impression: 1. Findings suspicious for mild CHF. 2. Atelectasis or pneumonia within the right lung base. Diagnostic code #3 MTDD
--- NOTE | 2019-05-21 18:31 | US ---
Abdominal ultrasound: Multiple real-time images of the abdomen were obtained. Comparison: Previous abdominal and pelvic CT exam of 06/21/15. Liver shows no focal parenchymal abnormality. No biliary duct dilatation is seen. Previous cholecystectomy is noted. Pancreas is incompletely seen. Visualized portions of the pancreas are within normal limits. Aorta is incompletely seen. Visualized portions of the aorta show no aneurysm. Kidneys show no hydronephrosis or mass. Right kidney is atrophic measuring 4.4 cm in length. Left kidney shows slight compensatory hypertrophy with length of 15.6 cm. Spleen size is normal. Small right-sided pleural effusion is seen. Impression: 1. Atrophic right kidney. 2. Small right-sided pleural effusion. 3. No additional abnormality is appreciated on abdominal ultrasound exam. Diagnostic code #3 MTDD
[2019-05-21 20:57] LABS: BLOOD UREA NITROGEN,BUN 11 mg/dL (7.0-18.0); CHLORIDE,CL 80 mmol/L (98-107); POTASSIUM,K 3.8 mmol/L (3.5-5.1)
[2019-05-21 21:04] LABS: CARBON DIOXIDE,CO2 35.5 mmol/L (21.0-32.0); GLUCOSE RANDOM 104 mg/dL (74-106)
[2019-05-21 21:08] LABS: SODIUM,NA 118 mmol/L (136-148)
[2019-05-22] MEDS: Furosemide 40 MG/4 ML VIAL IVPUSH SCH (02:06)
[2019-05-22 04:32] LABS: BLOOD UREA NITROGEN,BUN 10 mg/dL (7.0-18.0); CARBON DIOXIDE,CO2 36.1 mmol/L (21.0-32.0); CHLORIDE,CL 83 mmol/L (98-107); GLUCOSE RANDOM 115 mg/dL (74-106); POTASSIUM,K 3.9 mmol/L (3.5-5.1); SODIUM,NA 122 mmol/L (136-148)
[2019-05-22] MEDS ORDERED: Magnesium Sulfate/Water 2 GM in Premix Bag 1 BAG IV ONE (05:37)
--- NOTE | 2019-05-22 05:55 | PN ---
THC Physician - Brief Progress [id number]/08/2019 05:43[facility] rekha CarolineEPI - JANETH (DEMETRIO) - TINA KELLOGGDate of Service 05/22/2019 05:43HPI/Milagro nts of Note Overnight events.Hponatremia - followed Na levels every 4 hours. Now is overcorrecting (c orrected by 10 mmol in 16 hours).Ordered D5W at 100 mL/hr.Continue following Na levels q4h.Goal na le mitra 120 at 12:30 pm on 05/22.Interventions Intermediate-Electrolyte abnormality - evaluation and manag ement
[2019-05-22] MEDS: Dextrose 5% in Water 1,000 ML IV SCH ×2 (06:00→16:42)
[2019-05-22] MEDS: Insulin Aspart 100 Units/ML 3 ML Pen SUBCUT SCH ×3 (06:48→18:08)
[2019-05-22] MEDS ORDERED: Lisinopril 5 MG Tab PO SCH (09:00)
[2019-05-22] MEDS ORDERED: Diltiazem 120 MG Cap.CD PO SCH ×2 (09:00→09:27)
--- NOTE | 2019-05-22 10:45 | PCM.PN ---
- General Info Date of Service: 05/22/19 Subjective Update: 63 y/o male admitted for severe hyponatremia and CHF exacerbation. No chest pain , dyspnea. States he feels good. No nausea or vomiting. - Patient Data Vitals - Most Recent: Last Vital Signs Temp 36.3 C 05/22/19 10:00 Pulse 72 05/22/19 10:02 Resp 17 05/22/19 10:00 BP 132/54 L 05/22/19 10:02 Pulse Ox 94 L 05/22/19 10:00 Weight - Most Recent: 87 kg I&O - Last 24 Hours: Intake & Output 05/21/19 05/22/19 05/22/19 22:59 06:59 14:59 Intake Total 350 50 Output Total 1926 0233 Balance -1600 -2425 Lab Results Last 24 Hours: Laboratory Results - last 24 hr 05/21/19 05/21/19 05/21/19 Range/Units 12:28 12:28 12:28 WBC 10.17 (4.0-11.0) K/uL RBC 4.35 L (4.50-5.90) M/uL Hgb 12.5 L (13.0-17.0) g/dL Hct 36.2 L (38.0-50.0) % MCV 83.2 (80.0-98.0) fL MCH 28.7 (27.0-32.0) pg MCHC 34.5 (31.0-37.0) g/dL RDW Std Deviation 47.7 (28.0-62.0) fl RDW Coeff of Ijeoma 16 H (11.0-15.0) % Plt Count 92 L (150-400) K/uL MPV 10.80 (7.40-12.00) fL Neut % (Auto) 87.0 H (48.0-80.0) % Lymph % (Auto) 6.1 L (16.0-40.0) % Sanders % (Auto) 5.8 (0.0-15.0) % Eos % (Auto) 0.9 (0.0-7.0) % Baso % (Auto) 0.2 (0.0-1.5) % Neut # (Auto) 8.9 H (1.4-5.7) K/uL Lymph # (Auto) 0.6 (0.6-2.4) K/uL Sanders # (Auto) 0.6 (0.0-0.8) K/uL Eos # (Auto) 0.1 (0.0-0.7) K/uL Baso # (Auto) 0.0 (0.0-0.1) K/uL Nucleated RBC % 0.0 /100WBC Nucleated RBCs # 0 K/uL INR Sodium 112 L* (136-148) mmol/L Potassium 4.7 (3.5-5.1) mmol/L Chloride 74 L (98-107) mmol/L Carbon Dioxide 32.3 H (21.0-32.0) mmol/L BUN 12 (7.0-18.0) mg/dL Creatinine 0.9 (0.8-1.3) mg/dL Est Cr Clr Drug Dosing TNP Estimated GFR (MDRD) > 60.0 ml/min Glucose 128 H (74-106) mg/dL POC Glucose (60-110) mg/dL Hemoglobin A1c (4.5-6.2) % Calcium 8.9 (8.5-10.1) mg/dL Magnesium (1.8-2.4) mg/dL Iron (50-175) ug/dL TIBC (250-450) ug/dL % Saturation (20-55) % Ferritin (26-388) ng/mL Total Bilirubin 1.1 H (0.2-1.0) mg/dL AST 25 (15-37) IU/L ALT 16 (14-63) IU/L Alkaline Phosphatase 137 H (46-116) U/L B-Natriuretic Peptide 706 H (<100) PG/ML Total Protein 7.7 (6.4-8.2) g/dL Albumin 3.9 (3.4-5.0) g/dL Globulin 3.8 (2.6-4.0) g/dL Albumin/Globulin Ratio 1.0 (0.9-1.6) Triglycerides (0-200) mg/dL Cholesterol (50-200) mg/dL LDL Cholesterol, Calc (60-180) mg/dL VLDL Cholesterol (5-55) mg/dL HDL Cholesterol (40-60) mg/dL Cholesterol/HDL Ratio (3.3-6.0) TSH 3rd Generation (0.36-3.74) uIU/mL Urine Color Urine Appearance Urine pH (5.0-8.0) Ur Specific [place] (1.001-1.035) Urine Protein (NEGATIVE) mg/dL Urine Glucose (UA) (NEGATIVE) mg/dL Urine Ketones (NEGATIVE) mg/dL Urine Occult Blood (NEGATIVE) Urine Nitrite (NEGATIVE) Urine Bilirubin (NEGATIVE) Urine Urobilinogen (<2.0) EU/dL Ur Leukocyte Esterase (NEGATIVE) Urine RBC (0-2/HPF) Urine WBC (0-5/HPF) Ur Epithelial Cells (NONE-FEW) Urine Bacteria (NEGATIVE) Ur Random Creatinine mg/dL Ur Random Sodium (40.0-220.0) mmol/L Ur Random Potassium mmol/L 05/21/19 05/21/19 05/21/19 Range/Units 12:28 12:28 12:28 WBC (4.0-11.0) K/uL RBC (4.50-5.90) M/uL Hgb (13.0-17.0) g/dL Hct (38.0-50.0) % MCV (80.0-98.0) fL MCH (27.0-32.0) pg MCHC (31.0-37.0) g/dL RDW Std Deviation (28.0-62.0) fl RDW Coeff of Ijeoma (11.0-15.0) % Plt Count (150-400) K/uL MPV (7.40-12.00) fL Neut % (Auto) (48.0-80.0) % Lymph % (Auto) (16.0-40.0) % Sanders % (Auto) (0.0-15.0) % Eos % (Auto) (0.0-7.0) % Baso % (Auto) (0.0-1.5) % Neut # (Auto) (1.4-5.7) K/uL Lymph # (Auto) (0.6-2.4) K/uL Sanders # (Auto) (0.0-0.8) K/uL Eos # (Auto) (0.0-0.7) K/uL Baso # (Auto) (0.0-0.1) K/uL Nucleated RBC % /100WBC Nucleated RBCs # K/uL INR 1.54 Sodium (136-148) mmol/L Potassium (3.5-5.1) mmol/L Chloride (98-107) mmol/L Carbon Dioxide (21.0-32.0) mmol/L BUN (7.0-18.0) mg/dL Creatinine (0.8-1.3) mg/dL Est Cr Clr Drug Dosing Estimated GFR (MDRD) ml/min Glucose (74-106) mg/dL POC Glucose (60-110) mg/dL Hemoglobin A1c (4.5-6.2) % Calcium (8.5-10.1) mg/dL Magnesium 1.3 L (1.8-2.4) mg/dL Iron 106 (50-175) ug/dL TIBC 500 H (250-450) ug/dL % Saturation 21.20 (20-55) % Ferritin 105 (26-388) ng/mL Total Bilirubin (0.2-1.0) mg/dL AST (15-37) IU/L ALT (14-63) IU/L Alkaline Phosphatase (46-116) U/L B-Natriuretic Peptide (<100) PG/ML Total Protein (6.4-8.2) g/dL Albumin (3.4-5.0) g/dL Globulin (2.6-4.0) g/dL Albumin/Globulin Ratio (0.9-1.6) Triglycerides (0-200) mg/dL Cholesterol (50-200) mg/dL LDL Cholesterol, Calc (60-180) mg/dL VLDL Cholesterol (5-55) mg/dL HDL Cholesterol (40-60) mg/dL Cholesterol/HDL Ratio (3.3-6.0) TSH 3rd Generation 1.39 (0.36-3.74) uIU/mL Urine Color Urine Appearance Urine pH (5.0-8.0) Ur Specific [place] (1.001-1.035) Urine Protein (NEGATIVE) mg/dL Urine Glucose (UA) (NEGATIVE) mg/dL Urine Ketones (NEGATIVE) mg/dL Urine Occult Blood (NEGATIVE) Urine Nitrite (NEGATIVE) Urine Bilirubin (NEGATIVE) Urine Urobilinogen (<2.0) EU/dL Ur Leukocyte Esterase (NEGATIVE) Urine RBC (0-2/HPF) Urine WBC (0-5/HPF) Ur Epithelial Cells (NONE-FEW) Urine Bacteria (NEGATIVE) Ur Random Creatinine mg/dL Ur Random Sodium (40.0-220.0) mmol/L Ur Random Potassium mmol/L 05/21/19 05/21/19 05/21/19 Range/Units 15:15 15:15 16:07 WBC (4.0-11.0) K/uL RBC (4.50-5.90) M/uL Hgb (13.0-17.0) g/dL Hct (38.0-50.0) % MCV (80.0-98.0) fL MCH (27.0-32.0) pg MCHC (31.0-37.0) g/dL RDW Std Deviation (28.0-62.0) fl RDW Coeff of [place]je[place] (11.0-15.0) % Plt Count (150-400) K/uL MPV (7.40-12.00) fL Neut % (Auto) (48.0-80.0) % Lymph % (Auto) (16.0-40.0) % Sanders % (Auto) (0.0-15.0) % Eos % (Auto) (0.0-7.0) % Baso % (Auto) (0.0-1.5) % Neut # (Auto) (1.4-5.7) K/uL Lymph # (Auto) (0.6-2.4) K/uL Sanders # (Auto) (0.0-0.8) K/uL Eos # (Auto) (0.0-0.7) K/uL Baso # (Auto) (0.0-0.1) K/uL Nucleated RBC % /100WBC Nucleated RBCs # K/uL INR Sodium 114 L* (136-148) mmol/L Potassium 4.4 (3.5-5.1) mmol/L Chloride 76 L (98-107) mmol/L Carbon Dioxide 34.5 H (21.0-32.0) mmol/L BUN 11 (7.0-18.0) mg/dL Creatinine 0.8 (0.8-1.3) mg/dL Est Cr Clr Drug Dosing 91.44 Estimated GFR (MDRD) > 60.0 ml/min Glucose 121 H (74-106) mg/dL POC Glucose (60-110) mg/dL Hemoglobin A1c (4.5-6.2) % Calcium 8.8 (8.5-10.1) mg/dL Magnesium (1.8-2.4) mg/dL Iron (50-175) ug/dL TIBC (250-450) ug/dL % Saturation (20-55) % Ferritin (26-388) ng/mL Total Bilirubin (0.2-1.0) mg/dL AST (15-37) IU/L ALT (14-63) IU/L Alkaline Phosphatase (46-116) U/L B-Natriuretic Peptide (<100) PG/ML Total Protein (6.4-8.2) g/dL Albumin (3.4-5.0) g/dL Globulin (2.6-4.0) g/dL Albumin/Globulin Ratio (0.9-1.6) Triglycerides (0-200) mg/dL Cholesterol (50-200) mg/dL LDL Cholesterol, Calc (60-180) mg/dL VLDL Cholesterol (5-55) mg/dL HDL Cholesterol (40-60) mg/dL Cholesterol/HDL Ratio (3.3-6.0) TSH 3rd Generation (0.36-3.74) uIU/mL Urine Color YELLOW Urine Appearance CLEAR Urine pH 6.5 (5.0-8.0) Ur Specific [place] <= 1.005 (1.001-1.035) Urine Protein NEGATIVE (NEGATIVE) mg/dL Urine Glucose (UA) NEGATIVE (NEGATIVE) mg/dL Urine Ketones NEGATIVE (NEGATIVE) mg/dL Urine Occult Blood TRACE-LYSED H (NEGATIVE) Urine Nitrite NEGATIVE (NEGATIVE) Urine Bilirubin NEGATIVE (NEGATIVE) Urine Urobilinogen 0.2 (<2.0) EU/dL Ur Leukocyte Esterase SMALL H (NEGATIVE) Urine RBC 0-1 (0-2/HPF) Urine WBC 0-2 (0-5/HPF) Ur Epithelial Cells RARE (NONE-FEW) Urine Bacteria RARE (NEGATIVE) Ur Random Creatinine 8.6 mg/dL Ur Random Sodium 33.0 L (40.0-220.0) mmol/L Ur Random Potassium 17.0 mmol/L 05/21/19 05/21/19 05/21/19 Range/Units 16:07 20:29 20:32 WBC (4.0-11.0) K/uL RBC (4.50-5.90) M/uL Hgb (13.0-17.0) g/dL Hct (38.0-50.0) % MCV (80.0-98.0) fL MCH (27.0-32.0) pg MCHC (31.0-37.0) g/dL RDW Std Deviation (28.0-62.0) fl RDW Coeff of Ijeoma (11.0-15.0) % Plt Count (150-400) K/uL MPV (7.40-12.00) fL Neut % (Auto) (48.0-80.0) % Lymph % (Auto) (16.0-40.0) % Sanders % (Auto) (0.0-15.0) % Eos % (Auto) (0.0-7.0) % Baso % (Auto) (0.0-1.5) % Neut # (Auto) (1.4-5.7) K/uL Lymph # (Auto) (0.6-2.4) K/uL Sanders # (Auto) (0.0-0.8) K/uL Eos # (Auto) (0.0-0.7) K/uL Baso # (Auto) (0.0-0.1) K/uL Nucleated RBC % /100WBC Nucleated RBCs # K/uL INR Sodium 118 L* (136-148) mmol/L Potassium 3.8 (3.5-5.1) mmol/L Chloride 80 L (98-107) mmol/L Carbon Dioxide 35.5 H (21.0-32.0) mmol/L BUN 11 (7.0-18.0) mg/dL Creatinine 0.9 (0.8-1.3) mg/dL Est Cr Clr Drug Dosing 81.28 Estimated GFR (MDRD) > 60.0 ml/min Glucose 104 (74-106) mg/dL POC Glucose 96 (60-110) mg/dL Hemoglobin A1c 6.3 H (4.5-6.2) % Calcium 8.6 (8.5-10.1) mg/dL Magnesium (1.8-2.4) mg/dL Iron (50-175) ug/dL TIBC (250-450) ug/dL % Saturation (20-55) % Ferritin (26-388) ng/mL Total Bilirubin (0.2-1.0) mg/dL AST (15-37) IU/L ALT (14-63) IU/L Alkaline Phosphatase (46-116) U/L B-Natriuretic Peptide (<100) PG/ML Total Protein (6.4-8.2) g/dL Albumin (3.4-5.0) g/dL Globulin (2.6-4.0) g/dL Albumin/Globulin Ratio (0.9-1.6) Triglycerides (0-200) mg/dL Cholesterol (50-200) mg/dL LDL Cholesterol, Calc (60-180) mg/dL VLDL Cholesterol (5-55) mg/dL HDL Cholesterol (40-60) mg/dL Cholesterol/HDL Ratio (3.3-6.0) TSH 3rd Generation (0.36-3.74) uIU/mL Urine Color Urine Appearance Urine pH (5.0-8.0) Ur Specific [place] (1.001-1.035) Urine Protein (NEGATIVE) mg/dL Urine Glucose (UA) (NEGATIVE) mg/dL Urine Ketones (NEGATIVE) mg/dL Urine Occult Blood (NEGATIVE) Urine Nitrite (NEGATIVE) Urine Bilirubin (NEGATIVE) Urine Urobilinogen (<2.0) EU/dL Ur Leukocyte Esterase (NEGATIVE) Urine RBC (0-2/HPF) Urine WBC (0-5/HPF) Ur Epithelial Cells (NONE-FEW) Urine Bacteria (NEGATIVE) Ur Random Creatinine mg/dL Ur Random Sodium (40.0-220.0) mmol/L Ur Random Potassium mmol/L 05/22/19 05/22/19 05/22/19 Range/Units 00:10 04:05 04:05 WBC 7.25 (4.0-11.0) K/uL RBC 3.95 L (4.50-5.90) M/uL Hgb 11.5 L (13.0-17.0) g/dL Hct 32.7 L (38.0-50.0) % MCV 82.8 (80.0-98.0) fL MCH 29.1 (27.0-32.0) pg MCHC 35.2 (31.0-37.0) g/dL RDW Std Deviation 47.9 (28.0-62.0) fl RDW Coeff of Ijeoma 16 H (11.0-15.0) % Plt Count 86 L (150-400) K/uL MPV 10.30 (7.40-12.00) fL Neut % (Auto) 80.6 H (48.0-80.0) % Lymph % (Auto) 7.9 L (16.0-40.0) % Sanders % (Auto) 9.1 (0.0-15.0) % Eos % (Auto) 2.1 (0.0-7.0) % Baso % (Auto) 0.3 (0.0-1.5) % Neut # (Auto) 5.9 H (1.4-5.7) K/uL Lymph # (Auto) 0.6 (0.6-2.4) K/uL Sanders # (Auto) 0.7 (0.0-0.8) K/uL Eos # (Auto) 0.2 (0.0-0.7) K/uL Baso # (Auto) 0.0 (0.0-0.1) K/uL Nucleated RBC % 0.0 /100WBC Nucleated RBCs # 0 K/uL INR Sodium 119 L* 122 L (136-148) mmol/L Potassium 3.9 (3.5-5.1) mmol/L Chloride 83 L (98-107) mmol/L Carbon Dioxide 36.1 H (21.0-32.0) mmol/L BUN 10 (7.0-18.0) mg/dL Creatinine 0.7 L (0.8-1.3) mg/dL Est Cr Clr Drug Dosing 104.50 Estimated GFR (MDRD) > 60.0 ml/min Glucose 115 H (74-106) mg/dL POC Glucose (60-110) mg/dL Hemoglobin A1c (4.5-6.2) % Calcium 8.7 (8.5-10.1) mg/dL Magnesium 1.5 L (1.8-2.4) mg/dL Iron (50-175) ug/dL TIBC (250-450) ug/dL % Saturation (20-55) % Ferritin (26-388) ng/mL Total Bilirubin 0.9 (0.2-1.0) mg/dL AST 20 (15-37) IU/L ALT 14 (14-63) IU/L Alkaline Phosphatase 120 H (46-116) U/L B-Natriuretic Peptide (<100) PG/ML Total Protein 6.8 (6.4-8.2) g/dL Albumin 3.4 (3.4-5.0) g/dL Globulin 3.4 (2.6-4.0) g/dL Albumin/Globulin Ratio 1.0 (0.9-1.6) Triglycerides 51 (0-200) mg/dL Cholesterol 134 (50-200) mg/dL LDL Cholesterol, Calc 57 L (60-180) mg/dL VLDL Cholesterol 10 (5-55) mg/dL HDL Cholesterol 67 H (40-60) mg/dL Cholesterol/HDL Ratio 2.0 L (3.3-6.0) TSH 3rd Generation (0.36-3.74) uIU/mL Urine Color Urine Appearance Urine pH (5.0-8.0) Ur Specific [place] (1.001-1.035) Urine Protein (NEGATIVE) mg/dL Urine Glucose (UA) (NEGATIVE) mg/dL Urine Ketones (NEGATIVE) mg/dL Urine Occult Blood (NEGATIVE) Urine Nitrite (NEGATIVE) Urine Bilirubin (NEGATIVE) Urine Urobilinogen (<2.0) EU/dL Ur Leukocyte Esterase (NEGATIVE) Urine RBC (0-2/HPF) Urine WBC (0-5/HPF) Ur Epithelial Cells (NONE-FEW) Urine Bacteria (NEGATIVE) Ur Random Creatinine mg/dL Ur Random Sodium (40.0-220.0) mmol/L Ur Random Potassium mmol/L 05/22/19 05/22/19 05/22/19 Range/Units 04:05 05:56 08:23 WBC (4.0-11.0) K/uL RBC (4.50-5.90) M/uL Hgb (13.0-17.0) g/dL Hct (38.0-50.0) % MCV (80.0-98.0) fL MCH (27.0-32.0) pg MCHC (31.0-37.0) g/dL RDW Std Deviation (28.0-62.0) fl RDW Coeff of [place]je[place] (11.0-15.0) % Plt Count (150-400) K/uL MPV (7.40-12.00) fL Neut % (Auto) (48.0-80.0) % Lymph % (Auto) (16.0-40.0) % Sanders % (Auto) (0.0-15.0) % Eos % (Auto) (0.0-7.0) % Baso % (Auto) (0.0-1.5) % Neut # (Auto) (1.4-5.7) K/uL Lymph # (Auto) (0.6-2.4) K/uL Sanders # (Auto) (0.0-0.8) K/uL Eos # (Auto) (0.0-0.7) K/uL Baso # (Auto) (0.0-0.1) K/uL Nucleated RBC % /100WBC Nucleated RBCs # K/uL INR 1.52 Sodium 122 L (136-148) mmol/L Potassium (3.5-5.1) mmol/L Chloride (98-107) mmol/L Carbon Dioxide (21.0-32.0) mmol/L BUN (7.0-18.0) mg/dL Creatinine (0.8-1.3) mg/dL Est Cr Clr Drug Dosing Estimated GFR (MDRD) ml/min Glucose (74-106) mg/dL POC Glucose 110 (60-110) mg/dL Hemoglobin A1c (4.5-6.2) % Calcium (8.5-10.1) mg/dL Magnesium (1.8-2.4) mg/dL Iron (50-175) ug/dL TIBC (250-450) ug/dL % Saturation (20-55) % Ferritin (26-388) ng/mL Total Bilirubin (0.2-1.0) mg/dL AST (15-37) IU/L ALT (14-63) IU/L Alkaline Phosphatase (46-116) U/L B-Natriuretic Peptide (<100) PG/ML Total Protein (6.4-8.2) g/dL Albumin (3.4-5.0) g/dL Globulin (2.6-4.0) g/dL Albumin/Globulin Ratio (0.9-1.6) Triglycerides (0-200) mg/dL Cholesterol (50-200) mg/dL LDL Cholesterol, Calc (60-180) mg/dL VLDL Cholesterol (5-55) mg/dL HDL Cholesterol (40-60) mg/dL Cholesterol/HDL Ratio (3.3-6.0) TSH 3rd Generation (0.36-3.74) uIU/mL Urine Color Urine Appearance Urine pH (5.0-8.0) Ur Specific [place] (1.001-1.035) Urine Protein (NEGATIVE) mg/dL Urine Glucose (UA) (NEGATIVE) mg/dL Urine Ketones (NEGATIVE) mg/dL Urine Occult Blood (NEGATIVE) Urine Nitrite (NEGATIVE) Urine Bilirubin (NEGATIVE) Urine Urobilinogen (<2.0) EU/dL Ur Leukocyte Esterase (NEGATIVE) Urine RBC (0-2/HPF) Urine WBC (0-5/HPF) Ur Epithelial Cells (NONE-FEW) Urine Bacteria (NEGATIVE) Ur Random Creatinine mg/dL Ur Random Sodium (40.0-220.0) mmol/L Ur Random Potassium mmol/L Isaiah Results Last 24 Hours: Microbiology 05/22/19 09:50 Stool Occult Blood (ISAIAH) - Final Stool / Feces NEGATIVE OCCULT BLOOD REFERENCE RANGE: NEGATIVE Med Orders - Current: Current Medications Diltiazem HCl (Cardizem Cd) 240 mg PO DAILY [facility] Last Admin: 05/22/19 10:02 Dose: 240 mg Folic Acid (Folic Acid) 1 mg PO BEDTIME [facility] Furosemide (Lasix) 40 mg IVPUSH Q12H [facility] Last Admin: 05/22/19 02:06 Dose: Not Given Dextrose/Water (Dextrose 5% In Water) 1,000 mls @ 100 mls/hr IV ASDIRECTED [facility] Last Admin: 05/22/19 06:00 Dose: 100 mls/hr Insulin Aspart (Novolog) 0 unit SUBCUT TIDAC [facility]; Protocol Last Admin: 05/22/19 06:48 Dose: Not Given Lorazepam (Ativan) 0 mg IVPUSH Q4H PRN; Protocol PRN Reason: Withdrawal Symptoms Lorazepam (Ativan) 1 mg IVPUSH ONETIME PRN PRN Reason: Seizures Ondansetron HCl (Zofran Odt) 4 mg PO Q4H PRN PRN Reason: nausea, able to take PO Ondansetron HCl (Zofran) 4 mg IVPUSH Q4H PRN PRN Reason: Nausea Thiamine HCl (Vitamin B-1) 100 mg PO BEDTIME [facility] Warfarin Sodium (Coumadin) 2 mg PO DAILY [facility] Last Admin: 05/22/19 08:39 Dose: 2 mg Warfarin Sodium (Coumadin Ask) 1 each PO DAILY [facility] Last Admin: 05/22/19 08:39 Dose: 1 each Discontinued Medications Diltiazem HCl (Cardizem Cd) 240 mg PO DAILY [facility] Folic Acid (Folic Acid) 1 mg PO ONETIME ONE Stop: 05/21/19 14:58 Last Admin: 05/21/19 16:26 Dose: 1 mg Magnesium Sulfate 2 gm/ Premix 50 mls @ 50 mls/hr IV ONETIME ONE Stop: 05/21/19 16:25 Last Admin: 05/21/19 16:29 Dose: 50 mls/hr Magnesium Sulfate 2 gm/ Premix 50 mls @ 50 mls/hr IV ONETIME ONE Stop: 05/22/19 06:36 Last Admin: 05/22/19 06:05 Dose: 50 mls/hr Lisinopril (Prinivil) 10 mg PO DAILY [facility] Thiamine HCl (Vitamin B-1) 100 mg PO ONETIME ONE Stop: 05/21/19 14:58 Last Admin: 05/21/19 16:27 Dose: 100 mg - Exam General: Alert, Oriented, Cooperative, No Acute Distress Lungs: Other (bibasilar crackles greater on left.) Cardiovascular: Regular Rate, Irregular Rhythm GI/Abdominal Exam: Normal Bowel Sounds, Soft, Non-Tender, No Distention Extremities: Normal Inspection, No Pedal Edema Skin: Warm, Dry - Problem List Review Problem List Initiated/Reviewed/Updated: Yes - My Orders Last 24 Hours: My Active Orders 05/21/19 14:16 Patient Status [ADT] Routine Oxygen Therapy [RC] PRN Up With Assistance [RC] ASDIRECTED VTE/DVT Education [RC] PER UNIT ROUTINE Ondansetron [Zofran ODT] 4 mg PO Q4H PRN Ondansetron [Zofran] 4 mg IVPUSH Q4H PRN Resuscitation Status Routine 05/21/19 14:17 Cardiac Monitoring [RC] Q8H Sequential Compression Device [OM.PC] Per Unit Routine 05/21/19 14:20 Antiembolic Devices [RC] PER UNIT ROUTINE 05/21/19 14:30 Furosemide [Lasix] 40 mg IVPUSH Q12H 05/21/19 14:56 CIWAA Assessment [RC] Q4H LORazepam [Ativan] See Protocol IVPUSH Q4H PRN 05/21/19 15:15 CULTURE URINE [RM] Routine UREA NITROGEN, URINE Routine 05/21/19 17:10 Accu Check [Blood Glucose Check, Bedside] [] QIDACANDBED 05/21/19 17:56 LORazepam [Ativan] 1 mg IVPUSH ONETIME PRN 05/22/19 04:05 B-TYPE NATRIURETIC PEPTIDE,BNP [CHEM] AM 05/22/19 07:30 Insulin Aspart [NovoLOG] See Protocol SUBCUT TIDAC 05/22/19 08:58 EKG 12 Lead [EKG Documentation Completion] [RC] ROUTINE 05/22/19 09:00 Warfarin Dosing [Coumadin Ask] 1 each PO DAILY Warfarin [Coumadin] 2 mg PO DAILY 05/22/19 21:00 Folic Acid 1 mg PO BEDTIME Thiamine [Vitamin B-1] 100 mg PO BEDTIME 05/22/19 Breakfast Heart Healthy Diet [DIET] 05/23/19 05:11 B-TYPE NATRIURETIC PEPTIDE,BNP [CHEM] AM CBC WITH AUTO DIFF [HEME] AM COMPREHENSIVE METABOLIC PN,CMP [CHEM] AM INR,PT,PROTHROMBIN TIME [COAG] AM MAGNESIUM [CHEM] AM 05/24/19 05:11 CBC WITH AUTO DIFF [HEME] AM COMPREHENSIVE METABOLIC PN,CMP [CHEM] AM - Plan Plan:: A: 1. acute on chronic hyponatremia, improving 2. Acute CHF exacerbation with EF 55% 3. Afib, rate controlled 4. Hypomagnesemia 5. Alcohol abuse P: 1. severe hyponatremia, improving. eICU started D5W due to overcorrection of Na. Will continue to monitor Na level q4H per eICU. 2. Acute CHF exacerbation. Will hold lasix due to hyponatremia. Seems to be at baseline with good urine output. 3. afib, rate controlled. Continue warfarin per pharmacy dosing. 4. Hypomagnesemia- replaced. Will recheck tomorrow. 5. Alcohol abuse- CIWA 0. For now will continue with CIWA and Ativan PRN for withdrawal symptoms. Dispo: Likely dc in 1-2 days.
--- NOTE | 2019-05-22 11:31 | PN ---
THC Physician - Brief Progress ArchLQPCIENIW38/08/2019 09:57[facility] Caroline Field, [place] - CARYN (BARRIEN) - TINA KELLOGGDate of Service 05/22/2019 09:57HPI/Milagro nts of Note Brief eICU NoteEMR reviewed.63 yo male ho afib on warfarin, Etohism, chronic hyponatremia , HFpEF 55%, O2 at home admitted from Cardiology clinic for CHF exacerbation and hyponatremia without mental status changes. Hyponatremia is attributed to polydipsia (beer). He is on fluid restriction a nd is being diuresed. Na on admit was 112, being checked q4. Na this morning was 122 so patient was s tarted on D5W. Patient is on CIWA, has Ativan prn.Patient seen on camera: sitting up in chair on NC in NAD36.3 67 111/45 16 93% on 4l; I/O 400/4425Recommend:Patient has diuresed quite briskly, cont to follow lytes q4 and replete K, Mg as needed. Follow creat, has not changed.Goal Na at 12:30 today is 120-122, can stop D5W if Na is in that range with next draw. Continue to correct at <=10 every 24 h ours.Proph: warfarinPlease call us if needed.Thank you for allowing us to participate in your patient 's care.Interventions Major-Electrolyte abnormality - evaluation and management
--- NOTE | 2019-05-22 11:31 | PN ---
THC Physician - Brief Progress VvcwNYOXEQEBX64/07/2019 18:04[facility] Caroline Field, EPI - JANETH (BARRIEN) - TINA KELLOGGDate of Service 05/21/2019 18:04HPI/Milagro nts of Note Brief eICU Admit NoteEMR reviewed, case discussed with admitting physician.63 yo male ho afib on warfarin, Etohism (12pack/day), chronic hyponatremia, HFpEF 55%, O2 at home admitted from Car diology clinic for CHF exacerbation and hyponatremia without mental status changes. Hyponatremia is attributed to polydipsia (beer). He is on fluid restriction and is being diuresed. Na 112 to 114, b eing checked q4. Patient is on CIWA, has Ativan prn.Patient seen on camera: sitting up on side of be d eating supper in NAD36.5 95 149/68 16 97% on 4lProph: warfarinPlease call us if needed.Thank you fo r allowing us to participate in your patient's care.Interventions Major-Electrolyte abnormality - rose luation and management, Other: CHFIntermediate-Communication with other healthcare providers and/or f amily
[2019-05-22] MEDS: Folic Acid 1 MG Tab PO SCH (20:10)
[2019-05-22] MEDS: Thiamine 100 MG Tab PO SCH (20:10)
[2019-05-23] MEDS: Dextrose 5% in Water 1,000 ML IV SCH (01:48)
[2019-05-23 06:47] LABS: BLOOD UREA NITROGEN,BUN 8 mg/dL (7.0-18.0); CARBON DIOXIDE,CO2 34.2 mmol/L (21.0-32.0); CHLORIDE,CL 85 mmol/L (98-107); GLUCOSE RANDOM 147 mg/dL (74-106); POTASSIUM,K 3.5 mmol/L (3.5-5.1); SODIUM,NA 124 mmol/L (136-148)
[2019-05-23] MEDS: Insulin Aspart 100 Units/ML 3 ML Pen SUBCUT SCH ×3 (07:22→17:39)
[2019-05-23] MEDS ORDERED: Magnesium Sulfate/Water 2 GM in Premix Bag 1 BAG IV ONE (08:53)
[2019-05-23] MEDS ORDERED: Potassium Chloride 10% 20 MEQ/15 ML Soln 30 ML UD Cup PO ONE (08:57)
[2019-05-23] MEDS ORDERED: Furosemide 40 MG Tab PO SCH (09:00)
[2019-05-23] MEDS ORDERED: Warfarin 2 MG Tab PO ONE (09:00)
[2019-05-23] MEDS: Diltiazem 180 MG Cap.CD PO SCH (09:16)
--- NOTE | 2019-05-23 10:48 | PN ---
THC Physician - Brief Progress SzjhTHCKVRBES25/09/2019 09:05[facility] Caroline Field, [place] - [facility] - JANETH ESPOSITO TINA M.Date of Service 05/23/2019 09:05SHERRI/Milagro nts of Note Brief eICU NoteEMR reviewed.63 yo male ho afib on warfarin, Etohism, chronic hyponatremia , HFpEF 55%, O2 at home admitted from Cardiology clinic for CHF exacerbation and hyponatremia without mental status changes. Hyponatremia is attributed to polydipsia (beer). He is on fluid restriction. Na on admit was 112. Patient is on CIWA, has Ativan prn.I spoke with patient's Nurse who has several concerns: notes episodes of bradycardia into the 40s yesterday and overnight, Na level is still 124 and patient is still on D5W, Mg is low, further Na lab checks are not ordered, due for Lasix this mor janessa (PO) but urine output still good and BP was lower earlier. Lisinopril was held yesterday.Coreen foy seen on camera: sitting up at side of bed on NC in NAD36.5 76 122/60 19 91% on 3.5l; I/O -4025 yest erday, 1250/840 so far todayRecommend:I wrote orders to replete Mg and K, continue to follow.Follow c reat, has not changed.Na is still low at 124, no sig change since yesterday. I stopped D5W. We will hold this morning Lasix since this will continue to waste Na. I wrote for BMP q6 hours starting at noon. Continue to correct Na at <=10 every 24 hours, goal for tomorrow morning is 134.I wrote to krystina Hutton CD to 180mg PO QD (from 240mg) given episodes of bradycardia.Follow urine output, can gi ve Lasix today if u/o drops off and BP tolerates.Proph: warfarin, adjust dose based on daily INRPleas e call us if needed.Thank you for allowing us to participate in your patient's care.Interventions Ramakrishna or-Arrhythmia - evaluation and management, Electrolyte abnormality - evaluation and managementInterme diate-Communication with other healthcare providers and/or family, Diagnostic test evaluationMinor-Cl inical assessment - ordering diagnostic tests, Routine modifications to care plan (e.g. PRN medicatio ns for pain, fever)
--- NOTE | 2019-05-23 12:34 | PCM.PN ---
- General Info Date of Service: 05/23/19 - Review of Systems Systems Review Comment:: no new complaints - Patient Data Vitals - Most Recent: Last Vital Signs Temp 36.5 C 05/23/19 12:00 Pulse 73 05/23/19 12:00 Resp 15 05/23/19 12:00 BP 112/58 L 05/23/19 12:00 Pulse Ox 94 L 05/23/19 12:00 Weight - Most Recent: 87.6 kg I&O - Last 24 Hours: Intake & Output 05/22/19 05/23/19 05/23/19 22:59 06:59 14:59 Intake Total 1250 580 Output Total 840 Balance 410 580 Lab Results Last 24 Hours: Laboratory Results - last 24 hr 05/22/19 05/22/19 05/22/19 Range/Units 04:05 12:07 16:04 WBC (4.0-11.0) K/uL RBC (4.50-5.90) M/uL Hgb (13.0-17.0) g/dL Hct (38.0-50.0) % MCV (80.0-98.0) fL MCH (27.0-32.0) pg MCHC (31.0-37.0) g/dL RDW Std Deviation (28.0-62.0) fl RDW Coeff of Ijeoma (11.0-15.0) % Plt Count (150-400) K/uL MPV (7.40-12.00) fL Neut % (Auto) (48.0-80.0) % Lymph % (Auto) (16.0-40.0) % Gonzales % (Auto) (0.0-15.0) % Eos % (Auto) (0.0-7.0) % Baso % (Auto) (0.0-1.5) % Neut # (Auto) (1.4-5.7) K/uL Lymph # (Auto) (0.6-2.4) K/uL Gonzales # (Auto) (0.0-0.8) K/uL Eos # (Auto) (0.0-0.7) K/uL Baso # (Auto) (0.0-0.1) K/uL Nucleated RBC % /100WBC Nucleated RBCs # K/uL INR Sodium 123 L 123 L (136-148) mmol/L Potassium (3.5-5.1) mmol/L Chloride (98-107) mmol/L Carbon Dioxide (21.0-32.0) mmol/L BUN (7.0-18.0) mg/dL Creatinine (0.8-1.3) mg/dL Est Cr Clr Drug Dosing mL/min Estimated GFR (MDRD) ml/min Glucose (74-106) mg/dL POC Glucose (60-110) mg/dL Calcium (8.5-10.1) mg/dL Magnesium (1.8-2.4) mg/dL Total Bilirubin (0.2-1.0) mg/dL AST (15-37) IU/L ALT (14-63) IU/L Alkaline Phosphatase (46-116) U/L B-Natriuretic Peptide 1162 H (0-100) pg/ml Total Protein (6.4-8.2) g/dL Albumin (3.4-5.0) g/dL Globulin (2.6-4.0) g/dL Albumin/Globulin Ratio (0.9-1.6) 05/22/19 05/22/19 05/22/19 Range/Units 17:46 20:07 20:12 WBC (4.0-11.0) K/uL RBC (4.50-5.90) M/uL Hgb (13.0-17.0) g/dL Hct (38.0-50.0) % MCV (80.0-98.0) fL MCH (27.0-32.0) pg MCHC (31.0-37.0) g/dL RDW Std Deviation (28.0-62.0) fl RDW Coeff of Ijeoma (11.0-15.0) % Plt Count (150-400) K/uL MPV (7.40-12.00) fL Neut % (Auto) (48.0-80.0) % Lymph % (Auto) (16.0-40.0) % Gonzales % (Auto) (0.0-15.0) % Eos % (Auto) (0.0-7.0) % Baso % (Auto) (0.0-1.5) % Neut # (Auto) (1.4-5.7) K/uL Lymph # (Auto) (0.6-2.4) K/uL Gonzales # (Auto) (0.0-0.8) K/uL Eos # (Auto) (0.0-0.7) K/uL Baso # (Auto) (0.0-0.1) K/uL Nucleated RBC % /100WBC Nucleated RBCs # K/uL INR Sodium 124 L (136-148) mmol/L Potassium (3.5-5.1) mmol/L Chloride (98-107) mmol/L Carbon Dioxide (21.0-32.0) mmol/L BUN (7.0-18.0) mg/dL Creatinine (0.8-1.3) mg/dL Est Cr Clr Drug Dosing mL/min Estimated GFR (MDRD) ml/min Glucose (74-106) mg/dL POC Glucose 128 H 144 H (60-110) mg/dL Calcium (8.5-10.1) mg/dL Magnesium (1.8-2.4) mg/dL Total Bilirubin (0.2-1.0) mg/dL AST (15-37) IU/L ALT (14-63) IU/L Alkaline Phosphatase (46-116) U/L B-Natriuretic Peptide (0-100) pg/ml Total Protein (6.4-8.2) g/dL Albumin (3.4-5.0) g/dL Globulin (2.6-4.0) g/dL Albumin/Globulin Ratio (0.9-1.6) 05/23/19 05/23/19 05/23/19 Range/Units 06:15 06:15 06:15 WBC 6.83 (4.0-11.0) K/uL RBC 3.81 L (4.50-5.90) M/uL Hgb 11.0 L (13.0-17.0) g/dL Hct 32.0 L (38.0-50.0) % MCV 84.0 (80.0-98.0) fL MCH 28.9 (27.0-32.0) pg MCHC 34.4 (31.0-37.0) g/dL RDW Std Deviation 49.1 (28.0-62.0) fl RDW Coeff of Ijeoma 16 H (11.0-15.0) % Plt Count 115 L (150-400) K/uL MPV 10.10 (7.40-12.00) fL Neut % (Auto) 77.9 (48.0-80.0) % Lymph % (Auto) 10.1 L (16.0-40.0) % Gonzales % (Auto) 9.5 (0.0-15.0) % Eos % (Auto) 2.2 (0.0-7.0) % Baso % (Auto) 0.3 (0.0-1.5) % Neut # (Auto) 5.3 (1.4-5.7) K/uL Lymph # (Auto) 0.7 (0.6-2.4) K/uL Gonzales # (Auto) 0.7 (0.0-0.8) K/uL Eos # (Auto) 0.2 (0.0-0.7) K/uL Baso # (Auto) 0.0 (0.0-0.1) K/uL Nucleated RBC % 0.0 /100WBC Nucleated RBCs # 0 K/uL INR 1.24 Sodium 124 L (136-148) mmol/L Potassium 3.5 (3.5-5.1) mmol/L Chloride 85 L (98-107) mmol/L Carbon Dioxide 34.2 H (21.0-32.0) mmol/L BUN 8 (7.0-18.0) mg/dL Creatinine 0.7 L (0.8-1.3) mg/dL Est Cr Clr Drug Dosing 104.50 mL/min Estimated GFR (MDRD) > 60.0 ml/min Glucose 147 H (74-106) mg/dL POC Glucose (60-110) mg/dL Calcium 8.8 (8.5-10.1) mg/dL Magnesium 1.5 L (1.8-2.4) mg/dL Total Bilirubin 0.8 (0.2-1.0) mg/dL AST 20 (15-37) IU/L ALT 13 L (14-63) IU/L Alkaline Phosphatase 117 H (46-116) U/L B-Natriuretic Peptide (0-100) pg/ml Total Protein 6.8 (6.4-8.2) g/dL Albumin 3.3 L (3.4-5.0) g/dL Globulin 3.5 (2.6-4.0) g/dL Albumin/Globulin Ratio 0.9 (0.9-1.6) 05/23/19 05/23/19 Range/Units 06:23 12:21 WBC (4.0-11.0) K/uL RBC (4.50-5.90) M/uL Hgb (13.0-17.0) g/dL Hct (38.0-50.0) % MCV (80.0-98.0) fL MCH (27.0-32.0) pg MCHC (31.0-37.0) g/dL RDW Std Deviation (28.0-62.0) fl RDW Coeff of Ijeoma (11.0-15.0) % Plt Count (150-400) K/uL MPV (7.40-12.00) fL Neut % (Auto) (48.0-80.0) % Lymph % (Auto) (16.0-40.0) % Gonzales % (Auto) (0.0-15.0) % Eos % (Auto) (0.0-7.0) % Baso % (Auto) (0.0-1.5) % Neut # (Auto) (1.4-5.7) K/uL Lymph # (Auto) (0.6-2.4) K/uL Gonzales # (Auto) (0.0-0.8) K/uL Eos # (Auto) (0.0-0.7) K/uL Baso # (Auto) (0.0-0.1) K/uL Nucleated RBC % /100WBC Nucleated RBCs # K/uL INR Sodium (136-148) mmol/L Potassium (3.5-5.1) mmol/L Chloride (98-107) mmol/L Carbon Dioxide (21.0-32.0) mmol/L BUN (7.0-18.0) mg/dL Creatinine (0.8-1.3) mg/dL Est Cr Clr Drug Dosing mL/min Estimated GFR (MDRD) ml/min Glucose (74-106) mg/dL POC Glucose 144 H 103 (60-110) mg/dL Calcium (8.5-10.1) mg/dL Magnesium (1.8-2.4) mg/dL Total Bilirubin (0.2-1.0) mg/dL AST (15-37) IU/L ALT (14-63) IU/L Alkaline Phosphatase (46-116) U/L B-Natriuretic Peptide (0-100) pg/ml Total Protein (6.4-8.2) g/dL Albumin (3.4-5.0) g/dL Globulin (2.6-4.0) g/dL Albumin/Globulin Ratio (0.9-1.6) Virgie Results Last 24 Hours: Microbiology 05/21/19 15:15 Urine Culture - Final Urine, Clean Catch MIXED WU >100,000 CFU/ML 05/22/19 09:50 Stool Occult Blood (VIRGIE) - Final Stool / Feces NEGATIVE OCCULT BLOOD REFERENCE RANGE: NEGATIVE Med Orders - Current: Current Medications Diltiazem HCl (Cardizem Cd) 180 mg PO DAILY [facility] Last Admin: 05/23/19 09:16 Dose: 180 mg Folic Acid (Folic Acid) 1 mg PO BEDTIME [facility] Last Admin: 05/22/19 20:10 Dose: 1 mg Furosemide (Lasix) 80 mg PO DAILY [facility] Last Admin: 05/23/19 09:17 Dose: Not Given Insulin Aspart (Novolog) 0 unit SUBCUT TIDAC [facility]; Protocol Last Admin: 05/23/19 12:24 Dose: Not Given Lorazepam (Ativan) 0 mg IVPUSH Q4H PRN; Protocol PRN Reason: Withdrawal Symptoms Lorazepam (Ativan) 1 mg IVPUSH ONETIME PRN PRN Reason: Seizures Ondansetron HCl (Zofran Odt) 4 mg PO Q4H PRN PRN Reason: nausea, able to take PO Ondansetron HCl (Zofran) 4 mg IVPUSH Q4H PRN PRN Reason: Nausea Thiamine HCl (Vitamin B-1) 100 mg PO BEDTIME [facility] Last Admin: 05/22/19 20:10 Dose: 100 mg Warfarin Sodium (Coumadin Ask) 1 each PO DAILY [facility] Last Admin: 05/23/19 09:16 Dose: 1 each Discontinued Medications Diltiazem HCl (Cardizem Cd) 240 mg PO DAILY [facility] Diltiazem HCl (Cardizem Cd) 240 mg PO DAILY [facility] Last Admin: 05/22/19 10:02 Dose: 240 mg Folic Acid (Folic Acid) 1 mg PO ONETIME ONE Stop: 05/21/19 14:58 Last Admin: 05/21/19 16:26 Dose: 1 mg Furosemide (Lasix) 40 mg IVPUSH Q12H [facility] Last Admin: 05/22/19 02:06 Dose: Not Given Magnesium Sulfate 2 gm/ Premix 50 mls @ 50 mls/hr IV ONETIME ONE Stop: 05/21/19 16:25 Last Admin: 05/21/19 16:29 Dose: 50 mls/hr Dextrose/Water (Dextrose 5% In Water) 1,000 mls @ 100 mls/hr IV ASDIRECTED [facility] Last Admin: 05/23/19 01:48 Dose: 100 mls/hr Magnesium Sulfate 2 gm/ Premix 50 mls @ 50 mls/hr IV ONETIME ONE Stop: 05/22/19 06:36 Last Admin: 05/22/19 06:05 Dose: 50 mls/hr Magnesium Sulfate 2 gm/ Premix 50 mls @ 50 mls/hr IV ONETIME ONE Stop: 05/23/19 09:52 Last Admin: 05/23/19 09:13 Dose: 50 mls/hr Lisinopril (Prinivil) 10 mg PO DAILY [facility] Potassium Chloride (Potassium Chloride) 40 meq PO ONETIME ONE Stop: 05/23/19 08:58 Last Admin: 05/23/19 09:16 Dose: 40 meq Thiamine HCl (Vitamin B-1) 100 mg PO ONETIME ONE Stop: 05/21/19 14:58 Last Admin: 05/21/19 16:27 Dose: 100 mg Warfarin Sodium (Coumadin) 2 mg PO DAILY [facility] Last Admin: 05/22/19 08:39 Dose: 2 mg Warfarin Sodium (Coumadin) 4 mg PO DAILY ONE Stop: 05/23/19 09:01 Last Admin: 05/23/19 09:16 Dose: 4 mg - Exam General: Alert, Oriented Lungs: Clear to Auscultation, Normal Respiratory Effort Cardiovascular: Regular Rate, Regular Rhythm GI/Abdominal Exam: Soft, Non-Tender Extremities: Pedal Edema (+1) Skin: Warm, Dry, Intact Neurological: No New Focal Deficit - Problem List Review Problem List Initiated/Reviewed/Updated: Yes - Plan Plan:: 63 yo male admitted for hyponatremia, CHF and alcohol abuse Hyponatremia: Patient was on d5W due to overcorrection but now will stop d5W and resume fluid restriction Alcohol abuse: continue CIWA protocol
[2019-05-23 12:48] LABS: BLOOD UREA NITROGEN,BUN 7 mg/dL (7.0-18.0); CHLORIDE,CL 89 mmol/L (98-107); GLUCOSE RANDOM 105 mg/dL (74-106); POTASSIUM,K 4.5 mmol/L (3.5-5.1); SODIUM,NA 127 mmol/L (136-148)
[2019-05-23 18:40] LABS: BLOOD UREA NITROGEN,BUN 9 mg/dL (7.0-18.0); CARBON DIOXIDE,CO2 32.4 mmol/L (21.0-32.0); CHLORIDE,CL 89 mmol/L (98-107); GLUCOSE RANDOM 133 mg/dL (74-106); POTASSIUM,K 4.4 mmol/L (3.5-5.1); SODIUM,NA 126 mmol/L (136-148)
[2019-05-23] MEDS: Thiamine 100 MG Tab PO SCH (21:02)
[2019-05-23] MEDS: Folic Acid 1 MG Tab PO SCH (21:02)
[2019-05-24 01:03] LABS: BLOOD UREA NITROGEN,BUN 11 mg/dL (7.0-18.0); CARBON DIOXIDE,CO2 32.7 mmol/L (21.0-32.0); CHLORIDE,CL 91 mmol/L (98-107); GLUCOSE RANDOM 119 mg/dL (74-106); POTASSIUM,K 4.4 mmol/L (3.5-5.1); SODIUM,NA 128 mmol/L (136-148)
[2019-05-24] MEDS: Insulin Aspart 100 Units/ML 3 ML Pen SUBCUT SCH ×3 (06:42→17:50)
[2019-05-24 07:13] LABS: BLOOD UREA NITROGEN,BUN 8 mg/dL (7.0-18.0); CARBON DIOXIDE,CO2 31.2 mmol/L (21.0-32.0); CHLORIDE,CL 91 mmol/L (98-107); GLUCOSE RANDOM 113 mg/dL (74-106); POTASSIUM,K 4.6 mmol/L (3.5-5.1); SODIUM,NA 129 mmol/L (136-148)
[2019-05-24] MEDS ORDERED: Magnesium Sulfate/Water 2 GM in Premix Bag 1 BAG IV ONE (08:15)
[2019-05-24] MEDS: Diltiazem 180 MG Cap.CD PO SCH (08:44)
--- NOTE | 2019-05-24 08:53 | PCM.PN ---
- General Info Date of Service: 05/24/19 - Review of Systems Systems Review Comment:: breathing has improved. - Patient Data Vitals - Most Recent: Last Vital Signs Temp 36.1 C 05/24/19 08:00 Pulse 65 05/24/19 08:00 Resp 15 05/24/19 08:00 BP 134/71 05/24/19 08:00 Pulse Ox 95 05/24/19 08:00 Weight - Most Recent: 85.8 kg I&O - Last 24 Hours: Intake & Output 05/23/19 05/24/19 05/24/19 22:59 06:59 14:59 Intake Total 200 150 Output Total 1540 475 Balance -1340 -325 Lab Results Last 24 Hours: Laboratory Results - last 24 hr 05/23/19 05/23/19 05/23/19 Range/Units 12:20 12:21 17:12 WBC (4.0-11.0) K/uL RBC (4.50-5.90) M/uL Hgb (13.0-17.0) g/dL Hct (38.0-50.0) % MCV (80.0-98.0) fL MCH (27.0-32.0) pg MCHC (31.0-37.0) g/dL RDW Std Deviation (28.0-62.0) fl RDW Coeff of Ijeoma (11.0-15.0) % Plt Count (150-400) K/uL MPV (7.40-12.00) fL Neut % (Auto) (48.0-80.0) % Lymph % (Auto) (16.0-40.0) % [place] % (Auto) (0.0-15.0) % Eos % (Auto) (0.0-7.0) % Baso % (Auto) (0.0-1.5) % Neut # (Auto) (1.4-5.7) K/uL Lymph # (Auto) (0.6-2.4) K/uL [place] # (Auto) (0.0-0.8) K/uL Eos # (Auto) (0.0-0.7) K/uL Baso # (Auto) (0.0-0.1) K/uL Nucleated RBC % /100WBC Nucleated RBCs # K/uL INR Sodium 127 L (136-148) mmol/L Potassium 4.5 (3.5-5.1) mmol/L Chloride 89 L (98-107) mmol/L Carbon Dioxide 33.0 H (21.0-32.0) mmol/L BUN 7 (7.0-18.0) mg/dL Creatinine 0.7 L (0.8-1.3) mg/dL Est Cr Clr Drug Dosing 104.50 mL/min Estimated GFR (MDRD) > 60.0 ml/min Glucose 105 (74-106) mg/dL POC Glucose 103 107 (60-110) mg/dL Calcium 9.0 (8.5-10.1) mg/dL Magnesium (1.8-2.4) mg/dL Total Bilirubin (0.2-1.0) mg/dL AST (15-37) IU/L ALT (14-63) IU/L Alkaline Phosphatase (46-116) U/L Total Protein (6.4-8.2) g/dL Albumin (3.4-5.0) g/dL Globulin (2.6-4.0) g/dL Albumin/Globulin Ratio (0.9-1.6) 05/23/19 05/23/19 05/24/19 Range/Units 18:12 21:04 00:15 WBC (4.0-11.0) K/uL RBC (4.50-5.90) M/uL Hgb (13.0-17.0) g/dL Hct (38.0-50.0) % MCV (80.0-98.0) fL MCH (27.0-32.0) pg MCHC (31.0-37.0) g/dL RDW Std Deviation (28.0-62.0) fl RDW Coeff of Ijeoma (11.0-15.0) % Plt Count (150-400) K/uL MPV (7.40-12.00) fL Neut % (Auto) (48.0-80.0) % Lymph % (Auto) (16.0-40.0) % [place] % (Auto) (0.0-15.0) % Eos % (Auto) (0.0-7.0) % Baso % (Auto) (0.0-1.5) % Neut # (Auto) (1.4-5.7) K/uL Lymph # (Auto) (0.6-2.4) K/uL [place] # (Auto) (0.0-0.8) K/uL Eos # (Auto) (0.0-0.7) K/uL Baso # (Auto) (0.0-0.1) K/uL Nucleated RBC % /100WBC Nucleated RBCs # K/uL INR Sodium 126 L 128 L (136-148) mmol/L Potassium 4.4 4.4 (3.5-5.1) mmol/L Chloride 89 L 91 L (98-107) mmol/L Carbon Dioxide 32.4 H 32.7 H (21.0-32.0) mmol/L BUN 9 11 (7.0-18.0) mg/dL Creatinine 0.7 L 0.8 (0.8-1.3) mg/dL Est Cr Clr Drug Dosing 104.50 91.44 mL/min Estimated GFR (MDRD) > 60.0 > 60.0 ml/min Glucose 133 H 119 H (74-106) mg/dL POC Glucose 108 (60-110) mg/dL Calcium 9.3 9.0 (8.5-10.1) mg/dL Magnesium (1.8-2.4) mg/dL Total Bilirubin (0.2-1.0) mg/dL AST (15-37) IU/L ALT (14-63) IU/L Alkaline Phosphatase (46-116) U/L Total Protein (6.4-8.2) g/dL Albumin (3.4-5.0) g/dL Globulin (2.6-4.0) g/dL Albumin/Globulin Ratio (0.9-1.6) 05/24/19 05/24/19 05/24/19 Range/Units 06:05 06:05 06:37 WBC 6.43 (4.0-11.0) K/uL RBC 3.78 L (4.50-5.90) M/uL Hgb 11.3 L (13.0-17.0) g/dL Hct 32.3 L (38.0-50.0) % MCV 85.4 (80.0-98.0) fL MCH 29.9 (27.0-32.0) pg MCHC 35.0 (31.0-37.0) g/dL RDW Std Deviation 51.7 (28.0-62.0) fl RDW Coeff of Ijeoma 17 H (11.0-15.0) % Plt Count 122 L (150-400) K/uL MPV 10.70 (7.40-12.00) fL Neut % (Auto) 72.9 (48.0-80.0) % Lymph % (Auto) 13.2 L (16.0-40.0) % [place] % (Auto) 9.3 (0.0-15.0) % Eos % (Auto) 3.7 (0.0-7.0) % Baso % (Auto) 0.9 (0.0-1.5) % Neut # (Auto) 4.7 (1.4-5.7) K/uL Lymph # (Auto) 0.9 (0.6-2.4) K/uL [place] # (Auto) 0.6 (0.0-0.8) K/uL Eos # (Auto) 0.2 (0.0-0.7) K/uL Baso # (Auto) 0.1 (0.0-0.1) K/uL Nucleated RBC % 0.0 /100WBC Nucleated RBCs # 0 K/uL INR Sodium 129 L (136-148) mmol/L Potassium 4.6 (3.5-5.1) mmol/L Chloride 91 L (98-107) mmol/L Carbon Dioxide 31.2 (21.0-32.0) mmol/L BUN 8 (7.0-18.0) mg/dL Creatinine 0.7 L (0.8-1.3) mg/dL Est Cr Clr Drug Dosing 104.50 mL/min Estimated GFR (MDRD) > 60.0 ml/min Glucose 113 H (74-106) mg/dL POC Glucose 116 H (60-110) mg/dL Calcium 9.1 (8.5-10.1) mg/dL Magnesium 1.5 L (1.8-2.4) mg/dL Total Bilirubin 0.9 (0.2-1.0) mg/dL AST 25 (15-37) IU/L ALT 16 (14-63) IU/L Alkaline Phosphatase 128 H (46-116) U/L Total Protein 6.7 (6.4-8.2) g/dL Albumin 3.3 L (3.4-5.0) g/dL Globulin 3.4 (2.6-4.0) g/dL Albumin/Globulin Ratio 1.0 (0.9-1.6) 05/24/19 Range/Units 07:35 WBC (4.0-11.0) K/uL RBC (4.50-5.90) M/uL Hgb (13.0-17.0) g/dL Hct (38.0-50.0) % MCV (80.0-98.0) fL MCH (27.0-32.0) pg MCHC (31.0-37.0) g/dL RDW Std Deviation (28.0-62.0) fl RDW Coeff of Ijeoma (11.0-15.0) % Plt Count (150-400) K/uL MPV (7.40-12.00) fL Neut % (Auto) (48.0-80.0) % Lymph % (Auto) (16.0-40.0) % [place] % (Auto) (0.0-15.0) % Eos % (Auto) (0.0-7.0) % Baso % (Auto) (0.0-1.5) % Neut # (Auto) (1.4-5.7) K/uL Lymph # (Auto) (0.6-2.4) K/uL [place] # (Auto) (0.0-0.8) K/uL Eos # (Auto) (0.0-0.7) K/uL Baso # (Auto) (0.0-0.1) K/uL Nucleated RBC % /100WBC Nucleated RBCs # K/uL INR 1.20 Sodium (136-148) mmol/L Potassium (3.5-5.1) mmol/L Chloride (98-107) mmol/L Carbon Dioxide (21.0-32.0) mmol/L BUN (7.0-18.0) mg/dL Creatinine (0.8-1.3) mg/dL Est Cr Clr Drug Dosing mL/min Estimated GFR (MDRD) ml/min Glucose (74-106) mg/dL POC Glucose (60-110) mg/dL Calcium (8.5-10.1) mg/dL Magnesium (1.8-2.4) mg/dL Total Bilirubin (0.2-1.0) mg/dL AST (15-37) IU/L ALT (14-63) IU/L Alkaline Phosphatase (46-116) U/L Total Protein (6.4-8.2) g/dL Albumin (3.4-5.0) g/dL Globulin (2.6-4.0) g/dL Albumin/Globulin Ratio (0.9-1.6) Isaiah Results Last 24 Hours: Microbiology 05/21/19 15:15 Urine Culture - Final Urine, Clean Catch MIXED WU >100,000 CFU/ML Med Orders - Current: Current Medications Diltiazem HCl (Cardizem Cd) 180 mg PO DAILY [facility] Last Admin: 05/24/19 08:44 Dose: 180 mg Folic Acid (Folic Acid) 1 mg PO BEDTIME [facility] Last Admin: 05/23/19 21:02 Dose: 1 mg Magnesium Sulfate 2 gm/ Premix 50 mls @ 25 mls/hr IV ONETIME ONE Stop: 05/24/19 10:14 Last Admin: 05/24/19 08:51 Dose: 25 mls/hr Insulin Aspart (Novolog) 0 unit SUBCUT TIDAC [facility]; Protocol Last Admin: 05/24/19 06:42 Dose: Not Given Lorazepam (Ativan) 0 mg IVPUSH Q4H PRN; Protocol PRN Reason: Withdrawal Symptoms Lorazepam (Ativan) 1 mg IVPUSH ONETIME PRN PRN Reason: Seizures Ondansetron HCl (Zofran Odt) 4 mg PO Q4H PRN PRN Reason: nausea, able to take PO Ondansetron HCl (Zofran) 4 mg IVPUSH Q4H PRN PRN Reason: Nausea Thiamine HCl (Vitamin B-1) 100 mg PO BEDTIME [facility] Last Admin: 05/23/19 21:02 Dose: 100 mg Warfarin Sodium (Coumadin Ask) 1 each PO DAILY [facility] Last Admin: 05/23/19 09:16 Dose: 1 each Warfarin Sodium (Coumadin) 3 mg PO DAILY ONE Stop: 05/24/19 09:01 Last Admin: 05/24/19 08:45 Dose: 3 mg Discontinued Medications Diltiazem HCl (Cardizem Cd) 240 mg PO DAILY [facility] Diltiazem HCl (Cardizem Cd) 240 mg PO DAILY [facility] Last Admin: 05/22/19 10:02 Dose: 240 mg Folic Acid (Folic Acid) 1 mg PO ONETIME ONE Stop: 05/21/19 14:58 Last Admin: 05/21/19 16:26 Dose: 1 mg Furosemide (Lasix) 40 mg IVPUSH Q12H [facility] Last Admin: 05/22/19 02:06 Dose: Not Given Furosemide (Lasix) 80 mg PO DAILY [facility] Last Admin: 05/23/19 09:17 Dose: Not Given Magnesium Sulfate 2 gm/ Premix 50 mls @ 50 mls/hr IV ONETIME ONE Stop: 05/21/19 16:25 Last Admin: 05/21/19 16:29 Dose: 50 mls/hr Dextrose/Water (Dextrose 5% In Water) 1,000 mls @ 100 mls/hr IV ASDIRECTED [facility] Last Admin: 05/23/19 01:48 Dose: 100 mls/hr Magnesium Sulfate 2 gm/ Premix 50 mls @ 50 mls/hr IV ONETIME ONE Stop: 05/22/19 06:36 Last Admin: 05/22/19 06:05 Dose: 50 mls/hr Magnesium Sulfate 2 gm/ Premix 50 mls @ 50 mls/hr IV ONETIME ONE Stop: 05/23/19 09:52 Last Admin: 05/23/19 09:13 Dose: 50 mls/hr Lisinopril (Prinivil) 10 mg PO DAILY [facility] Potassium Chloride (Potassium Chloride) 40 meq PO ONETIME ONE Stop: 05/23/19 08:58 Last Admin: 05/23/19 09:16 Dose: 40 meq Thiamine HCl (Vitamin B-1) 100 mg PO ONETIME ONE Stop: 05/21/19 14:58 Last Admin: 05/21/19 16:27 Dose: 100 mg Warfarin Sodium (Coumadin) 2 mg PO DAILY [facility] Last Admin: 05/22/19 08:39 Dose: 2 mg Warfarin Sodium (Coumadin) 4 mg PO DAILY ONE Stop: 05/23/19 09:01 Last Admin: 05/23/19 09:16 Dose: 4 mg - Exam General: Alert, Oriented Neck: Supple Lungs: Clear to Auscultation, Normal Respiratory Effort Cardiovascular: Regular Rate, Regular Rhythm GI/Abdominal Exam: Soft, Non-Tender, No Distention Extremities: Pedal Edema (+1) - Problem List Review Problem List Initiated/Reviewed/Updated: Yes - My Orders Last 24 Hours: My Active Orders 05/24/19 09:00 Warfarin [Coumadin] 3 mg PO DAILY ONE 05/25/19 05:11 BASIC METABOLIC PANEL,BMP [CHEM] AM CBC WITH AUTO DIFF [HEME] AM 05/26/19 05:11 BASIC METABOLIC PANEL,BMP [CHEM] AM CBC WITH AUTO DIFF [HEME] AM - Plan Plan:: 63 yo male admitted for hyponatremia, CHF and alcohol abuse Hyponatremia: Sodium of 129, continue fluid restriction. Holding lasix to prevent rapid correction of sodium. Alcohol abuse: continue CIWA protocol
[2019-05-24 14:26] LABS: BLOOD UREA NITROGEN,BUN 11 mg/dL (7.0-18.0); CARBON DIOXIDE,CO2 32.7 mmol/L (21.0-32.0); CHLORIDE,CL 93 mmol/L (98-107); GLUCOSE RANDOM 175 mg/dL (74-106); POTASSIUM,K 4.4 mmol/L (3.5-5.1); SODIUM,NA 131 mmol/L (136-148)
[2019-05-24] MEDS: Folic Acid 1 MG Tab PO SCH (22:46)
[2019-05-24] MEDS: Thiamine 100 MG Tab PO SCH (22:46)
[2019-05-25 06:25] LABS: BLOOD UREA NITROGEN,BUN 10 mg/dL (7.0-18.0); CARBON DIOXIDE,CO2 29.7 mmol/L (21.0-32.0); CHLORIDE,CL 95 mmol/L (98-107); GLUCOSE RANDOM 118 mg/dL (74-106); POTASSIUM,K 4.3 mmol/L (3.5-5.1); SODIUM,NA 131 mmol/L (136-148)
[2019-05-25] MEDS ORDERED: Magnesium Sulfate/Water 2 GM in Premix Bag 1 BAG IV ONE (07:38)
[2019-05-25] MEDS: Insulin Aspart 100 Units/ML 3 ML Pen SUBCUT SCH ×2 (07:45→11:29)
[2019-05-25] MEDS: Diltiazem 180 MG Cap.CD PO SCH (08:08)
--- NOTE | 2019-05-25 11:13 | PCM.DCSUM1 ---
<Clark White - Last Filed: 05/25/19 16:13> Discharge Summary - Hospital Course Free Text/Narrative:: 63 y/o male with history of HFpEF, Afib on warfarin and alcohol abuse who presented with Na level 112. Patient was admitted for severe hyponatremia. He was fluid restricted with 2 L /day and diuresed with Lasix 40 mg IV BID. He responded well. His Lasix was then stopped due to rapidly increased Na level. He remained asymptomatic during this hospitalization. He was started on CIWA monitoring and Ativan PRN, however, he did not required any ativan. At time of discahrge his Na level was 131. He was feeling better. Dr. Torres recommended starting Torsemide 40 mg PO daily and stopping lasix. Patient was informed of this and he was discharged home on Torsemide, folic acid and thiamine. In addition, he was advised to abstain from alcohol and to a fluid restriction of 2 L/day. - Discharge Data Discharge Date: 05/25/19 Discharge Disposition: Home, Self-Care 01 Condition: Good - Referral to Home Health Primary Care Physician: PCP Unobtainable - Patient Instructions Diet: Heart Healthy Diet Activity: As Tolerated, Rest and Relax Today Notify Provider of: Fever, Increased Pain, Swelling and Redness, Nausea and/or Vomiting - Discharge Plan *PRESCRIPTION DRUG MONITORING PROGRAM REVIEWED*: Not Applicable *COPY OF PRESCRIPTION DRUG MONITORING REPORT IN PATIENT KAIDEN: Not Applicable Prescriptions/Med Rec: Folic Acid 1 mg PO BEDTIME 30 Days #30 tablet Thiamine [Vitamin B-1] 100 mg PO BEDTIME #30 tablet Torsemide 40 mg PO DAILY 30 Days #60 tablet Home Medications: Home Meds Diltiazem HCl [Dilt-Xr] 240 mg PO DAILY 10/31/16 [History] Lisinopril 10 mg PO DAILY 12/03/18 [History] Sildenafil [Revatio] 60 mg PO DAILY PRN 12/03/18 [History] Warfarin [Coumadin] 2 mg PO DAILY 12/03/18 [History] metFORMIN [Glucophage XR] 1,000 mg PO ACBREAKFAST 12/03/18 [History] Pregabalin 75 mg PO TID PRN 05/21/19 [History] Folic Acid 1 mg PO BEDTIME 30 Days #30 tablet 05/25/19 [Rx] Thiamine [Vitamin B-1] 100 mg PO BEDTIME #30 tablet 05/25/19 [Rx] Torsemide 40 mg PO DAILY 30 Days #60 tablet 05/25/19 [Rx] Patient Handouts: Furosemide tablets, Torsemide tablets, Hyponatremia, Easy-to- Read, Thiamine, Vitamin B1 tablets, Heart Failure, [id number], Folic Acid, Vitamin B9 tablets Referrals: Kang Kraus MD [Physician] - 07/07/19 9:00 am (05/28/[address] Kraus) Herminio Araiza MD [Physician] - 06/02/19 2:45 pm (Please arrive 15 minutes early. ) - Discharge Summary/Plan Comment DC Time >30 min.: No - Patient Data Vitals - Most Recent: Last Vital Signs Temp 36.1 C 05/25/19 07:46 Pulse 79 05/25/19 07:46 Resp 18 05/25/19 07:46 BP 171/77 H 05/25/19 07:46 Pulse Ox 91 L 05/25/19 07:46 Weight - Most Recent: 85.139 kg I&O - Last 24 hours: Intake & Output 05/24/19 05/25/19 05/25/19 22:59 06:59 14:59 Intake Total 600 100 50 Output Total 775 425 Balance -175 -325 50 Lab Results - Last 24 hrs: Laboratory Results - last 24 hr 05/21/19 05/24/19 05/24/19 Range/Units 15:15 11:42 14:00 WBC (4.0-11.0) K/uL RBC (4.50-5.90) M/uL Hgb (13.0-17.0) g/dL Hct (38.0-50.0) % MCV (80.0-98.0) fL MCH (27.0-32.0) pg MCHC (31.0-37.0) g/dL RDW Std Deviation (28.0-62.0) fl RDW Coeff of Ije[place] (11.0-15.0) % Plt Count (150-400) K/uL MPV (7.40-12.00) fL Neut % (Auto) (48.0-80.0) % Lymph % (Auto) (16.0-40.0) % [place] % (Auto) (0.0-15.0) % Eos % (Auto) (0.0-7.0) % Baso % (Auto) (0.0-1.5) % Neut # (Auto) (1.4-5.7) K/uL Lymph # (Auto) (0.6-2.4) K/uL [place] # (Auto) (0.0-0.8) K/uL Eos # (Auto) (0.0-0.7) K/uL Baso # (Auto) (0.0-0.1) K/uL Nucleated RBC % /100WBC Nucleated RBCs # K/uL INR Sodium 131 L (136-148) mmol/L Potassium 4.4 (3.5-5.1) mmol/L Chloride 93 L (98-107) mmol/L Carbon Dioxide 32.7 H (21.0-32.0) mmol/L BUN 11 (7.0-18.0) mg/dL Creatinine 0.8 (0.8-1.3) mg/dL Est Cr Clr Drug Dosing 91.44 mL/min Estimated GFR (MDRD) > 60.0 ml/min Glucose 175 H (74-106) mg/dL POC Glucose 101 (60-110) mg/dL Calcium 9.9 (8.5-10.1) mg/dL Magnesium (1.8-2.4) mg/dL Ur Urea Nitrogen Conc 109 mg/dL 05/24/19 05/25/19 05/25/19 Range/Units 17:30 05:45 05:45 WBC 6.67 (4.0-11.0) K/uL RBC 4.12 L (4.50-5.90) M/uL Hgb 11.7 L (13.0-17.0) g/dL Hct 35.5 L (38.0-50.0) % MCV 86.2 (80.0-98.0) fL MCH 28.4 (27.0-32.0) pg MCHC 33.0 (31.0-37.0) g/dL RDW Std Deviation 52.8 (28.0-62.0) fl RDW Coeff of Ije[place] 17 H (11.0-15.0) % Plt Count 144 L (150-400) K/uL MPV 10.00 (7.40-12.00) fL Neut % (Auto) 72.9 (48.0-80.0) % Lymph % (Auto) 12.9 L (16.0-40.0) % [place] % (Auto) 9.6 (0.0-15.0) % Eos % (Auto) 3.9 (0.0-7.0) % Baso % (Auto) 0.7 (0.0-1.5) % Neut # (Auto) 4.9 (1.4-5.7) K/uL Lymph # (Auto) 0.9 (0.6-2.4) K/uL [place] # (Auto) 0.6 (0.0-0.8) K/uL Eos # (Auto) 0.3 (0.0-0.7) K/uL Baso # (Auto) 0.1 (0.0-0.1) K/uL Nucleated RBC % 0.0 /100WBC Nucleated RBCs # 0 K/uL INR Sodium 131 L (136-148) mmol/L Potassium 4.3 (3.5-5.1) mmol/L Chloride 95 L (98-107) mmol/L Carbon Dioxide 29.7 (21.0-32.0) mmol/L BUN 10 (7.0-18.0) mg/dL Creatinine 0.7 L (0.8-1.3) mg/dL Est Cr Clr Drug Dosing 104.50 mL/min Estimated GFR (MDRD) > 60.0 ml/min Glucose 118 H (74-106) mg/dL POC Glucose 134 H (60-110) mg/dL Calcium 9.3 (8.5-10.1) mg/dL Magnesium 1.5 L (1.8-2.4) mg/dL Ur Urea Nitrogen Conc mg/dL 05/25/19 05/25/19 Range/Units 07:00 08:30 WBC (4.0-11.0) K/uL RBC (4.50-5.90) M/uL Hgb (13.0-17.0) g/dL Hct (38.0-50.0) % MCV (80.0-98.0) fL MCH (27.0-32.0) pg MCHC (31.0-37.0) g/dL RDW Std Deviation (28.0-62.0) fl RDW Coeff of [place]je[place] (11.0-15.0) % Plt Count (150-400) K/uL MPV (7.40-12.00) fL Neut % (Auto) (48.0-80.0) % Lymph % (Auto) (16.0-40.0) % [place] % (Auto) (0.0-15.0) % Eos % (Auto) (0.0-7.0) % Baso % (Auto) (0.0-1.5) % Neut # (Auto) (1.4-5.7) K/uL Lymph # (Auto) (0.6-2.4) K/uL [place] # (Auto) (0.0-0.8) K/uL Eos # (Auto) (0.0-0.7) K/uL Baso # (Auto) (0.0-0.1) K/uL Nucleated RBC % /100WBC Nucleated RBCs # K/uL INR 1.16 Sodium (136-148) mmol/L Potassium (3.5-5.1) mmol/L Chloride (98-107) mmol/L Carbon Dioxide (21.0-32.0) mmol/L BUN (7.0-18.0) mg/dL Creatinine (0.8-1.3) mg/dL Est Cr Clr Drug Dosing mL/min Estimated GFR (MDRD) ml/min Glucose (74-106) mg/dL POC Glucose 108 (60-110) mg/dL Calcium (8.5-10.1) mg/dL Magnesium (1.8-2.4) mg/dL Ur Urea Nitrogen Conc mg/dL Med Orders - Current: Current Medications Diltiazem HCl (Cardizem Cd) 180 mg PO DAILY [facility] Last Admin: 05/25/19 08:08 Dose: 180 mg Folic Acid (Folic Acid) 1 mg PO BEDTIME [facility] Last Admin: 05/24/19 22:46 Dose: 1 mg Insulin Aspart (Novolog) 0 unit SUBCUT TIDAC [facility]; Protocol Last Admin: 05/25/19 07:45 Dose: Not Given Lorazepam (Ativan) 0 mg IVPUSH Q4H PRN; Protocol PRN Reason: Withdrawal Symptoms Lorazepam (Ativan) 1 mg IVPUSH ONETIME PRN PRN Reason: Seizures Ondansetron HCl (Zofran Odt) 4 mg PO Q4H PRN PRN Reason: nausea, able to take PO Ondansetron HCl (Zofran) 4 mg IVPUSH Q4H PRN PRN Reason: Nausea Thiamine HCl (Vitamin B-1) 100 mg PO BEDTIME [facility] Last Admin: 05/24/19 22:46 Dose: 100 mg Warfarin Sodium (Coumadin Ask) 1 each PO DAILY [facility] Last Admin: 05/24/19 08:57 Dose: Not Given Discontinued Medications Diltiazem HCl (Cardizem Cd) 240 mg PO DAILY [facility] Diltiazem HCl (Cardizem Cd) 240 mg PO DAILY [facility] Last Admin: 05/22/19 10:02 Dose: 240 mg Folic Acid (Folic Acid) 1 mg PO ONETIME ONE Stop: 05/21/19 14:58 Last Admin: 05/21/19 16:26 Dose: 1 mg Furosemide (Lasix) 40 mg IVPUSH Q12H [facility] Last Admin: 05/22/19 02:06 Dose: Not Given Furosemide (Lasix) 80 mg PO DAILY [facility] Last Admin: 05/23/19 09:17 Dose: Not Given Magnesium Sulfate 2 gm/ Premix 50 mls @ 50 mls/hr IV ONETIME ONE Stop: 05/21/19 16:25 Last Admin: 05/21/19 16:29 Dose: 50 mls/hr Dextrose/Water (Dextrose 5% In Water) 1,000 mls @ 100 mls/hr IV ASDIRECTED [facility] Last Admin: 05/23/19 01:48 Dose: 100 mls/hr Magnesium Sulfate 2 gm/ Premix 50 mls @ 50 mls/hr IV ONETIME ONE Stop: 05/22/19 06:36 Last Admin: 05/22/19 06:05 Dose: 50 mls/hr Magnesium Sulfate 2 gm/ Premix 50 mls @ 50 mls/hr IV ONETIME ONE Stop: 05/23/19 09:52 Last Admin: 05/23/19 09:13 Dose: 50 mls/hr Magnesium Sulfate 2 gm/ Premix 50 mls @ 25 mls/hr IV ONETIME ONE Stop: 05/24/19 10:14 Last Admin: 05/24/19 08:51 Dose: 25 mls/hr Magnesium Sulfate 2 gm/ Premix 50 mls @ 25 mls/hr IV ONETIME ONE Stop: 05/25/19 09:37 Last Admin: 05/25/19 08:01 Dose: 25 mls/hr Lisinopril (Prinivil) 10 mg PO DAILY [facility] Potassium Chloride (Potassium Chloride) 40 meq PO ONETIME ONE Stop: 05/23/19 08:58 Last Admin: 05/23/19 09:16 Dose: 40 meq Thiamine HCl (Vitamin B-1) 100 mg PO ONETIME ONE Stop: 05/21/19 14:58 Last Admin: 05/21/19 16:27 Dose: 100 mg Warfarin Sodium (Coumadin) 2 mg PO DAILY [facility] Last Admin: 05/22/19 08:39 Dose: 2 mg Warfarin Sodium (Coumadin) 4 mg PO DAILY ONE Stop: 05/23/19 09:01 Last Admin: 05/23/19 09:16 Dose: 4 mg Warfarin Sodium (Coumadin) 3 mg PO DAILY ONE Stop: 05/24/19 09:01 Last Admin: 05/24/19 08:45 Dose: 3 mg <Simeon Garcia J - Last Filed: 05/25/19 20:47> Discharge Summary - Referral to Home Health Primary Care Physician: PCP Unobtainable - Patient Data Vitals - Most Recent: Last Vital Signs Temp 36.3 C 05/25/19 12:00 Pulse 72 05/25/19 12:00 Resp 18 05/25/19 12:00 BP 125/61 05/25/19 12:00 Pulse Ox 96 05/25/19 12:00 I&O - Last 24 hours: Intake & Output 05/25/19 05/25/19 05/25/19 06:59 14:59 22:59 Intake Total 100 250 Output Total 425 325 Balance -325 -75 Lab Results - Last 24 hrs: Laboratory Results - last 24 hr 05/21/19 05/25/19 05/25/19 Range/Units 15:15 05:45 05:45 WBC 6.67 (4.0-11.0) K/uL RBC 4.12 L (4.50-5.90) M/uL Hgb 11.7 L (13.0-17.0) g/dL Hct 35.5 L (38.0-50.0) % MCV 86.2 (80.0-98.0) fL MCH 28.4 (27.0-32.0) pg MCHC 33.0 (31.0-37.0) g/dL RDW Std Deviation 52.8 (28.0-62.0) fl RDW Coeff of Ijeoma 17 H (11.0-15.0) % Plt Count 144 L (150-400) K/uL MPV 10.00 (7.40-12.00) fL Neut % (Auto) 72.9 (48.0-80.0) % Lymph % (Auto) 12.9 L (16.0-40.0) % [place] % (Auto) 9.6 (0.0-15.0) % Eos % (Auto) 3.9 (0.0-7.0) % Baso % (Auto) 0.7 (0.0-1.5) % Neut # (Auto) 4.9 (1.4-5.7) K/uL Lymph # (Auto) 0.9 (0.6-2.4) K/uL [place] # (Auto) 0.6 (0.0-0.8) K/uL Eos # (Auto) 0.3 (0.0-0.7) K/uL Baso # (Auto) 0.1 (0.0-0.1) K/uL Nucleated RBC % 0.0 /100WBC Nucleated RBCs # 0 K/uL INR Sodium 131 L (136-148) mmol/L Potassium 4.3 (3.5-5.1) mmol/L Chloride 95 L (98-107) mmol/L Carbon Dioxide 29.7 (21.0-32.0) mmol/L BUN 10 (7.0-18.0) mg/dL Creatinine 0.7 L (0.8-1.3) mg/dL Est Cr Clr Drug Dosing 104.50 mL/min Estimated GFR (MDRD) > 60.0 ml/min Glucose 118 H (74-106) mg/dL POC Glucose (60-110) mg/dL Calcium 9.3 (8.5-10.1) mg/dL Magnesium 1.5 L (1.8-2.4) mg/dL Ur Urea Nitrogen Conc 109 mg/dL 05/25/19 05/25/19 05/25/19 Range/Units 07:00 08:30 11:24 WBC (4.0-11.0) K/uL RBC (4.50-5.90) M/uL Hgb (13.0-17.0) g/dL Hct (38.0-50.0) % MCV (80.0-98.0) fL MCH (27.0-32.0) pg MCHC (31.0-37.0) g/dL RDW Std Deviation (28.0-62.0) fl RDW Coeff of [place]je[place] (11.0-15.0) % Plt Count (150-400) K/uL MPV (7.40-12.00) fL Neut % (Auto) (48.0-80.0) % Lymph % (Auto) (16.0-40.0) % [place] % (Auto) (0.0-15.0) % Eos % (Auto) (0.0-7.0) % Baso % (Auto) (0.0-1.5) % Neut # (Auto) (1.4-5.7) K/uL Lymph # (Auto) (0.6-2.4) K/uL [place] # (Auto) (0.0-0.8) K/uL Eos # (Auto) (0.0-0.7) K/uL Baso # (Auto) (0.0-0.1) K/uL Nucleated RBC % /100WBC Nucleated RBCs # K/uL INR 1.16 Sodium (136-148) mmol/L Potassium (3.5-5.1) mmol/L Chloride (98-107) mmol/L Carbon Dioxide (21.0-32.0) mmol/L BUN (7.0-18.0) mg/dL Creatinine (0.8-1.3) mg/dL Est Cr Clr Drug Dosing mL/min Estimated GFR (MDRD) ml/min Glucose (74-106) mg/dL POC Glucose 108 96 (60-110) mg/dL Calcium (8.5-10.1) mg/dL Magnesium (1.8-2.4) mg/dL Ur Urea Nitrogen Conc mg/dL Med Orders - Current: Current Medications Discontinued Medications Diltiazem HCl (Cardizem Cd) 240 mg PO DAILY [facility] Diltiazem HCl (Cardizem Cd) 240 mg PO DAILY [facility] Last Admin: 05/22/19 10:02 Dose: 240 mg Diltiazem HCl (Cardizem Cd) 180 mg PO DAILY [facility] Last Admin: 05/25/19 08:08 Dose: 180 mg Folic Acid (Folic Acid) 1 mg PO ONETIME ONE Stop: 05/21/19 14:58 Last Admin: 05/21/19 16:26 Dose: 1 mg Folic Acid (Folic Acid) 1 mg PO BEDTIME [facility] Last Admin: 05/24/19 22:46 Dose: 1 mg Furosemide (Lasix) 40 mg IVPUSH Q12H [facility] Last Admin: 05/22/19 02:06 Dose: Not Given Furosemide (Lasix) 80 mg PO DAILY [facility] Last Admin: 05/23/19 09:17 Dose: Not Given Magnesium Sulfate 2 gm/ Premix 50 mls @ 50 mls/hr IV ONETIME ONE Stop: 05/21/19 16:25 Last Admin: 05/21/19 16:29 Dose: 50 mls/hr Dextrose/Water (Dextrose 5% In Water) 1,000 mls @ 100 mls/hr IV ASDIRECTED [facility] Last Admin: 05/23/19 01:48 Dose: 100 mls/hr Magnesium Sulfate 2 gm/ Premix 50 mls @ 50 mls/hr IV ONETIME ONE Stop: 05/22/19 06:36 Last Admin: 05/22/19 06:05 Dose: 50 mls/hr Magnesium Sulfate 2 gm/ Premix 50 mls @ 50 mls/hr IV ONETIME ONE Stop: 05/23/19 09:52 Last Admin: 05/23/19 09:13 Dose: 50 mls/hr Magnesium Sulfate 2 gm/ Premix 50 mls @ 25 mls/hr IV ONETIME ONE Stop: 05/24/19 10:14 Last Admin: 05/24/19 08:51 Dose: 25 mls/hr Magnesium Sulfate 2 gm/ Premix 50 mls @ 25 mls/hr IV ONETIME ONE Stop: 05/25/19 09:37 Last Admin: 05/25/19 08:01 Dose: 25 mls/hr Insulin Aspart (Novolog) 0 unit SUBCUT TIDAC [facility]; Protocol Last Admin: 05/25/19 11:29 Dose: Not Given Lisinopril (Prinivil) 10 mg PO DAILY [facility] Lorazepam (Ativan) 0 mg IVPUSH Q4H PRN; Protocol PRN Reason: Withdrawal Symptoms Lorazepam (Ativan) 1 mg IVPUSH ONETIME PRN PRN Reason: Seizures Ondansetron HCl (Zofran Odt) 4 mg PO Q4H PRN PRN Reason: nausea, able to take PO Ondansetron HCl (Zofran) 4 mg IVPUSH Q4H PRN PRN Reason: Nausea Potassium Chloride (Potassium Chloride) 40 meq PO ONETIME ONE Stop: 05/23/19 08:58 Last Admin: 05/23/19 09:16 Dose: 40 meq Thiamine HCl (Vitamin B-1) 100 mg PO ONETIME ONE Stop: 05/21/19 14:58 Last Admin: 05/21/19 16:27 Dose: 100 mg Thiamine HCl (Vitamin B-1) 100 mg PO BEDTIME [facility] Last Admin: 05/24/19 22:46 Dose: 100 mg Warfarin Sodium (Coumadin) 2 mg PO DAILY [facility] Last Admin: 05/22/19 08:39 Dose: 2 mg Warfarin Sodium (Coumadin Ask) 1 each PO DAILY [facility] Last Admin: 05/25/19 11:15 Dose: Not Given Warfarin Sodium (Coumadin) 4 mg PO DAILY ONE Stop: 05/23/19 09:01 Last Admin: 05/23/19 09:16 Dose: 4 mg Warfarin Sodium (Coumadin) 3 mg PO DAILY ONE Stop: 05/24/19 09:01 Last Admin: 05/24/19 08:45 Dose: 3 mg Warfarin Sodium (Coumadin) 4 mg PO DAILY ONE Stop: 05/25/19 11:16 Last Admin: 05/25/19 11:28 Dose: 4 mg - Free Text/Narrative Note: I have seen and evaluated the patient with the resident. I have discussed findings and treatment plan with the resident. I agree with the assessment and plan outlined in the following note.
[2019-05-25] MEDS ORDERED: Warfarin 2 MG Tab PO ONE (11:15)
[2019-05-25 13:07] VITALS: BP 125/61; PULSE 72
== END 2019-05-25 14:00 | disposition home or self-care (01) | DRG 640 ==
LOC: MW.CHIM 12:00 → MW.ICU 14:03 → MW.MS 16:20 → MW.ICU 16:28 → MW.MS 05-22 09:57 → MW.ICU 05-22 09:59 → MW.MS 05-22 12:58 → MW.ICU 05-22 13:00 → MW.MS 05-24 14:23
PROVIDERS: ADMIT Internal Medicine; ATTEND Internal Medicine
DX: E87.1 Hypo-osmolality and hyponatremia (principal); I50.33 Acute on chronic diastolic (congestive) heart failure; I11.0 Hypertensive heart disease with heart failure; I48.91 Unspecified atrial fibrillation; N26.1 Atrophy of kidney (terminal); J90 Pleural effusion, not elsewhere classified; D64.9 Anemia, unspecified; E83.42 Hypomagnesemia; F10.10 Alcohol abuse, uncomplicated; E11.9 Type 2 diabetes mellitus without complications; M10.9 Gout, unspecified; D69.6 Thrombocytopenia, unspecified; R63.1 Polydipsia; Z91.14 Patient's other noncompliance with medication regimen; Z79.01 Long term (current) use of anticoagulants; Z79.84 Long term (current) use of oral hypoglycemic drugs; Z79.899 Other long term (current) drug therapy; Z90.49 Acquired absence of other specified parts of digestive tract; Z99.81 Dependence on supplemental oxygen
CPT/HCPCS: 36415; 71046; 71046-26; 76700; 76700-26; 80048; 80053; 80061; 81001; 82272; 82570; 82728; 82962; 83036; 83550; 83735; 83880; 84133; 84295; 84300; 84443; 84540; 85025; 85610; 87086; 93005; A9270-GY; J1940; J3475; J7060

== ENCOUNTER 2019-08-03 09:02 | Inpatient (IN) | payer MEDICARE, OTHER ==
[2019-08-03] MEDS ORDERED: Metoclopramide 10 MG/2 ML SDV ONE (09:10)
[2019-08-03] MEDS ORDERED: Metoclopramide 10 MG/2 ML SDV IVPUSH ONE (09:29)
--- NOTE | 2019-08-03 09:46 | CT ---
Head CT Technique: Multiple axial sections through the brain were obtained. Intravenous contrast was not utilized. Comparison: No prior intracranial imaging is available. Findings: Ventricles along with basal cisterns and sulci over convexities are mildly prominent. Diminished density is noted within portions of the periventricular and subcortical white matter which is compatible with small vessel ischemic demyelination change. No other abnormal parenchymal density is seen. No evidence of intracranial hemorrhage. No midline shift or mass effect is seen. Mild areas of mucosal thickening are seen within the maxillary and ethmoid sinuses and frontal sinuses. No air-fluid levels are seen. Small retention cyst is noted within the inferior left maxillary sinus measuring 1.0 cm. Mastoid sinuses show nothing acute. No acute calvarial abnormality is appreciated. Mild atherosclerotic calcification is seen within the vertebral vessels and carotid siphon. Impression: 1. Mild senescent change as noted above. 2. Sinus disease is noted. This is most likely pre-existing chronic. 3. No acute intracranial abnormality is appreciated. Diagnostic code #2 This report was dictated in [place] Standard Time
--- NOTE | 2019-08-03 09:46 | CR ---
Chest: AP view of the chest was obtained. Comparison: Prior chest x-ray of 05/21/19. Small to moderate sized right-sided pleural effusion is seen. Pulmonary vessels are congested. Slight areas of atelectasis are seen within the right lung base. Bony structures are grossly intact. Impression: 1. Findings compatible with CHF. Most of the findings appear to be chronic. 2. Mild right basilar atelectasis. Diagnostic code #3 This report was dictated in [place] [employer]
[2019-08-03 10:20] LABS: BLOOD UREA NITROGEN,BUN 19 mg/dL (7.0-18.0); CARBON DIOXIDE,CO2 29.1 mmol/L (21.0-32.0); CHLORIDE,CL 85 mmol/L (98-107); GLUCOSE RANDOM 217 mg/dL (74-106); POTASSIUM,K 4.5 mmol/L (3.5-5.1); SODIUM,NA 124 mmol/L (136-148)
--- NOTE | 2019-08-03 10:40 | EDM.PDOC ---
ED HPI GENERAL MEDICAL PROBLEM - General Chief Complaint: Trauma Stated Complaint: HEAD INJURY Time Seen by Provider: 08/03/19 10:39 Source of Information: Reports: Patient History Limitations: Reports: No Limitations - History of Present Illness INITIAL COMMENTS - FREE TEXT/NARRATIVE: Patient is a 63-year-old male with a past medical history of pulmonary hypertension, CHF, COPD, atrial fibrillation on Coumadin presenting with a chief complaint of fall this morning. Patient was walking outside when he slipped on some ice fell and reported questionable loss of consciousness. Patient felt extremely nauseous afterwards but did not have any vomiting. Per EMS, he attempted to vomit several times while in route. In addition, patient reports feeling gradually worsening shortness of breath over the past several days and last night had to increase his home oxygen requirements to 6 L. Reporting dry nonproductive cough but denying any chest pain or fevers. Patient reports medication compliance. In addition to that documented in the HPI above, the additional ROS was obtained : Constitutional: Denies fevers or chills Eyes: Denies vision changes ENMT: Denies sore throat CV: Denies chest pain Resp: Per HPI GI: Denies vomiting or diarrhea : Denies painful urination MSK: No painful extremities Skin: Denies new rashes Neuro: Denies new numbness or tingling or weakness Endocrine: Denies unexpected weight loss Heme: On Coumadin I have reviewed the triage vital signs Const: Well nourished, well developed, appears stated age Eyes: PERRL, no conjunctival injection HENT: NCAT, Neck supple without meningismus CV: RRR, Warm, well-perfused extremities RESP: Bilateral rales on lung exam bases. Mild increase in respiratory rate. Initially saturating at 71% on room air before being placed on 6L nasal cannula. GI: soft, non-tender, non-distended, no masses MSK: No gross deformities appreciated Skin: Warm, dry. No rashes Neuro: Alert, manager foreign II-XII grossly intact. Sensation and motor function of extremities grossly intact. Psych: Appropriate mood and affect Assessment and plan: Patient is a 63-year-old male presenting with fall and shortness of breath. Elated PE and his CT is negative for hemorrhage. The patient does not seem to have sustained any traumatic injury of sequelae from this fall. However, the patient is historically poorly compliant with management of his medical comorbidities and has worsening of his shortness of breath. Patient is requiring 6 L of oxygen to maintain appropriate saturations. Patient's chest x- ray is consistent with a heart failure exacerbation. Patient will require admission to the hospital for diuretics and respiratory monitoring. All questions addressed and answered. Patient agrees with plan LUQ Pain Score (Numeric/FACES): 2 - Related Data Allergies Allergy/AdvReac Type Severity Reaction Status Date / Time No Known Allergies Allergy Verified 08/03/19 14:34 Home Meds: Home Meds Diltiazem HCl [Dilt-Xr] 240 mg PO DAILY 10/31/16 [History] Lisinopril 10 mg PO DAILY 12/03/18 [History] Sildenafil [Revatio] 60 mg PO DAILY PRN 12/03/18 [History] metFORMIN [Glucophage XR] 1,000 mg PO ACDINNER 12/03/18 [History] Pregabalin 75 mg PO TID PRN 05/21/19 [History] Folic Acid 1 mg PO BEDTIME 30 Days #30 tablet 05/25/19 [Rx] Budesonide/Formoterol [Symbicort 160-4.5 MCG] 2 puff INH BID 08/03/19 [History] Torsemide 60 mg PO DAILY 08/03/19 [History] Warfarin [Coumadin] 2.5 mg PO DAILY 08/03/19 [History] Past Medical History - Past Health History Medical/Surgical History: Denies Medical/Surgical History HEENT History: Reports: Other (See Below) Other HEENT History: wears glasses, has upper and lower dentures but doesn't wear them. Patient reports he gets bleeding behind his right eye Cardiovascular History: Reports: Afib, Heart Failure, Hypertension Respiratory History: Reports: COPD, Other (See Below) Gastrointestinal History: Reports: Colon Polyp Genitourinary History: Reports: Other (See Below) Musculoskeletal History: Reports: Fracture, Gout Other Musculoskeletal History: hx of fx toe Neurological History: Reports: None Psychiatric History: Reports: None Endocrine/Metabolic History: Reports: Diabetes, Type II Hematologic History: Reports: Anticoagulation Therapy Immunologic History: Reports: None Oncologic (Cancer) History: Reports: None Dermatologic History: Reports: None Other Dermatologic History: scabs on shoulders, - Infectious Disease History Infectious Disease History: Reports: Chicken Pox - Past Surgical History Head Surgeries/Procedures: Reports: None HEENT Surgical History: Reports: None Cardiovascular Surgical History: Reports: None Respiratory Surgical History: Reports: None GI Surgical History: Reports: Cholecystectomy Male Surgical History: Reports: None Endocrine Surgical History: Reports: None Neurological Surgical History: Reports: None Musculoskeletal Surgical History: Reports: Shoulder Surgery Oncologic Surgical History: Reports: None Dermatological Surgical History: Reports: None Social & Family History - Family History Family Medical History: Noncontributory - Tobacco Use Smoking Status *Q: Former Smoker Used Tobacco, but Quit: Yes Month/Year Tobacco Last Used: 4.5 years - Caffeine Use Caffeine Use: Reports: None - Recreational Drug Use Recreational Drug Use: No - Living Situation & Occupation Living situation: Reports: Occupation: Retired Review of Systems - Review of Systems Review Of Systems: See Below ED EXAM, GENERAL - Physical Exam Exam: See Below Course - Vital Signs Last Recorded V/S: Last Vital Signs Temp 36.3 C 08/03/19 16:17 Pulse 85 08/03/19 16:17 Resp 18 08/03/19 11:44 BP 137/65 08/03/19 16:17 Pulse Ox 88 L 08/03/19 16:23 - Orders/Labs/Meds Orders: Active Orders 24 hr Category Date Time Status Admission Status [Patient Status] [ADT] Stat ADT 08/03/19 10:39 Active Medication Orders Diltiazem HCl (Cardizem Cd) 240 mg PO DAILY [facility] Last Admin: 08/03/19 13:04 Dose: 240 mg Folic Acid (Folic Acid) 1 mg PO BEDTIME [facility] Insulin Aspart (Novolog) 0 unit SUBCUT TIDAC [facility]; Protocol Last Admin: 08/03/19 17:16 Dose: Lisinopril (Prinivil) 10 mg PO DAILY [facility] Last Admin: 08/03/19 13:04 Dose: 10 mg Lorazepam (Ativan) 0 mg IVPUSH Q4H PRN; Protocol PRN Reason: Withdrawal Symptoms Lorazepam (Ativan) 0 mg PO Q4H PRN; Protocol PRN Reason: Withdrawal Symptoms Budesonide/Formoterol 160-4.5 Mcg/Puff 6 Gm Inhaler 2 each INH BID [facility] Last Admin: 08/03/19 13:08 Dose: Pregabalin (Lyrica) 75 mg PO TID PRN PRN Reason: Pain Last Admin: 08/03/19 13:05 Dose: 75 mg Warfarin Sodium (Coumadin) 2.5 mg PO DAILY@1400 JADEN Last Admin: 08/03/19 13:03 Dose: 2.5 mg Labs: Laboratory Tests 08/03/19 08/03/19 08/03/19 Range/Units 09:38 09:38 09:38 WBC 7.48 (4.0-11.0) K/uL RBC 3.94 L (4.50-5.90) M/uL Hgb 11.8 L (13.0-17.0) g/dL Hct 34.6 L (38.0-50.0) % MCV 87.8 (80.0-98.0) fL MCH 29.9 (27.0-32.0) pg MCHC 34.1 (31.0-37.0) g/dL RDW Std Deviation 48.2 (28.0-62.0) fl RDW Coeff of Ijeoma 15 (11.0-15.0) % Plt Count 151 (150-400) K/uL MPV 9.70 (7.40-12.00) fL Neut % (Auto) 82.8 H (48.0-80.0) % Lymph % (Auto) 8.7 L (16.0-40.0) % [place] % (Auto) 7.4 (0.0-15.0) % Eos % (Auto) 0.4 (0.0-7.0) % Baso % (Auto) 0.7 (0.0-1.5) % Neut # (Auto) 6.2 H (1.4-5.7) K/uL Lymph # (Auto) 0.7 (0.6-2.4) K/uL [place] # (Auto) 0.6 (0.0-0.8) K/uL Eos # (Auto) 0.0 (0.0-0.7) K/uL Baso # (Auto) 0.1 (0.0-0.1) K/uL Nucleated RBC % 0.0 /100WBC Nucleated RBCs # 0 K/uL INR 1.68 Sodium 124 L (136-148) mmol/L Potassium 4.5 (3.5-5.1) mmol/L Chloride 85 L (98-107) mmol/L Carbon Dioxide 29.1 (21.0-32.0) mmol/L BUN 19 H (7.0-18.0) mg/dL Creatinine 0.9 (0.8-1.3) mg/dL Est Cr Clr Drug Dosing TNP Estimated GFR (MDRD) > 60.0 ml/min Glucose 217 H (74-106) mg/dL Calcium 9.2 (8.5-10.1) mg/dL Total Bilirubin 0.8 (0.2-1.0) mg/dL AST 30 (15-37) IU/L ALT 23 (14-63) IU/L Alkaline Phosphatase 178 H (46-116) U/L Troponin I < 0.050 (0.000-0.056) ng/mL B-Natriuretic Peptide (<100) PG/ML Total Protein 7.6 (6.4-8.2) g/dL Albumin 3.7 (3.4-5.0) g/dL Globulin 3.9 (2.6-4.0) g/dL Albumin/Globulin Ratio 0.9 (0.9-1.6) 08/03/19 Range/Units 09:38 WBC (4.0-11.0) K/uL RBC (4.50-5.90) M/uL Hgb (13.0-17.0) g/dL Hct (38.0-50.0) % MCV (80.0-98.0) fL MCH (27.0-32.0) pg MCHC (31.0-37.0) g/dL RDW Std Deviation (28.0-62.0) fl RDW Coeff of Ijeoma (11.0-15.0) % Plt Count (150-400) K/uL MPV (7.40-12.00) fL Neut % (Auto) (48.0-80.0) % Lymph % (Auto) (16.0-40.0) % [place] % (Auto) (0.0-15.0) % Eos % (Auto) (0.0-7.0) % Baso % (Auto) (0.0-1.5) % Neut # (Auto) (1.4-5.7) K/uL Lymph # (Auto) (0.6-2.4) K/uL [place] # (Auto) (0.0-0.8) K/uL Eos # (Auto) (0.0-0.7) K/uL Baso # (Auto) (0.0-0.1) K/uL Nucleated RBC % /100WBC Nucleated RBCs # K/uL INR Sodium (136-148) mmol/L Potassium (3.5-5.1) mmol/L Chloride (98-107) mmol/L Carbon Dioxide (21.0-32.0) mmol/L BUN (7.0-18.0) mg/dL Creatinine (0.8-1.3) mg/dL Est Cr Clr Drug Dosing Estimated GFR (MDRD) ml/min Glucose (74-106) mg/dL Calcium (8.5-10.1) mg/dL Total Bilirubin (0.2-1.0) mg/dL AST (15-37) IU/L ALT (14-63) IU/L Alkaline Phosphatase (46-116) U/L Troponin I (0.000-0.056) ng/mL B-Natriuretic Peptide 901 H (<100) PG/ML Total Protein (6.4-8.2) g/dL Albumin (3.4-5.0) g/dL Globulin (2.6-4.0) g/dL Albumin/Globulin Ratio (0.9-1.6) Meds: Medications Generic Name Dose Route Start Last Admin Trade Name Freq PRN Reason Stop Dose Admin Diltiazem HCl 240 mg 08/03/19 12:00 08/03/19 13:04 Cardizem Cd PO 240 mg DAILY JADEN Administration Folic Acid 1 mg 08/03/19 21:00 Folic Acid PO BEDTIME JADEN Insulin Aspart 0 unit 08/03/19 17:00 08/03/19 17:16 Novolog SUBCUT Not Given TIDAC JADEN Protocol Lisinopril 10 mg 08/03/19 12:00 08/03/19 13:04 Prinivil PO 10 mg DAILY JADEN Administration Lorazepam 0 mg 08/03/19 11:44 Ativan IVPUSH Q4H PRN Withdrawal Symptoms Protocol Lorazepam 0 mg 08/03/19 11:47 Ativan PO Q4H PRN Withdrawal Symptoms Protocol Budesonide/ 2 each 08/03/19 12:00 08/03/19 13:08 Formoterol 160-4.5 INH Not Given Mcg/Puff 6 Gm BID [facility] Inhaler Pregabalin 75 mg 08/03/19 11:47 08/03/19 13:05 Lyrica PO 75 mg TID PRN Administration Pain Warfarin Sodium 2.5 mg 08/03/19 14:00 08/03/19 13:03 Coumadin PO 2.5 mg DAILY@1400 JADEN Administration Discontinued Medications Generic Name Dose Route Start Last Admin Trade Name Freq PRN Reason Stop Dose Admin Furosemide 40 mg 08/03/19 11:44 08/03/19 13:05 Lasix IVPUSH 08/03/19 11:45 40 mg NOW ONE Administration Metoclopramide HCl Confirm 08/03/19 09:10 08/03/19 09:29 Reglan Administered 08/03/19 09:11 Not Given Dose 10 mg .ROUTE .STK-MED ONE Metoclopramide HCl 10 mg 08/03/19 09:29 08/03/19 10:23 Reglan IVPUSH 08/03/19 09:30 10 mg ONETIME ONE Administration Warfarin Sodium 2.5 mg 08/03/19 12:00 08/03/19 12:56 Coumadin PO Not Given DAILY [facility] Departure - Departure Time of Disposition: 10:39 Disposition: Refer to Observation Clinical Impression: CHF (congestive heart failure) - Discharge Information Sepsis Event Note - Evaluation Sepsis Screening Result: No Definite Risk - Focused Exam Vital Signs: Vital Signs Temp Pulse Resp BP Pulse Ox 08/03/19 09:00 36.1 C 86 16 150/79 H 71 L Date Exam was Performed: 08/03/19 Time Exam was Performed: 17:24 - My Orders Last 24 Hours: My Active Orders 08/03/19 10:39 Admission Status [Patient Status] [ADT] Stat - Assessment/Plan Last 24 Hours: My Active Orders 08/03/19 10:39 Admission Status [Patient Status] [ADT] Stat
[2019-08-03] MEDS ORDERED: Furosemide 40 MG/4 ML VIAL IVPUSH ONE (11:44)
[2019-08-03] MEDS ORDERED: LORazepam 2 MG/ML SDV IVPUSH PRN (11:44)
[2019-08-03] MEDS ORDERED: LORazepam 1 MG Tab PO PRN (11:47)
[2019-08-03] MEDS ORDERED: Pregabalin 75 MG Cap PO PRN (11:47)
--- NOTE | 2019-08-03 11:49 | PCM.HP.2 ---
H&P History of Present Illness - General Date of Service: 08/03/19 Admit Problem/Dx: Admission Diagnosis/Problem Admission Diagnosis/Problem CHF, Congestive heart failure - History of Present Illness Initial Comments - Free Text/Narative: The patient is a 63 year old male with past medical history of Afib, COPD, CHF, HTN, and alcohol use who presented after passing out. States he was walking out from gas station, felt like he was losing his air, then remembers waking up on the ground. Family states he passed out, not sure if he hit his head, no headache, no vision changes, tried to vomit in ambulance. Reports that this morning his O2 sat was 65% on his baseline 4 L of home oxygen. Reports wheezing , orthopnea, and weight gain. Denies fever/chills, chest pain, cough. Last echo was Jun 2019 with EF of 60-65%. Patient reports he drinks 18 beers a day but denies hx of withdrawal symptoms or withdrawal seizures. In the ER, work up showed no leukocytosis, chronic anemia at baseline, INR of 1.68, Na of 124, negative troponin. BNP of 901. CXR showed right pleural effusion and pulmonary vessel congestion. Head CT showed no acute findings. EKG showed Afib, rate controlled, and old LBBB. LUQ Pain Score (Numeric/FACES): 2 - Related Data Allergies/Adverse Reactions: Allergies Allergy/AdvReac Type Severity Reaction Status Date / Time No Known Allergies Allergy Verified 08/03/19 09:35 Home Medications: Home Meds Diltiazem HCl [Dilt-Xr] 240 mg PO DAILY 10/31/16 [History] Lisinopril 10 mg PO DAILY 12/03/18 [History] Sildenafil [Revatio] 60 mg PO DAILY PRN 12/03/18 [History] metFORMIN [Glucophage XR] 1,000 mg PO ACDINNER 12/03/18 [History] Pregabalin 75 mg PO TID PRN 05/21/19 [History] Folic Acid 1 mg PO BEDTIME 30 Days #30 tablet 05/25/19 [Rx] Budesonide/Formoterol [Symbicort 160-4.5 MCG] 2 puff INH BID 08/03/19 [History] Torsemide 60 mg PO DAILY 08/03/19 [History] Warfarin [Coumadin] 2.5 mg PO DAILY 08/03/19 [History] Past Medical History - Past Health History Medical/Surgical History: Denies Medical/Surgical History HEENT History: Reports: Other (See Below) Other HEENT History: wears glasses, has upper and lower dentures but doesn't wear them. Patient reports he gets bleeding behind his right eye Cardiovascular History: Reports: Afib, Heart Failure, Hypertension Respiratory History: Reports: COPD, Other (See Below) Gastrointestinal History: Reports: Colon Polyp Genitourinary History: Reports: Other (See Below) Musculoskeletal History: Reports: Fracture, Gout Other Musculoskeletal History: hx of fx toe Neurological History: Reports: None Psychiatric History: Reports: None Endocrine/Metabolic History: Reports: Diabetes, Type II Hematologic History: Reports: Anticoagulation Therapy Immunologic History: Reports: None Oncologic (Cancer) History: Reports: None Dermatologic History: Reports: None Other Dermatologic History: scabs on shoulders, - Infectious Disease History Infectious Disease History: Reports: Chicken Pox - Past Surgical History Head Surgeries/Procedures: Reports: None HEENT Surgical History: Reports: None Cardiovascular Surgical History: Reports: None Respiratory Surgical History: Reports: None GI Surgical History: Reports: Cholecystectomy Male Surgical History: Reports: None Endocrine Surgical History: Reports: None Neurological Surgical History: Reports: None Musculoskeletal Surgical History: Reports: Shoulder Surgery Oncologic Surgical History: Reports: None Dermatological Surgical History: Reports: None Social & Family History - Family History Family Medical History: Noncontributory - Tobacco Use Smoking Status *Q: Former Smoker Used Tobacco, but Quit: Yes Month/Year Tobacco Last Used: 4.5 years - Caffeine Use Caffeine Use: Reports: None - Recreational Drug Use Recreational Drug Use: No - Living Situation & Occupation Living situation: Reports: Occupation: Retired H&P Review of Systems - Review of Systems: Review Of Systems: See Below General: Reports: No Symptoms HEENT: Reports: No Symptoms Pulmonary: Reports: Shortness of Breath, Wheezing. Denies: Cough Cardiovascular: Reports: Orthopnea. Denies: Chest Pain, Edema Gastrointestinal: Reports: No Symptoms Genitourinary: Reports: No Symptoms Musculoskeletal: Reports: No Symptoms Skin: Reports: No Symptoms Psychiatric: Reports: No Symptoms Neurological: Reports: No Symptoms Hematologic/Lymphatic: Reports: Anemia Immunologic: Reports: No Symptoms Exam - Exam Exam: See Below - Vital Signs Vital Signs: Last Vital Signs Temp 96.9 F 08/03/19 09:00 Pulse 86 08/03/19 09:00 Resp 16 08/03/19 09:00 BP 150/79 H 08/03/19 09:00 Pulse Ox 71 L 08/03/19 09:00 Weight: 88.9 kg - Exam General: Alert, Oriented, Cooperative HEENT: Conjunctiva Clear, EOMI, Mucosa Moist & [place], Posterior Pharynx Clear, Other (left pupil dilated (Had come from eye exam where they dilated his eye)) Lungs: Crackles. No: Normal Respiratory Effort Cardiovascular: Regular Rate, Regular Rhythm GI/Abdominal Exam: Normal Bowel Sounds, Soft, Non-Tender, No Distention Extremities: No Pedal Edema Skin: Warm, Dry Neurological: Cranial Nerves Intact Psychiatric: Alert, Normal Affect, Normal Mood - Patient Data Lab Results Last 24 hrs: Laboratory Results - last 24 hr 08/03/19 08/03/19 08/03/19 Range/Units 09:38 09:38 09:38 WBC 7.48 (4.0-11.0) K/uL RBC 3.94 L (4.50-5.90) M/uL Hgb 11.8 L (13.0-17.0) g/dL Hct 34.6 L (38.0-50.0) % MCV 87.8 (80.0-98.0) fL MCH 29.9 (27.0-32.0) pg MCHC 34.1 (31.0-37.0) g/dL RDW Std Deviation 48.2 (28.0-62.0) fl RDW Coeff of [place]je[place] 15 (11.0-15.0) % Plt Count 151 (150-400) K/uL MPV 9.70 (7.40-12.00) fL Neut % (Auto) 82.8 H (48.0-80.0) % Lymph % (Auto) 8.7 L (16.0-40.0) % [place] % (Auto) 7.4 (0.0-15.0) % Eos % (Auto) 0.4 (0.0-7.0) % Baso % (Auto) 0.7 (0.0-1.5) % Neut # (Auto) 6.2 H (1.4-5.7) K/uL Lymph # (Auto) 0.7 (0.6-2.4) K/uL [place] # (Auto) 0.6 (0.0-0.8) K/uL Eos # (Auto) 0.0 (0.0-0.7) K/uL Baso # (Auto) 0.1 (0.0-0.1) K/uL Nucleated RBC % 0.0 /100WBC Nucleated RBCs # 0 K/uL INR 1.68 Sodium 124 L (136-148) mmol/L Potassium 4.5 (3.5-5.1) mmol/L Chloride 85 L (98-107) mmol/L Carbon Dioxide 29.1 (21.0-32.0) mmol/L BUN 19 H (7.0-18.0) mg/dL Creatinine 0.9 (0.8-1.3) mg/dL Est Cr Clr Drug Dosing TNP Estimated GFR (MDRD) > 60.0 ml/min Glucose 217 H (74-106) mg/dL Calcium 9.2 (8.5-10.1) mg/dL Total Bilirubin 0.8 (0.2-1.0) mg/dL AST 30 (15-37) IU/L ALT 23 (14-63) IU/L Alkaline Phosphatase 178 H (46-116) U/L Troponin I < 0.050 (0.000-0.056) ng/mL B-Natriuretic Peptide (<100) PG/ML Total Protein 7.6 (6.4-8.2) g/dL Albumin 3.7 (3.4-5.0) g/dL Globulin 3.9 (2.6-4.0) g/dL Albumin/Globulin Ratio 0.9 (0.9-1.6) 08/03/19 Range/Units 09:38 WBC (4.0-11.0) K/uL RBC (4.50-5.90) M/uL Hgb (13.0-17.0) g/dL Hct (38.0-50.0) % MCV (80.0-98.0) fL MCH (27.0-32.0) pg MCHC (31.0-37.0) g/dL RDW Std Deviation (28.0-62.0) fl RDW Coeff of [place]je[place] (11.0-15.0) % Plt Count (150-400) K/uL MPV (7.40-12.00) fL Neut % (Auto) (48.0-80.0) % Lymph % (Auto) (16.0-40.0) % [place] % (Auto) (0.0-15.0) % Eos % (Auto) (0.0-7.0) % Baso % (Auto) (0.0-1.5) % Neut # (Auto) (1.4-5.7) K/uL Lymph # (Auto) (0.6-2.4) K/uL [place] # (Auto) (0.0-0.8) K/uL Eos # (Auto) (0.0-0.7) K/uL Baso # (Auto) (0.0-0.1) K/uL Nucleated RBC % /100WBC Nucleated RBCs # K/uL INR Sodium (136-148) mmol/L Potassium (3.5-5.1) mmol/L Chloride (98-107) mmol/L Carbon Dioxide (21.0-32.0) mmol/L BUN (7.0-18.0) mg/dL Creatinine (0.8-1.3) mg/dL Est Cr Clr Drug Dosing Estimated GFR (MDRD) ml/min Glucose (74-106) mg/dL Calcium (8.5-10.1) mg/dL Total Bilirubin (0.2-1.0) mg/dL AST (15-37) IU/L ALT (14-63) IU/L Alkaline Phosphatase (46-116) U/L Troponin I (0.000-0.056) ng/mL B-Natriuretic Peptide 901 H (<100) PG/ML Total Protein (6.4-8.2) g/dL Albumin (3.4-5.0) g/dL Globulin (2.6-4.0) g/dL Albumin/Globulin Ratio (0.9-1.6) Result Diagrams: 08/03/19 09:38 08/03/19 09:38 Sepsis Event Note - Evaluation Sepsis Screening Result: No Definite Risk - Focused Exam Vital Signs: Vital Signs Temp Pulse Resp BP Pulse Ox 08/03/19 09:00 96.9 F 86 16 150/79 H 71 L Date Exam was Performed: 08/03/19 Time Exam was Performed: 12:01 Problem List Initiated/Reviewed/Updated: Yes Orders Last 24hrs: Active Orders 24 hr Category Date Time Status Admission Status [Patient Status] [ADT] Stat ADT 08/03/19 10:39 Active Patient Status [ADT] Routine ADT 08/03/19 11:44 Ordered CIWAA Assessment [RC] ASDIRECTED Care 08/03/19 11:44 Ordered Height and Weight [RC] DAILY Care 08/03/19 11:44 Ordered Intake and Output Strict [RC] ASDIRECTED Care 08/03/19 11:44 Ordered Vital Signs [RC] PER UNIT ROUTINE Care 08/03/19 11:44 Ordered Fluid Restriction [DIET] Diet 08/03/19 Dinner Ordered Heart Healthy Diet [DIET] Diet 08/03/19 Lunch Ordered BASIC METABOLIC PANEL,BMP [CHEM] Timed Lab 08/03/19 17:00 Ordered Budesonide/Formoterol [Symbicort 160-4.5 MCG] Med 08/03/19 12:00 Ordered 2 puff INH BID Diltiazem Med 08/03/19 12:00 Ordered 240 mg PO DAILY Folic Acid Med 08/03/19 21:00 Ordered 1 mg PO BEDTIME LORazepam [Ativan] Med 08/03/19 11:44 Ordered See Protocol IVPUSH Q4H PRN LORazepam [Ativan] Med 08/03/19 11:47 Ordered See Protocol PO Q4H PRN Pregabalin [Lyrica] Med 08/03/19 11:47 Ordered 75 mg PO TID PRN Warfarin [Coumadin] Med 08/03/19 12:00 Ordered 2.5 mg PO DAILY lisinopriL [Prinivil] Med 08/03/19 12:00 Ordered 10 mg PO DAILY Resuscitation Status Routine Resus Stat 08/03/19 11:44 Ordered Medication Orders Budesonide/Formoterol Fumarate (Symbicort 160-4.5 Mcg) gm INH BID JADEN Folic Acid (Folic Acid) 1 mg PO BEDTIME JADEN Lisinopril (Prinivil) 10 mg PO DAILY JADEN Lorazepam (Ativan) 0 mg IVPUSH Q4H PRN; Protocol PRN Reason: Withdrawal Symptoms Lorazepam (Ativan) 0 mg PO Q4H PRN; Protocol PRN Reason: Withdrawal Symptoms Non-Formulary Medication (Diltiazem) 240 mg PO DAILY [facility] Pregabalin (Lyrica) 75 mg PO TID PRN PRN Reason: Pain Warfarin Sodium (Coumadin) 2.5 mg PO DAILY [facility] Assessment/Plan Comment:: 1. Admit to inpatient 2. Code status- full 3. Vitals per routine 4. I/Os strict 5. Diet- heart healthy 6. DVT prophylaxis- on warfarin 7. Acute on chronic hypoxic respiratory failure likely secondary to CHF exacerbation- Strict I/Os, 2L FR, daily weights, IV 40 mg of lasix, repeat BMP this afternoon. 8. Hyponatremia- fluid restrict, IV lasix, recheck BMP 9. Chronic anemia- at baseline, continue to monitor 10. Alcohol use- CIWA/Ativan protocol for possible withdrawal. Continue Thiamine and folic acid. 11. Chronic conditions- Afib, HTN, DMII- monitor on telemetry, continue home meds, sliding scale and accuchecks
[2019-08-03] MEDS ORDERED: Warfarin 2.5 MG Tab PO SCH ×2 (12:00→14:00)
[2019-08-03] MEDS: Diltiazem 120 MG Cap.CD PO SCH (13:04)
[2019-08-03] MEDS: Lisinopril 5 MG Tab PO SCH (13:04)
[2019-08-03] MEDS: Budesonide/Formoterol 160-4.5 MCG/Puff 6 GM Inhaler INH SCH ×2 (13:08→20:00)
[2019-08-03] MEDS: Insulin Aspart 100 Units/ML 3 ML Pen SUBCUT SCH (17:16)
[2019-08-03 17:41] LABS: BLOOD UREA NITROGEN,BUN 18 mg/dL (7.0-18.0); CARBON DIOXIDE,CO2 35.8 mmol/L (21.0-32.0); CHLORIDE,CL 89 mmol/L (98-107); GLUCOSE RANDOM 145 mg/dL (74-106); POTASSIUM,K 4.4 mmol/L (3.5-5.1); SODIUM,NA 129 mmol/L (136-148)
[2019-08-03] MEDS: Folic Acid 1 MG Tab PO SCH (20:00)
[2019-08-04] MEDS ORDERED: Furosemide 40 MG/4 ML VIAL IVPUSH ONE ×2 (04:04→10:00)
[2019-08-04] MEDS ORDERED: Albuterol/Ipratropium 3.0-0.5 MG/3 ML Neb Soln NEB PRN (04:06)
[2019-08-04 05:31] LABS: BLOOD UREA NITROGEN,BUN 17 mg/dL (7.0-18.0); CARBON DIOXIDE,CO2 32.7 mmol/L (21.0-32.0); CHLORIDE,CL 92 mmol/L (98-107); GLUCOSE RANDOM 150 mg/dL (74-106); SODIUM,NA 130 mmol/L (136-148)
[2019-08-04] MEDS: Insulin Aspart 100 Units/ML 3 ML Pen SUBCUT SCH ×3 (06:53→17:25)
[2019-08-04] MEDS: Diltiazem 120 MG Cap.CD PO SCH (08:27)
[2019-08-04] MEDS: Lisinopril 5 MG Tab PO SCH (08:28)
[2019-08-04] MEDS: Budesonide/Formoterol 160-4.5 MCG/Puff 6 GM Inhaler INH SCH ×2 (09:53→21:01)
--- NOTE | 2019-08-04 12:19 | PCM.PN ---
- General Info Date of Service: 08/04/19 - Review of Systems Systems Review Comment:: breathing has improved, denies any tremors, chest pain, or fevers - Patient Data Vitals - Most Recent: Last Vital Signs Temp 36.0 C 08/04/19 11:48 Pulse 71 08/04/19 11:48 Resp 20 08/04/19 11:48 BP 118/58 L 08/04/19 11:48 Pulse Ox 92 L 08/04/19 11:48 Weight - Most Recent: 86.7 kg I&O - Last 24 Hours: Intake & Output 08/03/19 08/04/19 08/04/19 22:59 06:59 14:59 Intake Total 200 350 120 Output Total 750 850 Balance -550 -500 120 Lab Results Last 24 Hours: Laboratory Results - last 24 hr 08/03/19 08/03/19 08/04/19 Range/Units 16:58 17:05 04:38 WBC 8.23 (4.0-11.0) K/uL RBC 3.57 L (4.50-5.90) M/uL Hgb 10.7 L (13.0-17.0) g/dL Hct 31.6 L (38.0-50.0) % MCV 88.5 (80.0-98.0) fL MCH 30.0 (27.0-32.0) pg MCHC 33.9 (31.0-37.0) g/dL RDW Std Deviation 48.6 (28.0-62.0) fl RDW Coeff of Ijeoma 15 (11.0-15.0) % Plt Count 161 (150-400) K/uL MPV 9.50 (7.40-12.00) fL Neut % (Auto) 80.2 H (48.0-80.0) % Lymph % (Auto) 6.8 L (16.0-40.0) % Ida % (Auto) 12.0 (0.0-15.0) % Eos % (Auto) 0.5 (0.0-7.0) % Baso % (Auto) 0.5 (0.0-1.5) % Neut # (Auto) 6.6 H (1.4-5.7) K/uL Lymph # (Auto) 0.6 (0.6-2.4) K/uL Ida # (Auto) 1.0 H (0.0-0.8) K/uL Eos # (Auto) 0.0 (0.0-0.7) K/uL Baso # (Auto) 0.0 (0.0-0.1) K/uL Nucleated RBC % 0.0 /100WBC Nucleated RBCs # 0 K/uL INR Sodium 129 L (136-148) mmol/L Potassium 4.4 (3.5-5.1) mmol/L Chloride 89 L (98-107) mmol/L Carbon Dioxide 35.8 H (21.0-32.0) mmol/L BUN 18 (7.0-18.0) mg/dL Creatinine 0.8 (0.8-1.3) mg/dL Est Cr Clr Drug Dosing TNP Estimated GFR (MDRD) > 60.0 ml/min Glucose 145 H (74-106) mg/dL POC Glucose 145 H (60-110) mg/dL Calcium 9.3 (8.5-10.1) mg/dL 08/04/19 08/04/19 08/04/19 Range/Units 04:38 04:38 06:23 WBC (4.0-11.0) K/uL RBC (4.50-5.90) M/uL Hgb (13.0-17.0) g/dL Hct (38.0-50.0) % MCV (80.0-98.0) fL MCH (27.0-32.0) pg MCHC (31.0-37.0) g/dL RDW Std Deviation (28.0-62.0) fl RDW Coeff of Ijeoma (11.0-15.0) % Plt Count (150-400) K/uL MPV (7.40-12.00) fL Neut % (Auto) (48.0-80.0) % Lymph % (Auto) (16.0-40.0) % Ida % (Auto) (0.0-15.0) % Eos % (Auto) (0.0-7.0) % Baso % (Auto) (0.0-1.5) % Neut # (Auto) (1.4-5.7) K/uL Lymph # (Auto) (0.6-2.4) K/uL Ida # (Auto) (0.0-0.8) K/uL Eos # (Auto) (0.0-0.7) K/uL Baso # (Auto) (0.0-0.1) K/uL Nucleated RBC % /100WBC Nucleated RBCs # K/uL INR 1.44 Sodium 130 L (136-148) mmol/L Potassium 4.0 (3.5-5.1) mmol/L Chloride 92 L (98-107) mmol/L Carbon Dioxide 32.7 H (21.0-32.0) mmol/L BUN 17 (7.0-18.0) mg/dL Creatinine 0.8 (0.8-1.3) mg/dL Est Cr Clr Drug Dosing TNP Estimated GFR (MDRD) > 60.0 ml/min Glucose 150 H (74-106) mg/dL POC Glucose 150 H (60-110) mg/dL Calcium 9.3 (8.5-10.1) mg/dL 08/04/19 Range/Units 11:22 WBC (4.0-11.0) K/uL RBC (4.50-5.90) M/uL Hgb (13.0-17.0) g/dL Hct (38.0-50.0) % MCV (80.0-98.0) fL MCH (27.0-32.0) pg MCHC (31.0-37.0) g/dL RDW Std Deviation (28.0-62.0) fl RDW Coeff of Ijeoma (11.0-15.0) % Plt Count (150-400) K/uL MPV (7.40-12.00) fL Neut % (Auto) (48.0-80.0) % Lymph % (Auto) (16.0-40.0) % Ida % (Auto) (0.0-15.0) % Eos % (Auto) (0.0-7.0) % Baso % (Auto) (0.0-1.5) % Neut # (Auto) (1.4-5.7) K/uL Lymph # (Auto) (0.6-2.4) K/uL Ida # (Auto) (0.0-0.8) K/uL Eos # (Auto) (0.0-0.7) K/uL Baso # (Auto) (0.0-0.1) K/uL Nucleated RBC % /100WBC Nucleated RBCs # K/uL INR Sodium (136-148) mmol/L Potassium (3.5-5.1) mmol/L Chloride (98-107) mmol/L Carbon Dioxide (21.0-32.0) mmol/L BUN (7.0-18.0) mg/dL Creatinine (0.8-1.3) mg/dL Est Cr Clr Drug Dosing Estimated GFR (MDRD) ml/min Glucose (74-106) mg/dL POC Glucose 141 H (60-110) mg/dL Calcium (8.5-10.1) mg/dL Med Orders - Current: Current Medications Albuterol/Ipratropium (Duoneb 3.0-0.5 Mg/3 Ml) 3 ml NEB Q6HRRT PRN PRN Reason: Shortness of Breath Last Admin: 08/04/19 04:30 Dose: 3 ml Diltiazem HCl (Cardizem Cd) 240 mg PO DAILY [facility] Last Admin: 08/04/19 08:27 Dose: 240 mg Folic Acid (Folic Acid) 1 mg PO BEDTIME [facility] Last Admin: 08/03/19 20:00 Dose: 1 mg Insulin Aspart (Novolog) 0 unit SUBCUT TIDAC [facility]; Protocol Last Admin: 08/04/19 11:35 Dose: Not Given Lisinopril (Prinivil) 10 mg PO DAILY [facility] Last Admin: 08/04/19 08:28 Dose: Not Given Lorazepam (Ativan) 0 mg IVPUSH Q4H PRN; Protocol PRN Reason: Withdrawal Symptoms Lorazepam (Ativan) 0 mg PO Q4H PRN; Protocol PRN Reason: Withdrawal Symptoms Budesonide/Formoterol 160-4.5 Mcg/Puff 6 Gm Inhaler 2 each INH BID [facility] Last Admin: 08/04/19 09:53 Dose: Not Given Pregabalin (Lyrica) 75 mg PO TID PRN PRN Reason: Pain Last Admin: 08/03/19 13:05 Dose: 75 mg Warfarin Sodium (Coumadin) 5 mg PO 08/04/19@1400 [facility] Stop: 08/04/19 14:01 Warfarin Sodium (Coumadin Ask) 1 each PO DAILY@1400 [facility] Discontinued Medications Furosemide (Lasix) 40 mg IVPUSH NOW ONE Stop: 08/03/19 11:45 Last Admin: 08/03/19 13:05 Dose: 40 mg Furosemide (Lasix) 40 mg IVPUSH NOW ONE Stop: 08/04/19 04:05 Last Admin: 08/04/19 04:19 Dose: 40 mg Furosemide (Lasix) 40 mg IVPUSH NOW ONE Stop: 08/04/19 10:01 Last Admin: 08/04/19 10:48 Dose: 40 mg Metoclopramide HCl (Reglan) Confirm Administered Dose 10 mg .ROUTE .STK-MED ONE Stop: 08/03/19 09:11 Last Admin: 08/03/19 09:29 Dose: Not Given Metoclopramide HCl (Reglan) 10 mg IVPUSH ONETIME ONE Stop: 08/03/19 09:30 Last Admin: 08/03/19 10:23 Dose: 10 mg Warfarin Sodium (Coumadin) 2.5 mg PO DAILY [facility] Last Admin: 08/03/19 12:56 Dose: Not Given Warfarin Sodium (Coumadin) 2.5 mg PO DAILY@1400 [facility] Last Admin: 08/03/19 13:03 Dose: 2.5 mg - Exam General: Alert, Oriented Neck: Supple Lungs: Normal Respiratory Effort, Decreased Breath Sounds Cardiovascular: Regular Rate, Regular Rhythm Extremities: Non-Tender, No Pedal Edema Skin: Warm, Dry, Intact Neurological: No New Focal Deficit Sepsis Event Note - Evaluation Sepsis Screening Result: No Definite Risk - Focused Exam Vital Signs: Vital Signs Temp Pulse Pulse Resp BP BP Pulse Ox 08/04/19 11:48 36.0 C 71 20 118/58 L 92 L 08/04/19 08:28 107/55 L 08/04/19 08:27 86 107/55 L 08/04/19 08:22 86 107/55 L 08/04/19 07:47 36.6 C 78 12 129/67 93 L 08/04/19 07:45 88 L 08/04/19 06:00 75 96 08/04/19 04:00 78 20 95 08/04/19 03:25 36.7 C 81 20 105/57 L 83 L Date Exam was Performed: 08/04/19 Time Exam was Performed: 12:15 - Problem List Review Problem List Initiated/Reviewed/Updated: Yes - My Orders Last 24 Hours: My Active Orders 08/04/19 04:06 Albuterol/Ipratropium [DuoNeb 3.0-0.5 MG/3 ML] 3 ml NEB Q6HRRT PRN 08/04/19 04:07 RT Aerosol Therapy [RC] ASDIRECTED 08/04/19 14:00 Warfarin [Coumadin] 5 mg PO 08/04/19@1400 08/04/19 16:00 Furosemide [Lasix] 40 mg IVPUSH BIDDIURETIC 08/05/19 14:00 Warfarin Dosing [Coumadin Ask] 1 each PO DAILY@1400 - Plan Plan:: 63 yo male admitted for CHF exacerbation and hyponatremia from alcohol abuse CHF exacerbation with acute on chronic hypoxic respiratory failure. Continue diuresing with lasix, strict i/os, requring supplemental oxygen and will wean as tolerated. Hyponatremia: improving sodium 130 today Alcohol abuse, continue CIWAA/Ativan protocol, thiamin and folic acid.
[2019-08-04] MEDS ORDERED: Warfarin 5 MG Tab PO SCH (14:00)
[2019-08-04] MEDS: Furosemide 40 MG/4 ML VIAL IVPUSH SCH (16:38)
[2019-08-04] MEDS: Folic Acid 1 MG Tab PO SCH (20:59)
[2019-08-05 06:29] LABS: BLOOD UREA NITROGEN,BUN 17 mg/dL (7.0-18.0); CARBON DIOXIDE,CO2 35.3 mmol/L (21.0-32.0); CHLORIDE,CL 93 mmol/L (98-107); GLUCOSE RANDOM 140 mg/dL (74-106); POTASSIUM,K 3.9 mmol/L (3.5-5.1); SODIUM,NA 133 mmol/L (136-148)
[2019-08-05] MEDS: Insulin Aspart 100 Units/ML 3 ML Pen SUBCUT SCH ×3 (07:01→17:24)
[2019-08-05] MEDS ORDERED: Magnesium Sulfate/Water 2 GM in Premix Bag 1 BAG IV ONE (07:06)
[2019-08-05] MEDS: Budesonide/Formoterol 160-4.5 MCG/Puff 6 GM Inhaler INH SCH ×2 (08:26→21:13)
[2019-08-05] MEDS: Furosemide 40 MG/4 ML VIAL IVPUSH SCH ×2 (08:29→14:00)
[2019-08-05] MEDS: Diltiazem 120 MG Cap.CD PO SCH (08:35)
--- NOTE | 2019-08-05 08:40 | PCM.PN ---
- General Info Date of Service: 08/05/19 Subjective Update: Patient reports feeling better but doesn't think he is ready to go home. Is on 4 L of oxygen at home. Was satting well yesterday on 4 L but overnight it was increased to 6 L. Patient states he doesn't know why they did it because he was dropping and he was feeling SOB. Denies chest pain or edema. - Review of Systems General: Reports: No Symptoms HEENT: Reports: No Symptoms Pulmonary: Reports: Shortness of Breath, Cough Cardiovascular: Reports: No Symptoms Gastrointestinal: Reports: No Symptoms Genitourinary: Reports: No Symptoms Musculoskeletal: Reports: No Symptoms Skin: Reports: No Symptoms Neurological: Reports: No Symptoms Psychiatric: Reports: No Symptoms - Patient Data Vitals - Most Recent: Last Vital Signs Temp 97.9 F 08/05/19 07:15 Pulse 98 08/05/19 07:15 Resp 21 H 08/05/19 07:15 BP 137/65 08/05/19 07:15 Pulse Ox 95 08/05/19 07:15 Weight - Most Recent: 85.23 kg I&O - Last 24 Hours: Intake & Output 08/04/19 08/05/19 08/05/19 22:59 06:59 14:59 Intake Total 500 380 Output Total 1075 1100 Balance -575 -720 Lab Results Last 24 Hours: Laboratory Results - last 24 hr 08/04/19 08/04/19 08/05/19 Range/Units 11:22 16:47 05:20 WBC 9.34 (4.0-11.0) K/uL RBC 3.64 L (4.50-5.90) M/uL Hgb 11.0 L (13.0-17.0) g/dL Hct 32.8 L (38.0-50.0) % MCV 90.1 (80.0-98.0) fL MCH 30.2 (27.0-32.0) pg MCHC 33.5 (31.0-37.0) g/dL RDW Std Deviation 49.9 (28.0-62.0) fl RDW Coeff of Ijeoma 15 (11.0-15.0) % Plt Count 188 (150-400) K/uL MPV 9.90 (7.40-12.00) fL Neut % (Auto) 79.2 (48.0-80.0) % Lymph % (Auto) 9.3 L (16.0-40.0) % [place] % (Auto) 9.6 (0.0-15.0) % Eos % (Auto) 1.4 (0.0-7.0) % Baso % (Auto) 0.5 (0.0-1.5) % Neut # (Auto) 7.4 H (1.4-5.7) K/uL Lymph # (Auto) 0.9 (0.6-2.4) K/uL [place] # (Auto) 0.9 H (0.0-0.8) K/uL Eos # (Auto) 0.1 (0.0-0.7) K/uL Baso # (Auto) 0.1 (0.0-0.1) K/uL Nucleated RBC % 0.0 /100WBC Nucleated RBCs # 0 K/uL INR Sodium (136-148) mmol/L Potassium (3.5-5.1) mmol/L Chloride (98-107) mmol/L Carbon Dioxide (21.0-32.0) mmol/L BUN (7.0-18.0) mg/dL Creatinine (0.8-1.3) mg/dL Est Cr Clr Drug Dosing Estimated GFR (MDRD) ml/min Glucose (74-106) mg/dL POC Glucose 141 H 176 H (60-110) mg/dL Calcium (8.5-10.1) mg/dL Phosphorus (2.6-4.7) mg/dL Magnesium (1.8-2.4) mg/dL 08/05/19 08/05/19 08/05/19 Range/Units 05:20 05:20 06:29 WBC (4.0-11.0) K/uL RBC (4.50-5.90) M/uL Hgb (13.0-17.0) g/dL Hct (38.0-50.0) % MCV (80.0-98.0) fL MCH (27.0-32.0) pg MCHC (31.0-37.0) g/dL RDW Std Deviation (28.0-62.0) fl RDW Coeff of Ijeoma (11.0-15.0) % Plt Count (150-400) K/uL MPV (7.40-12.00) fL Neut % (Auto) (48.0-80.0) % Lymph % (Auto) (16.0-40.0) % [place] % (Auto) (0.0-15.0) % Eos % (Auto) (0.0-7.0) % Baso % (Auto) (0.0-1.5) % Neut # (Auto) (1.4-5.7) K/uL Lymph # (Auto) (0.6-2.4) K/uL [place] # (Auto) (0.0-0.8) K/uL Eos # (Auto) (0.0-0.7) K/uL Baso # (Auto) (0.0-0.1) K/uL Nucleated RBC % /100WBC Nucleated RBCs # K/uL INR 1.32 Sodium 133 L (136-148) mmol/L Potassium 3.9 (3.5-5.1) mmol/L Chloride 93 L (98-107) mmol/L Carbon Dioxide 35.3 H (21.0-32.0) mmol/L BUN 17 (7.0-18.0) mg/dL Creatinine 0.8 (0.8-1.3) mg/dL Est Cr Clr Drug Dosing TNP Estimated GFR (MDRD) > 60.0 ml/min Glucose 140 H (74-106) mg/dL POC Glucose 140 H (60-110) mg/dL Calcium 9.4 (8.5-10.1) mg/dL Phosphorus 3.8 (2.6-4.7) mg/dL Magnesium 1.7 L (1.8-2.4) mg/dL Med Orders - Current: Current Medications Albuterol/Ipratropium (Duoneb 3.0-0.5 Mg/3 Ml) 3 ml NEB Q6HRRT PRN PRN Reason: Shortness of Breath Last Admin: 08/04/19 04:30 Dose: 3 ml Diltiazem HCl (Cardizem Cd) 240 mg PO DAILY [facility] Last Admin: 08/04/19 08:27 Dose: 240 mg Folic Acid (Folic Acid) 1 mg PO BEDTIME [facility] Last Admin: 08/04/19 20:59 Dose: 1 mg Furosemide (Lasix) 40 mg IVPUSH BIDDIURETIC [facility] Last Admin: 08/05/19 08:29 Dose: 40 mg Magnesium Sulfate 2 gm/ Premix 50 mls @ 25 mls/hr IV ONETIME ONE Stop: 08/05/19 09:05 Last Admin: 08/05/19 08:18 Dose: 25 mls/hr Insulin Aspart (Novolog) 0 unit SUBCUT TIDAC [facility]; Protocol Last Admin: 08/05/19 07:01 Dose: Not Given Lisinopril (Prinivil) 10 mg PO DAILY [facility] Last Admin: 08/04/19 08:28 Dose: Not Given Lorazepam (Ativan) 0 mg IVPUSH Q4H PRN; Protocol PRN Reason: Withdrawal Symptoms Lorazepam (Ativan) 0 mg PO Q4H PRN; Protocol PRN Reason: Withdrawal Symptoms Budesonide/Formoterol 160-4.5 Mcg/Puff 6 Gm Inhaler 2 each INH BID [facility] Last Admin: 08/05/19 08:26 Dose: Not Given Pregabalin (Lyrica) 75 mg PO TID PRN PRN Reason: Pain Last Admin: 08/03/19 13:05 Dose: 75 mg Warfarin Sodium (Coumadin Ask) 1 each PO DAILY@1400 [facility] Discontinued Medications Furosemide (Lasix) 40 mg IVPUSH NOW ONE Stop: 08/03/19 11:45 Last Admin: 08/03/19 13:05 Dose: 40 mg Furosemide (Lasix) 40 mg IVPUSH NOW ONE Stop: 08/04/19 04:05 Last Admin: 08/04/19 04:19 Dose: 40 mg Furosemide (Lasix) 40 mg IVPUSH NOW ONE Stop: 08/04/19 10:01 Last Admin: 08/04/19 10:48 Dose: 40 mg Metoclopramide HCl (Reglan) Confirm Administered Dose 10 mg .ROUTE .STK-MED ONE Stop: 08/03/19 09:11 Last Admin: 08/03/19 09:29 Dose: Not Given Metoclopramide HCl (Reglan) 10 mg IVPUSH ONETIME ONE Stop: 08/03/19 09:30 Last Admin: 08/03/19 10:23 Dose: 10 mg Warfarin Sodium (Coumadin) 2.5 mg PO DAILY [facility] Last Admin: 08/03/19 12:56 Dose: Not Given Warfarin Sodium (Coumadin) 2.5 mg PO DAILY@1400 [facility] Last Admin: 08/03/19 13:03 Dose: 2.5 mg Warfarin Sodium (Coumadin) 5 mg PO 08/04/19@1400 [facility] Stop: 08/04/19 14:01 Last Admin: 08/04/19 14:05 Dose: 5 mg - Exam Quality Assessment: Supplemental Oxygen General: Alert, Oriented, Cooperative Neck: No: JVD Lungs: Crackles (L>R) Cardiovascular: Irregular Rhythm GI/Abdominal Exam: Normal Bowel Sounds, Soft, Non-Tender, No Distention Extremities: No Pedal Edema Skin: Warm, Dry, Intact Neurological: No New Focal Deficit Psy/Mental Status: Alert, Normal Affect, Normal Mood Sepsis Event Note - Evaluation Sepsis Screening Result: No Definite Risk - Focused Exam Vital Signs: Vital Signs Temp Pulse Resp BP Pulse Ox 08/05/19 07:15 97.9 F 98 21 H 137/65 95 08/05/19 04:00 97.6 F 94 23 H 135/72 92 L 08/05/19 00:27 99.1 F 91 21 H 121/54 L 91 L Date Exam was Performed: 08/05/19 Time Exam was Performed: 11:11 - Problem List Review Problem List Initiated/Reviewed/Updated: Yes - My Orders Last 24 Hours: My Active Orders 08/05/19 07:06 Magnesium Sulfate/Water [Magnesium Sulfate in Water Premix] 2 gm Premix Bag 1 bag IV ONETIME - Plan Plan:: 63 yo male admitted for CHF exacerbation and hyponatremia from alcohol abuse 1. CHF exacerbation with acute on chronic hypoxic respiratory failure. Continue diuresing with lasix, strict i/os, requiring supplemental oxygen and will wean as tolerated. 2. Hyponatremia: improving sodium 133 today 3. Hypomagnesemia- replace with 2 g, recheck in AM 4. Chronic anemia- stable, continue to monitor 5. Alcohol abuse-continue CIWAA/Ativan protocol, thiamin and folic acid. Has not had any signs of withdrawal and has not required any Ativan.
[2019-08-05] MEDS: Lisinopril 5 MG Tab PO SCH (08:54)
[2019-08-05] MEDS ORDERED: Warfarin 5 MG Tab PO ONE (14:00)
[2019-08-05] MEDS: Folic Acid 1 MG Tab PO SCH (21:11)
[2019-08-06 06:44] LABS: BLOOD UREA NITROGEN,BUN 18 mg/dL (7.0-18.0); CARBON DIOXIDE,CO2 34.3 mmol/L (21.0-32.0); CHLORIDE,CL 95 mmol/L (98-107); GLUCOSE RANDOM 147 mg/dL (74-106); POTASSIUM,K 4.2 mmol/L (3.5-5.1); SODIUM,NA 136 mmol/L (136-148)
[2019-08-06] MEDS: Insulin Aspart 100 Units/ML 3 ML Pen SUBCUT SCH ×2 (08:09→12:00)
[2019-08-06] MEDS: Furosemide 40 MG/4 ML VIAL IVPUSH SCH (08:10)
[2019-08-06] MEDS: Diltiazem 120 MG Cap.CD PO SCH (08:10)
--- NOTE | 2019-08-06 08:13 | PCM.DCSUM1 ---
Discharge Summary - Hospital Course HPI Initial Comments: Admission Date:08/03/19 Discharge Date: 08/06/19 Admission Diagnosis: 1. Acute on chronic hypoxic respiratory failure secondary to CHF exacerbation 2. 2. Hyponatremia 3. Chronic anemia 4. Alcohol use 5. Chronic conditions- Afib, HTN, DMII Discharge Diagnosis: 1. Acute on chronic hypoxic respiratory failure secondary to CHF exacerbation - resolved 2. Hyponatremia-resolved 3. Chronic anemia- stable 4. Alcohol use 5. Chronic conditions- Afib, HTN, DMII 6. Subtheurapeutic INR Procedures: None Consults: None Hospital Course: The patient is a 63 year old male with past medical history of Afib, oxygen dependent COPD, CHF, HTN, and alcohol use who presented after passing out. States he was walking out from gas station, felt like he was losing his air, then remembers waking up on the ground. Family states he passed out, not sure if he hit his head, no headache, no vision changes, tried to vomit in ambulance. Reports that this morning his O2 sat was 65% on his baseline 4 L of home oxygen. Reports wheezing, orthopnea, and weight gain. Denies fever/chills, chest pain, cough. Last echo was Jun 2019 with EF of 60-65 %. Patient reports he drinks 18 beers a day but denies hx of withdrawal symptoms or withdrawal seizures. In the ER, work up showed no leukocytosis, chronic anemia at baseline, INR of 1.68, Na of 124, negative troponin. BNP of 901. CXR showed right pleural effusion and pulmonary vessel congestion. Head CT showed no acute findings. EKG showed Afib, rate controlled, and old LBBB. Admitted to medical floor for CHF exacerbation, was diuresed/fluid restricted and his oxygenation status improved. He has a chronic hyponatremia which improved with diuresis and fluid restriction. His H/H was followed daily and was stable. For his alcohol use, CIWA/Ativan protocol was ordered but no signs of withdrawal. Monitored on telemetry without any significant events. INR subtherapeutic and warfarin dose adjusted. Continued home meds for chronic conditions. By day of discharge patient felt better, was back on home oxygen requirement and wanted to go home. Disposition: Home Discharge Condition: vitals stable, tolerating oral diet, ambulating without difficulty, symptom improvement Discharge Instructions: regular diet as tolerated, activity as tolerated, take medications as prescribed. Symptoms to report to physician include fever/chills , chest pain, shortness of breath, abdominal pain, erythema, drainage/discharge , or not improving as expected. Monitor for signs of overload- lower extremity edema, increased oxygen demand, gaining 1 lb in a day or 3 in 5 days. 2 L fluid restriction and limit salt intake. Avoid alcohol use. Follow up on Saturday for INR check. Discharge Medications: Diltiazem HCl [Dilt-Xr] 240 mg PO DAILY Lisinopril 10 mg PO DAILY Sildenafil [Revatio] 60 mg PO DAILY PRN metFORMIN [Glucophage XR] 1,000 mg PO ACDINNER Pregabalin 75 mg PO TID PRN Folic Acid 1 mg PO BEDTIME 30 Days #30 tablet Budesonide/Formoterol [Symbicort 160-4.5 MCG] 2 puff INH BID Torsemide 60 mg PO DAILY Warfarin [Coumadin] 5 mg PO DAILY Follow-up: 1. PCP- Dr. Araiza 08/17/19 - Discharge Data Discharge Date: 08/06/19 Discharge Disposition: Home, Self-Care 01 Condition: Fair - Referral to Home Health Primary Care Physician: Herminio Araiza MD - Discharge Plan Home Medications: Home Meds Diltiazem HCl [Dilt-Xr] 240 mg PO DAILY 10/31/16 [History] Lisinopril 10 mg PO DAILY 12/03/18 [History] Sildenafil [Revatio] 60 mg PO DAILY PRN 12/03/18 [History] metFORMIN [Glucophage XR] 1,000 mg PO ACDINNER 12/03/18 [History] Pregabalin 75 mg PO TID PRN 05/21/19 [History] Folic Acid 1 mg PO BEDTIME 30 Days #30 tablet 05/25/19 [Rx] Budesonide/Formoterol [Symbicort 160-4.5 MCG] 2 puff INH BID 08/03/19 [History] Torsemide 60 mg PO DAILY 08/03/19 [History] Warfarin [Coumadin] 5 mg PO DAILY 14 Days #14 tab 08/06/19 [Rx] Patient Handouts: Heart Failure, [id number] Referrals: Herminio Araiza MD [Primary Care Provider] - 08/17/19 10:00 am - Discharge Summary/Plan Comment DC Time >30 min.: No - Patient Data Vitals - Most Recent: Last Vital Signs Temp 98.1 F 08/06/19 07:32 Pulse 75 08/06/19 07:32 Resp 16 08/06/19 07:32 BP 134/61 08/06/19 07:32 Pulse Ox 95 08/06/19 07:32 Weight - Most Recent: 84.686 kg I&O - Last 24 hours: Intake & Output 08/05/19 08/06/19 08/06/19 22:59 06:59 14:59 Intake Total 850 250 Output Total 1325 950 Balance -475 -700 Lab Results - Last 24 hrs: Laboratory Results - last 24 hr 08/05/19 08/05/19 08/06/19 Range/Units 12:06 17:04 05:52 WBC 7.48 (4.0-11.0) K/uL RBC 3.89 L (4.50-5.90) M/uL Hgb 11.5 L (13.0-17.0) g/dL Hct 35.3 L (38.0-50.0) % MCV 90.7 (80.0-98.0) fL MCH 29.6 (27.0-32.0) pg MCHC 32.6 (31.0-37.0) g/dL RDW Std Deviation 50.8 (28.0-62.0) fl RDW Coeff of Ijeoma 15 (11.0-15.0) % Plt Count 188 (150-400) K/uL MPV 9.60 (7.40-12.00) fL Neut % (Auto) 74.1 (48.0-80.0) % Lymph % (Auto) 9.5 L (16.0-40.0) % [place] % (Auto) 13.2 (0.0-15.0) % Eos % (Auto) 2.4 (0.0-7.0) % Baso % (Auto) 0.8 (0.0-1.5) % Neut # (Auto) 5.5 (1.4-5.7) K/uL Lymph # (Auto) 0.7 (0.6-2.4) K/uL [place] # (Auto) 1.0 H (0.0-0.8) K/uL Eos # (Auto) 0.2 (0.0-0.7) K/uL Baso # (Auto) 0.1 (0.0-0.1) K/uL Nucleated RBC % 0.0 /100WBC Nucleated RBCs # 0 K/uL INR Sodium (136-148) mmol/L Potassium (3.5-5.1) mmol/L Chloride (98-107) mmol/L Carbon Dioxide (21.0-32.0) mmol/L BUN (7.0-18.0) mg/dL Creatinine (0.8-1.3) mg/dL Est Cr Clr Drug Dosing Estimated GFR (MDRD) ml/min Glucose (74-106) mg/dL POC Glucose 166 H 106 (60-110) mg/dL Calcium (8.5-10.1) mg/dL Phosphorus (2.6-4.7) mg/dL Magnesium (1.8-2.4) mg/dL 08/06/19 08/06/19 08/06/19 Range/Units 05:52 05:55 07:13 WBC (4.0-11.0) K/uL RBC (4.50-5.90) M/uL Hgb (13.0-17.0) g/dL Hct (38.0-50.0) % MCV (80.0-98.0) fL MCH (27.0-32.0) pg MCHC (31.0-37.0) g/dL RDW Std Deviation (28.0-62.0) fl RDW Coeff of Ijeoma (11.0-15.0) % Plt Count (150-400) K/uL MPV (7.40-12.00) fL Neut % (Auto) (48.0-80.0) % Lymph % (Auto) (16.0-40.0) % [place] % (Auto) (0.0-15.0) % Eos % (Auto) (0.0-7.0) % Baso % (Auto) (0.0-1.5) % Neut # (Auto) (1.4-5.7) K/uL Lymph # (Auto) (0.6-2.4) K/uL [place] # (Auto) (0.0-0.8) K/uL Eos # (Auto) (0.0-0.7) K/uL Baso # (Auto) (0.0-0.1) K/uL Nucleated RBC % /100WBC Nucleated RBCs # K/uL INR 1.42 Sodium 136 (136-148) mmol/L Potassium 4.2 (3.5-5.1) mmol/L Chloride 95 L (98-107) mmol/L Carbon Dioxide 34.3 H (21.0-32.0) mmol/L BUN 18 (7.0-18.0) mg/dL Creatinine 0.8 (0.8-1.3) mg/dL Est Cr Clr Drug Dosing TNP Estimated GFR (MDRD) > 60.0 ml/min Glucose 147 H (74-106) mg/dL POC Glucose 125 H (60-110) mg/dL Calcium 9.6 (8.5-10.1) mg/dL Phosphorus 4.1 (2.6-4.7) mg/dL Magnesium 1.8 (1.8-2.4) mg/dL Med Orders - Current: Current Medications Albuterol/Ipratropium (Duoneb 3.0-0.5 Mg/3 Ml) 3 ml NEB Q6HRRT PRN PRN Reason: Shortness of Breath Last Admin: 08/04/19 04:30 Dose: 3 ml Diltiazem HCl (Cardizem Cd) 240 mg PO DAILY [facility] Last Admin: 08/05/19 08:35 Dose: 240 mg Folic Acid (Folic Acid) 1 mg PO BEDTIME JADEN Last Admin: 08/05/19 21:11 Dose: 1 mg Furosemide (Lasix) 40 mg IVPUSH BIDDIURETIC [facility] Last Admin: 08/05/19 14:00 Dose: 40 mg Insulin Aspart (Novolog) 0 unit SUBCUT TIDAC [facility]; Protocol Last Admin: 08/05/19 17:24 Dose: Not Given Lisinopril (Prinivil) 10 mg PO DAILY [facility] Lorazepam (Ativan) 0 mg IVPUSH Q4H PRN; Protocol PRN Reason: Withdrawal Symptoms Lorazepam (Ativan) 0 mg PO Q4H PRN; Protocol PRN Reason: Withdrawal Symptoms Budesonide/Formoterol 160-4.5 Mcg/Puff 6 Gm Inhaler 2 each INH BID [facility] Last Admin: 08/05/19 21:13 Dose: Not Given Pregabalin (Lyrica) 75 mg PO TID PRN PRN Reason: Pain Last Admin: 08/03/19 13:05 Dose: 75 mg Warfarin Sodium (Coumadin Ask) 1 each PO DAILY@1400 [facility] Last Admin: 08/05/19 14:07 Dose: Not Given Discontinued Medications Furosemide (Lasix) 40 mg IVPUSH NOW ONE Stop: 08/03/19 11:45 Last Admin: 08/03/19 13:05 Dose: 40 mg Furosemide (Lasix) 40 mg IVPUSH NOW ONE Stop: 08/04/19 04:05 Last Admin: 08/04/19 04:19 Dose: 40 mg Furosemide (Lasix) 40 mg IVPUSH NOW ONE Stop: 08/04/19 10:01 Last Admin: 08/04/19 10:48 Dose: 40 mg Magnesium Sulfate 2 gm/ Premix 50 mls @ 25 mls/hr IV ONETIME ONE Stop: 08/05/19 09:05 Last Admin: 08/05/19 08:18 Dose: 25 mls/hr Lisinopril (Prinivil) 10 mg PO DAILY [facility] Last Admin: 08/05/19 08:54 Dose: 10 mg Metoclopramide HCl (Reglan) Confirm Administered Dose 10 mg .ROUTE .STK-MED ONE Stop: 08/03/19 09:11 Last Admin: 08/03/19 09:29 Dose: Not Given Metoclopramide HCl (Reglan) 10 mg IVPUSH ONETIME ONE Stop: 08/03/19 09:30 Last Admin: 08/03/19 10:23 Dose: 10 mg Warfarin Sodium (Coumadin) 2.5 mg PO DAILY [facility] Last Admin: 08/03/19 12:56 Dose: Not Given Warfarin Sodium (Coumadin) 2.5 mg PO DAILY@1400 [facility] Last Admin: 08/03/19 13:03 Dose: 2.5 mg Warfarin Sodium (Coumadin) 5 mg PO 08/04/19@1400 JADEN Stop: 08/04/19 14:01 Last Admin: 08/04/19 14:05 Dose: 5 mg Warfarin Sodium (Coumadin) 5 mg PO DAILY@1400 ONE Stop: 08/05/19 14:01 Last Admin: 08/05/19 14:05 Dose: 5 mg
[2019-08-06] MEDS ORDERED: Lisinopril 10 MG Tab PO SCH (09:00)
[2019-08-06] MEDS: Budesonide/Formoterol 160-4.5 MCG/Puff 6 GM Inhaler INH SCH (10:07)
[2019-08-06 12:02] VITALS: BP 142/60; PULSE 74
== END 2019-08-06 12:15 | disposition home or self-care (01) | DRG 291 ==
LOC: MW.ED 09:02 → MW.MS 11:12 → OBSVTOIN 11:44 → MW.MS 11:45
PROVIDERS: ADMIT Internal Medicine; ATTEND Internal Medicine
DX: I11.0 Hypertensive heart disease with heart failure (principal); J96.21 Acute and chronic respiratory failure with hypoxia; E87.1 Hypo-osmolality and hyponatremia; I27.20 Pulmonary hypertension, unspecified; F10.10 Alcohol abuse, uncomplicated; W00.0XXA Fall on same level due to ice and snow, initial encounter; M10.9 Gout, unspecified; R11.0 Nausea; E83.42 Hypomagnesemia; Z90.49 Acquired absence of other specified parts of digestive tract; J44.9 Chronic obstructive pulmonary disease, unspecified; I50.9 Heart failure, unspecified; E11.9 Type 2 diabetes mellitus without complications; Z86.010 Personal history of colon polyps; D64.9 Anemia, unspecified; I48.91 Unspecified atrial fibrillation; Z79.84 Long term (current) use of oral hypoglycemic drugs; Z79.01 Long term (current) use of anticoagulants; Z79.899 Other long term (current) drug therapy; Z87.891 Personal history of nicotine dependence
CPT/HCPCS: 36415; 70450; 71045; 80053; 83880; 84484; 85025; 85610; 93005; J2765; 80048; 82962; 83735; 84100; A9270-GY; J1815-GY; J1940; J3475; J7620-GY